=== PATIENT | female | born 1995 | race Caucasian/White ===

== ENCOUNTER 2016-11-16 11:19 | Emergency (ER) | payer OTHER ==
[2016-11-16] MEDS ORDERED: ONDANSETRON 4 MG/2 ML VIAL IVP STA (12:38)
[2016-11-16] MEDS ORDERED: SODIUM CHLORIDE 0.9% 1,000 ML IV STA (12:38)
--- NOTE | 2016-11-16 12:40 | ED ---
Nausea/Vomiting/Diarrhea HPI - General Chief complaint: Nausea/Vomiting/Diarrhea Stated complaint: Flu symptoms Time Seen by Provider: 11/16/16 12:33 Source: patient Mode of arrival: ambulatory Limitations: no limitations - History of Present Illness Initial comments: 21-year-old female onset of vomiting 11:00 last night not able keep anything down. Diarrhea no abdominal pain feels hot and cold no definite fever. Her children have had acute gastroenteritis. No earache mild runny nose minimal cough. No blood in the stool black stools no urinary frequency urgency dysuria. - Related Data Home Medications Medication Instructions Recorded Confirmed ALPRAZolam [Xanax] 0.5 mg PO BID PRN 06/30/16 11/16/16 Etonogestrel/Ethinyl Estradiol 1 ring VAGINAL Q21D 06/30/16 11/16/16 [Nuvaring Vaginal Ring] ARIPiprazole [Abilify] 2 mg PO DAILY 11/16/16 11/16/16 Dextroamphetamine/Amphetamine 20 mg PO BID 11/16/16 11/16/16 [Adderall] Previous Rx's Medication Instructions Recorded Ondansetron Odt [Zofran Odt] 8 mg PO Q8HR PRN #6 tab 11/16/16 Allergies Allergy/AdvReac Type Severity Reaction Status Date / Time morphine Allergy Rash/Hives Verified 11/16/16 13:15 Sulfa (Sulfonamide Allergy Rash/Hives Verified 11/16/16 13:15 Antibiotics) topiramate [From Topamax] Allergy Dyspnea Verified 11/16/16 13:15 Review of Systems ROS Statement: Those systems with pertinent positive or pertinent negative responses have been documented in the HPI. ROS Other: All systems not noted in ROS Statement are negative. Constitutional: Reports: chills. Denies: fever Eyes: Denies: eye pain, eye discharge ENT: Denies: ear pain, throat pain Respiratory: Reports: cough Cardiovascular: Denies: chest pain Gastrointestinal: Reports: nausea, vomiting, diarrhea. Denies: abdominal pain Genitourinary: Denies: urgency, frequency Musculoskeletal: Denies: back pain Skin: Denies: rash Psychiatric: Denies: anxiety, depression Hematological/Lymphatic: Denies: easy bleeding, easy bruising Past Medical History Past Medical History: Thyroid Disorder Additional Past Medical History / Comment(s): history of hepatitis A positive but no illness that she is aware of, breast biopsy right side, not cancer History of Any Multi-Drug Resistant Organisms: None Reported Past Surgical History: Orthopedic Surgery Additional Past Surgical History / Comment(s): childhood ear surgery, ACL repair , facial reconstruction on the left side of her face due to a dog bite at age 1 Past Anesthesia/Blood Transfusion Reactions: No Reported Reaction Past Psychological History: ADD/ADHD, Anxiety, Depression Smoking Status: Heavy tobacco smoker Past Alcohol Use History: Occasional Past Drug Use History: Marijuana - Past Family History Mother Family Medical History: No Reported History General Exam Limitations: no limitations General appearance: alert, lethargic Head exam: Present: atraumatic Eye exam: Present: PERRL, EOMI ENT exam: Present: normal oropharynx, mucous membranes dry Respiratory exam: Present: normal lung sounds bilaterally Cardiovascular Exam: Present: regular rate, normal heart sounds GI/Abdominal exam: Present: soft, normal bowel sounds. Absent: tenderness, guarding, rebound Neurological exam: Present: alert, CN II-XII intact Psychiatric exam: Present: normal affect, normal mood Skin exam: Present: warm, dry Course Vital Signs 11/16/16 11/16/16 11:23 13:24 Temperature 97.8 F Pulse Rate 77 72 Respiratory 20 18 Rate Blood Pressure 121/82 113/58 O2 Sat by Pulse 97 97 Oximetry Medical Decision Making - Medical Decision Making Nausea better with Zofran given a liter fluids is doing better tolerated a Popsicle would like to go home was sent home with a Zofran ODT. Follow-up may return if not able keep anything down we'll gradually increase her diet and is been discussed. - Lab Data Result diagrams: 11/16/16 13:22 11/16/16 13:22 Lab Results 11/16/16 11/16/16 Range/Units 13:22 13:22 WBC 8.4 (3.8-10.6) k/uL RBC 5.22 (3.80-5.40) m/uL Hgb 14.9 (11.4-16.0) gm/dL Hct 45.9 (34.0-46.0) % MCV 88.0 (80.0-100.0) fL MCH 28.7 (25.0-35.0) pg MCHC 32.6 (31.0-37.0) g/dL RDW 13.3 (11.5-15.5) % Plt Count 369 (150-450) k/uL Neutrophils % 84 % Lymphocytes % 12 % Monocytes % 2 % Eosinophils % 1 % Basophils % 0 % Neutrophils # 7.1 (1.3-7.7) k/uL Lymphocytes # 1.0 (1.0-4.8) k/uL Monocytes # 0.2 (0-1.0) k/uL Eosinophils # 0.1 (0-0.7) k/uL Basophils # 0.0 (0-0.2) k/uL Sodium 141 (137-145) mmol/L Potassium 4.0 (3.5-5.1) mmol/L Chloride 108 H (98-107) mmol/L Carbon Dioxide 21 L (22-30) mmol/L Anion Gap 12 mmol/L BUN 10 (7-17) mg/dL Creatinine 0.70 (0.52-1.04) mg/dL Est GFR (MDRD) Af Amer >60 (>60 ml/min/1.73 sqM) Est GFR (MDRD) Non-Af >60 (>60 ml/min/1.73 sqM) Glucose 110 H (74-99) mg/dL Calcium 9.7 (8.4-10.2) mg/dL Disposition Clinical Impression: Dehydration, Gastroenteritis Disposition: HOME SELF-CARE Instructions: Acute Nausea and Vomiting (ED) Prescriptions: Ondansetron Odt [Zofran Odt] 8 mg PO Q8HR PRN #6 tab PRN Reason: Nausea Referrals: Rashard Stock MD [Primary Care Provider] - 1-2 days Time of Disposition: 14:58
[2016-11-16 13:34] LABS: Basophils % (A) 0 %; CH 29.1; CHCM 33.2; Eosinophils # (A) 0.1 k/uL (0-0.7); Eosinophils % (A) 1 %; HCT 45.9 % (34.0-46.0); HDW 2.61; HGB 14.9 gm/dL (11.4-16.0); Luc # (Auto) 0.06; Luc % (Auto) 1; Lymphocytes % (A) 12 %; MCH 28.7 pg (25.0-35.0); MCHC 32.6 g/dL (31.0-37.0); Mean Platelet Volume 6.2; Monocytes # (A) 0.2 k/uL (0-1.0); Monocytes % (A) 2 %; Neutrophils # (A) 7.1 k/uL (1.3-7.7); Neutrophils % (A) 84 %; RBC 5.22 m/uL (3.80-5.40); RDW 13.3 % (11.5-15.5); WBC 8.4 k/uL (3.8-10.6); WBC (Perox) 8.82
[2016-11-16 13:50] LABS: Anion Gap 12 mmol/L; Blood Urea Nitrogen 10 mg/dL (7-17); Calcium 9.7 mg/dL (8.4-10.2); Carbon Dioxide 21 mmol/L (22-30); Chloride 108 mmol/L (98-107); Glucose 110 mg/dL (74-99); Non-African American GFR(MDRD) >60 (>60 ml/min/1.73 sqM); Sodium 141 mmol/L (137-145)
[2016-11-16 15:01] VITALS: BP 117/70; PULSE 84; RESP 16; TEMP 98.9
== END 2016-11-16 15:05 | disposition home or self-care (01) ==
LOC: EC 11:19
DX: K52.9 Noninfective gastroenteritis and colitis, unspecified (principal); E86.0 Dehydration; R05 Cough; R09.89 Other specified symptoms and signs involving the circulatory and respiratory systems; F90.9 Attention-deficit hyperactivity disorder, unspecified type; F41.9 Anxiety disorder, unspecified; F32.9 Major depressive disorder, single episode, unspecified; F17.200 Nicotine dependence, unspecified, uncomplicated; Z79.899 Other long term (current) drug therapy; Z88.2 Allergy status to sulfonamides; Z88.5 Allergy status to narcotic agent; Z88.8 Allergy status to other drugs, medicaments and biological substances
CPT/HCPCS: 36415; 80048; 85025; 99284; 96374; 96361 ×2; J2405

== ENCOUNTER 2016-12-03 20:17 | Emergency (ER) | payer OTHER ==
[2016-12-03 21:00] VITALS: BP 131/80; PULSE 102; RESP 20; TEMP 98.6
[2016-12-03] MEDS ORDERED: KETOROLAC 60 MG/2 ML VIAL IM STA (21:27)
[2016-12-03] MEDS ORDERED: ORPHENADRINE 30 MG/ML 2 ML VIAL IM STA (21:27)
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
== END 2016-12-03 22:12 | disposition home or self-care (01) ==
LOC: EC 20:17
DX: M62.838 Other muscle spasm (principal); M54.2 Cervicalgia; R51 Headache; F90.9 Attention-deficit hyperactivity disorder, unspecified type; E07.9 Disorder of thyroid, unspecified; F17.200 Nicotine dependence, unspecified, uncomplicated; Z88.2 Allergy status to sulfonamides; Z88.0 Allergy status to penicillin; Z88.5 Allergy status to narcotic agent; Z79.899 Other long term (current) drug therapy; V49.40XA Driver injured in collision with unspecified motor vehicles in traffic accident, initial encounter; Y92.410 Unspecified street and highway as the place of occurrence of the external cause
CPT/HCPCS: 99284; 96372 ×2; 72070; 72040; J2360; J1885

== ENCOUNTER 2017-02-24 15:42 | Emergency (ER) | payer OTHER ==
[2017-02-24] MEDS ORDERED: cefTRIAXone 250 MG VIAL IM STA (17:18)
[2017-02-24] MEDS ORDERED: AZITHROMYCIN 500 MG TAB PO STA (17:18)
[2017-02-24 17:25] LABS: Appearance,Urine Cloudy (Clear); Bacteria,Urine Rare /hpf; Bilirubin,Urine Negative (Negative); Glucose,Urine (UA) Negative (Negative); Ketones,Urine Negative (Negative); Leukocyte Esterase,Urine Large (Negative); Mucus,Urine Occasional /hpf; Nitrite,Urine Negative (Negative); PH, Urine 6.5 (5.0-8.0); Particle Count 34363; Protein,Urine Trace (Negative); RBC,Urine 8 /hpf (0-5); Specific Gravity,Urine 1.027 (1.001-1.035); Squamous Epithelial Cell,Urine 29 /hpf (0-4); UA Billing (MACRO vs. MICRO) MICRO; Urobilinogen,Urine <2.0 mg/dL (<2.0); WBC,Urine 4 /hpf (0-5)
--- NOTE | 2017-02-24 17:33 | ED ---
General Adult HPI - General Chief complaint: Abdominal Pain Stated complaint: Cough/sore throat/abd pain Time Seen by Provider: 02/24/17 16:21 Source: patient Mode of arrival: ambulatory Limitations: no limitations - History of Present Illness Initial comments: Patient is a 21-year-old female who presents the emergency department for evaluation of vaginal irritation. Patient states that she recently broke up with her significant other for some period of time and is concerned that he may have had other partners during that time, she states she is now having unprotected intercourse with him. She states that for the past approximately 1- 2 weeks she's been experiencing increased vaginal discharge and itching. She reports she's been treated for STIs as well as bacterial vaginosis in the past but this does not feel like either of those. Patient states she initially thought the discharge was physiologicdue to using NuvaRing as control. However it has persisted even after her menses which was last week she became concerned that this may be essentially transmitted infection. In addition the patient reports that she's been suffering from URI like symptoms for a number of weeks. He states that she saw her primary care physician 2 weeks ago and was prescribed Claritin for seasonal ALLERGIES. She reports that despite being compliant with Claritin she continues to experience fullness in her ears, congestion and cough early in the morning. Patient does report that she is in every day cigarette smoker but she has been trying to reduce the frequency of smoking. - Related Data Home Medications Medication Instructions Recorded Confirmed ALPRAZolam [Xanax] 0.5 mg PO BID PRN 06/30/16 02/24/17 Etonogestrel/Ethinyl Estradiol 1 ring VAGINAL Q21D 06/30/16 02/24/17 [Nuvaring Vaginal Ring] ARIPiprazole [Abilify] 2 mg PO DAILY 11/16/16 02/24/17 Dextroamphetamine/Amphetamine 20 mg PO BID 11/16/16 02/24/17 [Adderall] Levothyroxine Sodium [Synthroid] 150 mcg PO DAILY 12/03/16 02/24/17 Loratadine [Claritin] 10 mg PO DAILY 02/24/17 02/24/17 Naproxen 500 mg PO BID PRN 02/24/17 02/24/17 Previous Rx's Medication Instructions Recorded metroNIDAZOLE [Flagyl] 500 mg PO BID #14 tab 02/24/17 Allergies Allergy/AdvReac Type Severity Reaction Status Date / Time morphine Allergy Rash/Hives Verified 02/24/17 16:14 Sulfa (Sulfonamide Allergy Rash/Hives Verified 02/24/17 16:14 Antibiotics) topiramate [From Topamax] Allergy Anaphylaxis Verified 02/24/17 16:14 amoxicillin AdvReac Nausea & Verified 02/24/17 16:14 Vomiting Review of Systems ROS Statement: Those systems with pertinent positive or pertinent negative responses have been documented in the HPI. ROS Other: All systems not noted in ROS Statement are negative. Constitutional: Reports: fever (subjective). Denies: chills Eyes: Denies: vision change ENT: Reports: ear pain, congestion. Denies: hearing loss Respiratory: Reports: cough (productive in the mornings, chronic for years) Cardiovascular: Denies: chest pain, edema Endocrine: Denies: fatigue Gastrointestinal: Denies: abdominal pain, nausea, vomiting Genitourinary: Reports: discharge. Denies: urgency, dysuria, frequency, abnormal menses, dyspareunia Skin: Denies: rash, lesions Neurological: Denies: headache Psychiatric: Denies: anxiety, depression Hematological/Lymphatic: Denies: easy bleeding, easy bruising Past Medical History Past Medical History: Thyroid Disorder Additional Past Medical History / Comment(s): history of hepatitis A positive but no illness that she is aware of, breast biopsy right side, not cancer History of Any Multi-Drug Resistant Organisms: None Reported Past Surgical History: Orthopedic Surgery Additional Past Surgical History / Comment(s): childhood ear surgery, ACL repair , facial reconstruction on the left side of her face due to a dog bite at age 1 Past Anesthesia/Blood Transfusion Reactions: No Reported Reaction Past Psychological History: ADD/ADHD, Anxiety, Depression Smoking Status: Current every day smoker Past Alcohol Use History: Occasional Past Drug Use History: Marijuana - Past Family History Mother Family Medical History: No Reported History General Exam Limitations: no limitations General appearance: alert, in no apparent distress, obese Head exam: Present: atraumatic, normocephalic, normal inspection Eye exam: Present: normal appearance, PERRL, EOMI. Absent: scleral icterus, conjunctival injection, periorbital swelling ENT exam: Present: normal exam, mucous membranes moist Neck exam: Present: normal inspection. Absent: tenderness, meningismus, lymphadenopathy Respiratory exam: Present: normal lung sounds bilaterally. Absent: respiratory distress, wheezes, rales, rhonchi, stridor Cardiovascular Exam: Present: regular rate, normal rhythm, normal heart sounds. Absent: systolic murmur, diastolic murmur, rubs, gallop, clicks GI/Abdominal exam: Present: soft, normal bowel sounds. Absent: distended, tenderness, guarding, rebound, rigid Rectal exam: Present: deferred External exam: Present: normal external exam. Absent: erythema, swelling, lesions Speculum exam: Present: vaginal discharge. Absent: vaginal bleeding, laceration (white vaginal discharge, appears physiologic) By manual exam: Present: normal by manual exam. Absent: cervical motion tenderness, adnexal tenderness, adnexal mass Extremities exam: Present: normal inspection, full ROM, normal capillary refill. Absent: tenderness, pedal edema, joint swelling, calf tenderness Back exam: Present: normal inspection Neurological exam: Present: alert, oriented X3, CN II-XII intact Psychiatric exam: Present: normal affect, normal mood Skin exam: Present: warm, dry, intact, normal color. Absent: rash Course Vital Signs 02/24/17 16:01 Temperature 98.3 F Pulse Rate 103 H Respiratory 20 Rate Blood Pressure 129/88 O2 Sat by Pulse 99 Oximetry - Reevaluation(s) Reevaluation #1: Patient re-evaluated, sitting on bed eating cheez-its comfortably Pelvic exam completed, thin whitish discharge, will treat for BV. Patient requests treatment for STI rather than waiting for results. 02/24/17 17:21 Medical Decision Making - Medical Decision Making Patient was seen and evaluated vital signs were reviewed Patient was noted to be tachycardic while in triage, however was not tachycardic upon evaluation Does express some level of anxiety and embarrassment regarding her chief complaint Patient with concern for exposure to sexually transmitted infection, some vaginal itching and discharge Urinalysis obtained appears grossly contaminated with multiple squamous epithelium, no concern for urinary tract infection from the patient and therefore will not treat Physical exam with [place] white discharge, no purulence, no cervical motion tenderness or adnexal tenderness Patient requesting empiric treatment for sexual transmitted infection, Rocephin , azithromycin ordered. Patient prescribed Flagyl for bacterial vaginosis. I advised the patient that she cannot drink alcohol while taking Flagyl as it can cause a severe reaction. Patient stated that she has taken Flagyl before and is aware. She states she will abstain from any alcohol intake while taking Flagyl and for 24 hours after completing the medication. All questions pertaining to care were answered to the best of my ability. Patient was discharged home in stable condition and advised she will be notified of any positive culture results. Otherwise she can call medical records for her results. - Lab Data Lab Results 02/24/17 02/24/17 02/24/17 Range/Units 16:50 16:50 17:17 Urine Color Yellow Urine Appearance Cloudy H (Clear) Urine pH 6.5 (5.0-8.0) Ur Specific [place] 1.027 (1.001-1.035) Urine Protein Trace H (Negative) Urine Glucose (UA) Negative (Negative) Urine Ketones Negative (Negative) Urine Blood Negative (Negative) Urine Nitrite Negative (Negative) Urine Bilirubin Negative (Negative) Urine Urobilinogen <2.0 (<2.0) mg/dL Ur Leukocyte Esterase Large H (Negative) Urine RBC 8 H (0-5) /hpf Urine WBC 4 (0-5) /hpf Ur Squamous Epith Cells 29 H (0-4) /hpf Urine Bacteria Rare H (None) /hpf Urine Mucus Occasional H (None) /hpf Urine Yeast (Budding) Occasional H (None) /hpf Urine HCG, Qual Not Detected (Not Detectd) Trichomonas Ag (Rapid) Negative (Negative) Disposition Clinical Impression: Vaginal discharge Disposition: HOME SELF-CARE Condition: Good Instructions: Bacterial Vaginosis (ED), Vaginal Discharge (ED), Safe Sex (ED), Sexually Transmitted Diseases (ED) Prescriptions: metroNIDAZOLE [Flagyl] 500 mg PO BID #14 tab Referrals: Rashard Stock MD [Primary Care Provider] - 1-2 days Decision Time: 17:36
[2017-02-24 18:38] VITALS: BP 135/90; PULSE 94; RESP 18; TEMP 99
== END 2017-02-24 18:39 | disposition home or self-care (01) ==
LOC: EC 15:42
DX: N89.8 Other specified noninflammatory disorders of vagina (principal); Z20.2 Contact with and (suspected) exposure to infections with a predominantly sexual mode of transmission; E07.9 Disorder of thyroid, unspecified; F32.9 Major depressive disorder, single episode, unspecified; F90.9 Attention-deficit hyperactivity disorder, unspecified type; F17.210 Nicotine dependence, cigarettes, uncomplicated; Z97.5 Presence of (intrauterine) contraceptive device; Z88.0 Allergy status to penicillin; Z88.2 Allergy status to sulfonamides; Z88.5 Allergy status to narcotic agent; Z88.8 Allergy status to other drugs, medicaments and biological substances; Z79.899 Other long term (current) drug therapy
CPT/HCPCS: 99284; 96372; 87591; 87491; 81001; 81025; 87808; 87086; J0696

== ENCOUNTER 2017-04-22 20:50 | Emergency (ER) | payer OTHER ==
[2017-04-22] MEDS ORDERED: SODIUM CHLORIDE 0.9% 1,000 ML IV ONE (21:38)
[2017-04-22] MEDS ORDERED: ACETAMINOPHEN TAB 500 MG TAB PO STA (21:38)
[2017-04-22] MEDS ORDERED: diphenhydrAMINE 50 MG/ML 1 ML VIAL IVP STA (21:40)
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
[2017-04-22 22:20] LABS: Basophils # (A) 0.1 k/uL (0-0.2); Basophils % (A) 1 %; CHCM 33.3; Eosinophils # (A) 0.4 k/uL (0-0.7); Eosinophils % (A) 3 %; HCT 40.9 % (34.0-46.0); HDW 2.73; HGB 13.9 gm/dL (11.4-16.0); Luc # (Auto) 0.15; Luc % (Auto) 1; Lymphocytes # (A) 3.3 k/uL (1.0-4.8); Lymphocytes % (A) 27 %; MCH 29.9 pg (25.0-35.0); MCHC 34.1 g/dL (31.0-37.0); MCV 87.6 fL (80.0-100.0); Mean Platelet Volume 6.3; Monocytes # (A) 0.5 k/uL (0-1.0); Monocytes % (A) 4 %; Neutrophils # (A) 7.7 k/uL (1.3-7.7); Neutrophils % (A) 64 %; RBC 4.67 m/uL (3.80-5.40); RDW 13.3 % (11.5-15.5); WBC 12.2 k/uL (3.8-10.6); WBC (Perox) 12.94
[2017-04-22 22:31] LABS: Partial Thromboplastin Time 23.3 sec (22.0-30.0)
[2017-04-22 22:32] LABS: ALT 70 U/L (9-52); AST 43 U/L (14-36); Alkaline Phosphatase 77 U/L (38-126); Anion Gap 10 mmol/L; Blood Urea Nitrogen 9 mg/dL (7-17); Calcium 9.8 mg/dL (8.4-10.2); Carbon Dioxide 22 mmol/L (22-30); Chloride 108 mmol/L (98-107); Glucose 100 mg/dL (74-99); Non-African American GFR(MDRD) >60 (>60 ml/min/1.73 sqM); Potassium 4.4 mmol/L (3.5-5.1); Sodium 140 mmol/L (137-145); Total Bilirubin 0.3 mg/dL (0.2-1.3); Total Protein 6.7 g/dL (6.3-8.2)
--- NOTE | 2017-04-22 23:24 | US ---
EXAM: US Uterus, Limited CLINICAL HISTORY: Reason: Pain TECHNIQUE: Real-time ultrasound of the maternal uterus (limited) with image documentation. COMPARISON: No relevant prior studies available. FINDINGS: Fetus: A gestational sac is identified in the endometrial canal. A yolk sac is seen. A pole and cardiac activity are not identified. Estimated sonographic gestational age is 5 weeks and 6 days. Uterus: Uterus measures 7.7 x 5.0 x 5.4 cm. No myometrial mass. Adnexa: The ovaries are unremarkable in size and appearance bilaterally with normal vascular flow, measuring 4.1 x 2.0 x 2.7 cm on the right and 3.1 x 2.5 x 1.4 cm on the left. No adnexal masses. Free fluid: No free fluid. IMPRESSION: Early intrauterine with an estimated sonographic gestational age of 5 weeks and 6 days. A pole and cardiac activity were not identified which is likely due to early gestational age. Short interval follow-up is recommended. MTDD
[2017-04-22 23:38] LABS: Appearance,Urine Cloudy (Clear); Bacteria,Urine Rare /hpf; Bilirubin,Urine Negative (Negative); Calcium Oxalate Crystals,Urine Occasional /hpf; Glucose,Urine (UA) Negative (Negative); Ketones,Urine Trace (Negative); Leukocyte Esterase,Urine Small (Negative); Mucus,Urine Rare /hpf; Nitrite,Urine Negative (Negative); PH, Urine 5.5 (5.0-8.0); Particle Count 11472; Protein,Urine 1+ (Negative); RBC,Urine 1 /hpf (0-5); Specific Gravity,Urine 1.021 (1.001-1.035); Squamous Epithelial Cell,Urine 3 /hpf (0-4); UA Billing (MACRO vs. MICRO) MICRO; Urobilinogen,Urine <2.0 mg/dL (<2.0); WBC,Urine 5 /hpf (0-5)
[2017-04-23 00:10] VITALS: BP 103/51; PULSE 85; RESP 17; TEMP 98.7
== END 2017-04-23 00:10 | disposition home or self-care (01) ==
LOC: EC 20:50
DX: O99.89 Other specified diseases and conditions complicating pregnancy, childbirth and the puerperium (principal); M62.838 Other muscle spasm; O99.281 Endocrine, nutritional and metabolic diseases complicating pregnancy, first trimester; E07.9 Disorder of thyroid, unspecified; O99.331 Smoking (tobacco) complicating pregnancy, first trimester; F17.200 Nicotine dependence, unspecified, uncomplicated; Z79.899 Other long term (current) drug therapy; Z88.0 Allergy status to penicillin; Z88.2 Allergy status to sulfonamides; Z88.5 Allergy status to narcotic agent; Z88.8 Allergy status to other drugs, medicaments and biological substances; Z67.10 Type A blood, Rh positive; Z3A.01 Less than 8 weeks gestation of pregnancy; Y04.0XXA Assault by unarmed brawl or fight, initial encounter; Y92.008 Other place in unspecified non-institutional (private) residence as the place of occurrence of the external cause
CPT/HCPCS: 36415; 86900; 86901; 80053; 85025; 85610; 85730; 81001; 84702; 76817; 99285; 96374; 96361 ×2; J1200; 76801

== ENCOUNTER 2017-05-25 17:07 | Emergency (ER) | payer OTHER ==
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
[2017-05-25 18:45] VITALS: BP 109/73; PULSE 92; RESP 16; TEMP 98
== END 2017-05-25 18:55 | disposition home or self-care (01) ==
LOC: EC 17:07
DX: N39.0 Urinary tract infection, site not specified (principal); N83.201 Unspecified ovarian cyst, right side; N89.8 Other specified noninflammatory disorders of vagina; E07.9 Disorder of thyroid, unspecified; F32.9 Major depressive disorder, single episode, unspecified; F90.9 Attention-deficit hyperactivity disorder, unspecified type; F17.200 Nicotine dependence, unspecified, uncomplicated; Z79.3 Long term (current) use of hormonal contraceptives; Z79.899 Other long term (current) drug therapy; Z88.0 Allergy status to penicillin; Z88.2 Allergy status to sulfonamides; Z88.5 Allergy status to narcotic agent; Z88.8 Allergy status to other drugs, medicaments and biological substances
CPT/HCPCS: 99283

== ENCOUNTER 2017-08-11 17:25 | Emergency (ER) | payer OTHER ==
--- NOTE | 2017-08-11 18:24 | ED ---
General Adult HPI - General Chief complaint: Upper Respiratory Infection Stated complaint: Thoat Pain, Cough Time Seen by Provider: 08/11/17 17:45 Source: patient, RN notes reviewed Mode of arrival: ambulatory Limitations: no limitations - History of Present Illness Initial comments: This is a 21-year-old female who presents to the emergency department with chief complaint of upper respiratory symptoms. Patient states that she has had a productive cough, sore throat and facial congestion for the past 7 days. She states that she has had fevers, her last one being 3 days ago. She states that she is a current, every day smoker. States that she has a history of frequent sinus infections. Denies chest pain, shortness of breath, abdominal pain, nausea or vomiting, constipation or diarrhea, dysuria or hematuria, numbness or tingling, headache or vision changes. - Related Data Home Medications Medication Instructions Recorded Confirmed Levothyroxine Sodium [Synthroid] 150 mcg PO QAM 12/03/16 05/25/17 ALPRAZolam [Xanax] 0.5 mg PO BID PRN 05/25/17 05/25/17 ARIPiprazole [Abilify] 4 mg PO DAILY 05/25/17 05/25/17 Dextroamphetamine/Amphetamine 20 mg PO BID 05/25/17 05/25/17 [Adderall] Etonogestrel/Ethinyl Estradiol 1 ring VG Q21D 05/25/17 05/25/17 [Nuvaring Vaginal Ring] Ibuprofen [Motrin] 800 mg PO Q6HR PRN 05/25/17 05/25/17 Previous Rx's Medication Instructions Recorded Acetaminophen-Codeine 300-30mg 1 tab PO Q6H PRN #15 tablet 05/25/17 [Tylenol #3] Ciprofloxacin HCl [Cipro] 500 mg PO Q12HR #14 tablet 05/25/17 Ibuprofen [Motrin] 600 mg PO Q8HR PRN #30 tab 05/25/17 Azithromycin [Zithromax Z-pack] 0 mg PO DIRECTED #6 tab 08/11/17 Allergies Allergy/AdvReac Type Severity Reaction Status Date / Time morphine Allergy Rash/Hives Verified 08/11/17 17:32 Sulfa (Sulfonamide Allergy Rash/Hives Verified 08/11/17 17:32 Antibiotics) topiramate [From Topamax] Allergy Anaphylaxis Verified 08/11/17 17:32 Penicillins AdvReac Nausea & Verified 08/11/17 17:32 Vomiting Review of Systems ROS Statement: Those systems with pertinent positive or pertinent negative responses have been documented in the HPI. ROS Other: All systems not noted in ROS Statement are negative. Past Medical History Past Medical History: Thyroid Disorder Additional Past Medical History / Comment(s): history of hepatitis A positive but no illness that she is aware of, breast biopsy right side, not cancer History of Any Multi-Drug Resistant Organisms: None Reported Past Surgical History: Orthopedic Surgery Additional Past Surgical History / Comment(s): childhood ear surgery, ACL repair , facial reconstruction on the left side of her face due to a dog bite at age 1 Past Anesthesia/Blood Transfusion Reactions: No Reported Reaction Past Psychological History: ADD/ADHD, Anxiety, Depression Smoking Status: Current every day smoker Past Alcohol Use History: Occasional Past Drug Use History: Marijuana - Past Family History Mother Family Medical History: No Reported History General Exam - General Exam Comments Initial Comments: General: Awake and alert, well-developed; in no apparent distress. HEENT: Head atraumatic, normocephalic. Pupils are equal, round and reactive to light. Extraocular movements intact. Oropharynx moist with mild erythema. No exudates. Neck: Supple. Normal ROM. Tender anterior cervical lymphadenopathy. Cardiovascular: Regular rate and rhythm. No murmurs, rubs or gallops. Chest symmetrical. Respiratory: Lungs clear to auscultation bilaterally. No wheezes, rales or rhonchi. Normal respiratory effort with no use of accessory muscles. Musculoskeletal: Normal ROM, no tenderness bilateral upper and lower extremities. Ambulating normally. Skin: [place], warm and dry without rashes or lesions. Neurological: Alert and oriented x3. CN II-XII grossly intact. Speech is fluent and answers are appropriate. No focal neuro deficits. Psychiatric: Normal mood and affect. No overt signs of depression or anxiety noted. Limitations: no limitations Course Vital Signs 08/11/17 17:29 Temperature 97.7 F Pulse Rate 98 Respiratory 20 Rate Blood Pressure 132/71 O2 Sat by Pulse 99 Oximetry Medical Decision Making - Medical Decision Making This is a 21-year-old female who presents with chief complaint of cough, sore throat and facial congestion for the past 3 days. Rapid strep is negative. Chest x-ray revealed no acute abnormalities. Patient will be treated for an acute sinusitis as she has sinus congestion and tenderness on palpation. She is in no acute distress at this time and will be discharged home. Patient is in agreement and voices understanding. All questions were answered. - Radiology Data Radiology results: report reviewed Chest x-ray impression: Normal chest. No change. Disposition Clinical Impression: Sinusitis Disposition: HOME SELF-CARE Condition: Good Instructions: Sinusitis (ED) Additional Instructions: Please take medications as prescribed. Please follow up with primary care provider within 1-2 days. Return to emergency department if symptoms should worsen or any concerns arise. Prescriptions: Azithromycin [Zithromax Z-pack] 0 mg PO DIRECTED #6 tab Referrals: Rashard Stock MD [Primary Care Provider] - 1-2 days Time of Disposition: 18:39
--- NOTE | 2017-08-11 18:29 | XR ---
EXAMINATION TYPE: XR chest 2V DATE OF EXAM: 08/11/2017 COMPARISON: 11/17/2015 HISTORY: Cough TECHNIQUE: Frontal and lateral views of the chest are obtained. FINDINGS: Heart and mediastinum are normal. Lungs are clear. Diaphragm is normal. Bony thorax appear s normal. IMPRESSION: Normal chest. No change.
[2017-08-12 23:11] VITALS: BP 132/71; PULSE 98; RESP 20; TEMP 97.7
== END 2017-08-11 18:47 | disposition home or self-care (01) ==
LOC: EC 17:25
DX: J01.90 Acute sinusitis, unspecified (principal); R59.0 Localized enlarged lymph nodes; J02.9 Acute pharyngitis, unspecified; E07.9 Disorder of thyroid, unspecified; F32.9 Major depressive disorder, single episode, unspecified; F90.9 Attention-deficit hyperactivity disorder, unspecified type; F17.200 Nicotine dependence, unspecified, uncomplicated; Z79.3 Long term (current) use of hormonal contraceptives; Z79.899 Other long term (current) drug therapy; Z88.0 Allergy status to penicillin; Z88.2 Allergy status to sulfonamides; Z88.5 Allergy status to narcotic agent; Z88.8 Allergy status to other drugs, medicaments and biological substances
CPT/HCPCS: 71046; 87081; 87430; 99283

== ENCOUNTER 2017-09-02 19:04 | Emergency (ER) | payer OTHER ==
[2017-09-02] MEDS ORDERED: SODIUM CHLORIDE 0.9% 1,000 ML IV STA (20:52)
[2017-09-02 21:18] LABS: Basophils # (A) 0.1 k/uL (0-0.2); Basophils % (A) 1 %; Eosinophils # (A) 0.4 k/uL (0-0.7); Eosinophils % (A) 3 %; HGB 13.6 gm/dL (11.4-16.0); Lymphocytes # (A) 3.3 k/uL (1.0-4.8); Lymphocytes % (A) 26 %; MCH 28.3 pg (25.0-35.0); MCHC 33.1 g/dL (31.0-37.0); MCV 85.4 fL (80.0-100.0); Mean Platelet Volume 6.9; Monocytes # (A) 0.4 k/uL (0-1.0); Monocytes % (A) 3 %; Neutrophils # (A) 8.5 k/uL (1.3-7.7); Neutrophils % (A) 66 %; Platelet Count 389 k/uL (150-450); RBC 4.81 m/uL (3.80-5.40); RDW 14.9 % (11.5-15.5); WBC 12.8 k/uL (3.8-10.6)
[2017-09-02 21:28] LABS: ALT 40 U/L (9-52); AST 20 U/L (14-36); Albumin 4.5 g/dL (3.5-5.0); Alkaline Phosphatase 79 U/L (38-126); Amylase 73 U/L (30-110); Anion Gap 12 mmol/L; Blood Urea Nitrogen 9 mg/dL (7-17); Calcium 10.2 mg/dL (8.4-10.2); Carbon Dioxide 23 mmol/L (22-30); Chloride 104 mmol/L (98-107); Glucose 87 mg/dL (74-99); Lipase 158 U/L (23-300); Sodium 139 mmol/L (137-145); Total Bilirubin 0.3 mg/dL (0.2-1.3); Total Protein 7.3 g/dL (6.3-8.2)
[2017-09-02 21:44] LABS: HCG,Quantitative Serum 14293.1 mIU/mL
[2017-09-02 21:51] LABS: Appearance,Urine Cloudy (Clear); Bacteria,Urine Rare /hpf; Bilirubin,Urine Negative (Negative); Blood,Urine Trace (Negative); Color,Urine Light Yellow; Glucose,Urine (UA) Negative (Negative); Ketones,Urine Negative (Negative); Leukocyte Esterase,Urine Negative (Negative); Nitrite,Urine Negative (Negative); Protein,Urine Negative (Negative); RBC,Urine <1 /hpf (0-5); Specific Gravity,Urine 1.007 (1.001-1.035); Squamous Epithelial Cell,Urine 13 /hpf (0-4); Urobilinogen,Urine <2.0 mg/dL (<2.0); WBC,Urine <1 /hpf (0-5)
--- NOTE | 2017-09-02 22:04 | ED ---
Abdominal Pain HPI - General Chief Complaint: Abdominal Pain Stated Complaint: and spotting, nausea Time Seen by Provider: 09/02/17 20:42 Source: patient, RN notes reviewed, old records reviewed Mode of arrival: ambulatory Limitations: no limitations - History of Present Illness Initial Comments: Patient is a 21-year-old female presents emergency Department a chief complaint of 4 days of nausea. She reports that she's been having some vaginal spotting today. She reports she took a positive test earlier this week. Patient states that she has had no fever or chills. She reports she is to have outpatient knee surgery tomorrow. She states she has normal urinations and bowel habits. - Related Data Home Medications Medication Instructions Recorded Confirmed Levothyroxine Sodium [Synthroid] 150 mcg PO DAILY 12/03/16 09/02/17 Acetaminophen [Tylenol Extra 500 mg PO BID PRN 09/02/17 09/02/17 Strength] Previous Rx's Medication Instructions Recorded Metoclopramide [Reglan] 5 mg PO ACHS #12 tab 09/02/17 Allergies Allergy/AdvReac Type Severity Reaction Status Date / Time morphine Allergy Rash/Hives Verified 09/02/17 20:31 Sulfa (Sulfonamide Allergy Rash/Hives Verified 09/02/17 20:31 Antibiotics) topiramate [From Topamax] Allergy Anaphylaxis Verified 09/02/17 20:31 Penicillins AdvReac Nausea & Verified 09/02/17 20:31 Vomiting Review of Systems ROS Statement: Those systems with pertinent positive or pertinent negative responses have been documented in the HPI. ROS Other: All systems not noted in ROS Statement are negative. Past Medical History Past Medical History: Thyroid Disorder Additional Past Medical History / Comment(s): history of hepatitis A positive but no illness that she is aware of, breast biopsy right side, not cancer History of Any Multi-Drug Resistant Organisms: None Reported Past Surgical History: Orthopedic Surgery Additional Past Surgical History / Comment(s): childhood ear surgery, ACL repair , facial reconstruction on the left side of her face due to a dog bite at age 1 Past Anesthesia/Blood Transfusion Reactions: No Reported Reaction Past Psychological History: ADD/ADHD, Anxiety, Depression Smoking Status: Current every day smoker Past Alcohol Use History: Rare Past Drug Use History: Marijuana - Past Family History Mother Family Medical History: No Reported History General Exam - General Exam Comments Initial Comments: This is a 21 year old female, no distress. Limitations: no limitations General appearance: alert, in no apparent distress Head exam: Present: atraumatic, normocephalic, normal inspection Eye exam: Present: normal appearance, PERRL, EOMI. Absent: scleral icterus, conjunctival injection, periorbital swelling ENT exam: Present: normal exam, mucous membranes moist Neck exam: Present: normal inspection. Absent: tenderness, meningismus, lymphadenopathy Respiratory exam: Present: normal lung sounds bilaterally. Absent: respiratory distress, wheezes, rales, rhonchi, stridor Cardiovascular Exam: Present: regular rate, normal rhythm, normal heart sounds. Absent: systolic murmur, diastolic murmur, rubs, gallop, clicks GI/Abdominal exam: Present: soft, normal bowel sounds. Absent: distended, tenderness, guarding, rebound, rigid External exam: Present: normal external exam Speculum exam: Present: normal speculum exam. Absent: erythema, vaginal discharge By manual exam: Present: normal by manual exam Extremities exam: Present: normal inspection, full ROM, normal capillary refill. Absent: tenderness, pedal edema, joint swelling, calf tenderness Back exam: Present: normal inspection Course Vital Signs 09/02/17 09/02/17 09/02/17 19:27 22:12 23:38 Temperature 98.4 F 98 F Pulse Rate 96 76 92 Respiratory 20 18 18 Rate Blood Pressure 121/59 102/49 140/65 O2 Sat by Pulse 99 100 99 Oximetry Medical Decision Making - Medical Decision Making This is a 21 year old female with persistent nausea and vomiting for 4 days, she also reports she has a positive test one week ago. She reports she had vaginal bleeding today. She relates she is to have surgery tomorrow on her L knee meniscus. At this time tiara has no significant abdominal tenderness or discomfort. PElvic exam shows no bleeding, no tendenress. Hcg is 14,000. Patient has A positive blood type. US shows gestational sac and yolk sac seen. No pole seen. Sonographic gestational age and LMP age are the same. Left adenexal hypo echoic area with anechoic center representing corpus luteal cya vs. ectopic. Discussed findings with patient. Dsicussed she needs to follow up with OB for repeat US and hcg testing in 2 days. All question answered return parameters discussed. Feels better after fluids and nausea medication. Discharged with reglan. - Lab Data Result diagrams: 09/02/17 21:09 09/02/17 21:09 Lab Results 09/02/17 09/02/17 09/02/17 Range/Units 21:09 21:09 21:24 WBC 12.8 H (3.8-10.6) k/uL RBC 4.81 (3.80-5.40) m/uL Hgb 13.6 (11.4-16.0) gm/dL Hct 41.0 (34.0-46.0) % MCV 85.4 (80.0-100.0) fL MCH 28.3 (25.0-35.0) pg MCHC 33.1 (31.0-37.0) g/dL RDW 14.9 (11.5-15.5) % Plt Count 389 (150-450) k/uL Neutrophils % 66 % Lymphocytes % 26 % Monocytes % 3 % Eosinophils % 3 % Basophils % 1 % Neutrophils # 8.5 H (1.3-7.7) k/uL Lymphocytes # 3.3 (1.0-4.8) k/uL Monocytes # 0.4 (0-1.0) k/uL Eosinophils # 0.4 (0-0.7) k/uL Basophils # 0.1 (0-0.2) k/uL Sodium 139 (137-145) mmol/L Potassium 4.0 (3.5-5.1) mmol/L Chloride 104 (98-107) mmol/L Carbon Dioxide 23 (22-30) mmol/L Anion Gap 12 mmol/L BUN 9 (7-17) mg/dL Creatinine 0.76 (0.52-1.04) mg/dL Est GFR (MDRD) Af Amer >60 (>60 ml/min/1.73 sqM) Est GFR (MDRD) Non-Af >60 (>60 ml/min/1.73 sqM) Glucose 87 (74-99) mg/dL Calcium 10.2 (8.4-10.2) mg/dL Total Bilirubin 0.3 (0.2-1.3) mg/dL AST 20 (14-36) U/L ALT 40 (9-52) U/L Alkaline Phosphatase 79 (38-126) U/L Total Protein 7.3 (6.3-8.2) g/dL Albumin 4.5 (3.5-5.0) g/dL Amylase 73 (30-110) U/L Lipase 158 (23-300) U/L HCG, Quant 50141.1 mIU/mL Urine Color Light Yellow Urine Appearance Cloudy H (Clear) Urine pH 6.0 (5.0-8.0) Ur Specific [place] 1.007 (1.001-1.035) Urine Protein Negative (Negative) Urine Glucose (UA) Negative (Negative) Urine Ketones Negative (Negative) Urine Blood Trace H (Negative) Urine Nitrite Negative (Negative) Urine Bilirubin Negative (Negative) Urine Urobilinogen <2.0 (<2.0) mg/dL Ur Leukocyte Esterase Negative (Negative) Urine RBC <1 (0-5) /hpf Urine WBC <1 (0-5) /hpf Ur Squamous Epith Cells 13 H (0-4) /hpf Urine Bacteria Rare H (None) /hpf Trichomonas Ag (Rapid) (Negative) Blood Type Blood Type Recheck 09/02/17 09/02/17 Range/Units 22:25 23:22 WBC (3.8-10.6) k/uL RBC (3.80-5.40) m/uL Hgb (11.4-16.0) gm/dL Hct (34.0-46.0) % MCV (80.0-100.0) fL MCH (25.0-35.0) pg MCHC (31.0-37.0) g/dL RDW (11.5-15.5) % Plt Count (150-450) k/uL Neutrophils % % Lymphocytes % % Monocytes % % Eosinophils % % Basophils % % Neutrophils # (1.3-7.7) k/uL Lymphocytes # (1.0-4.8) k/uL Monocytes # (0-1.0) k/uL Eosinophils # (0-0.7) k/uL Basophils # (0-0.2) k/uL Sodium (137-145) mmol/L Potassium (3.5-5.1) mmol/L Chloride (98-107) mmol/L Carbon Dioxide (22-30) mmol/L Anion Gap mmol/L BUN (7-17) mg/dL Creatinine (0.52-1.04) mg/dL Est GFR (MDRD) Af Amer (>60 ml/min/1.73 sqM) Est GFR (MDRD) Non-Af (>60 ml/min/1.73 sqM) Glucose (74-99) mg/dL Calcium (8.4-10.2) mg/dL Total Bilirubin (0.2-1.3) mg/dL AST (14-36) U/L ALT (9-52) U/L Alkaline Phosphatase (38-126) U/L Total Protein (6.3-8.2) g/dL Albumin (3.5-5.0) g/dL Amylase (30-110) U/L Lipase (23-300) U/L HCG, Quant mIU/mL Urine Color Urine Appearance (Clear) Urine pH (5.0-8.0) Ur Specific [place] (1.001-1.035) Urine Protein (Negative) Urine Glucose (UA) (Negative) Urine Ketones (Negative) Urine Blood (Negative) Urine Nitrite (Negative) Urine Bilirubin (Negative) Urine Urobilinogen (<2.0) mg/dL Ur Leukocyte Esterase (Negative) Urine RBC (0-5) /hpf Urine WBC (0-5) /hpf Ur Squamous Epith Cells (0-4) /hpf Urine Bacteria (None) /hpf Trichomonas Ag (Rapid) Negative (Negative) Blood Type A Positive Blood Type Recheck No - Radiology Data Radiology results: report reviewed US shows gestational sac and yolk sac seen. No pole seen. Sonographic gestational age and LMP age are the same. Left adenexal hypo echoic area with anechoic center representing corpus luteal cya vs. ectopic. Disposition Clinical Impression: Threatened miscarriage Disposition: HOME SELF-CARE Condition: Good Instructions: Threatened Miscarriage (ED) Additional Instructions: Patient advised to follow-up with [facility]. BP her hormone in 2 days. I recommend calling the surgical center in canceling the surgery. Return to emergency department if any alarming signs or symptoms occur. Prescriptions: Metoclopramide [Reglan] 5 mg PO ACHS #12 tab Referrals: Rashard Stock MD [Primary Care Provider] - 1-2 days Time of Disposition: 23:27
[2017-09-02 22:14] VITALS: RESP 18
--- NOTE | 2017-09-02 22:22 | US ---
EXAMINATION TYPE: US OB <=14 wks transvag DATE OF EXAM: 09/02/2017 COMPARISON: NONE CLINICAL HISTORY: Pain. cramping EXAM PERFORMED: Transvaginal (TV) and Transabdominal (TA) EXAM MEASUREMENTS: GESTATIONAL AGE / DATING Physician Established: Not yet established Dates by LMP: 07/26/2017 (5 weeks/3 days) EDC: 05/02/2018 Dates by First Scan: No previous this is first scan ) Dates by Current Scan for: (5 weeks/4 days) EDC: 05/01/2018 MATERNAL ANATOMY Uterus: 9.1 x 6.0 x 6.2 cm Right Ovary: 2.6 x 1.5 x 1.4 cm Left Ovary: 3.1 x 1.4 x 2.2 cm Post CDS / Adnexa: wnl Presence of free fluid: no Presence of corpus luteal cyst: suggestive of on left ovary Presence of subchorionic bleed: no GESTATION / SURVEY CRL: Not seen MSD: 1.3 cm (5 weeks/4 days) Yolk Sac (normal less than 6mm): 2mm IUP: No IUP seen at this time Date of LMP: Beta HcG (if available): 61011.1 IMPRESSION: 1. Gestational sac and yolk sac seen. No pole seen at this time. 2. Sonographic gestational age and LMP gestational age are same. 2. Left adnexal hypoechoic area with anechoic center seen related to the left ovary measuring 2.3 x 2.7 x 2.2cm; corpus luteal cyst vs. ectopic.
[2017-09-02 23:39] VITALS: BP 140/65; PULSE 92; TEMP 98
[2017-09-04 11:00] LABS: Chlamydia trachomatis rRNA Not detected (Not detected); Neisseria gonorrhoeae rRNA Not detected (Not detected)
== END 2017-09-02 23:38 | disposition home or self-care (01) ==
LOC: EC 19:04
DX: O20.0 Threatened abortion (principal); O99.281 Endocrine, nutritional and metabolic diseases complicating pregnancy, first trimester; E07.9 Disorder of thyroid, unspecified; O99.331 Smoking (tobacco) complicating pregnancy, first trimester; F17.200 Nicotine dependence, unspecified, uncomplicated; Z3A.01 Less than 8 weeks gestation of pregnancy; Z88.5 Allergy status to narcotic agent; Z88.2 Allergy status to sulfonamides; Z88.0 Allergy status to penicillin; Z88.8 Allergy status to other drugs, medicaments and biological substances; Z79.899 Other long term (current) drug therapy
CPT/HCPCS: 36415; 76801; 76817; 80053; 81001; 82150; 83690; 84702; 85025; 86900; 86901; 87070; 87205; 87491; 87591; 87808; 96360; 99284

== ENCOUNTER → 2017-09-04 | Outpatient (CLI) | payer OTHER | END | disposition home or self-care (01) | LOC: LABWHC1 16:18 | PROVIDERS: ATTEND Physician Assistant Medical | DX: O20.0 Threatened abortion (principal); Z3A.00 Weeks of gestation of pregnancy not specified | CPT/HCPCS: 36415; 84702 ==

== ENCOUNTER → 2017-09-21 | Outpatient (CLI) | payer OTHER ==
--- NOTE | 2017-09-21 17:10 | US ---
EXAMINATION TYPE: US OB <= 14 wk fetus DATE OF EXAM: 09/21/2017 COMPARISON: 09/02/2017 CLINICAL HISTORY: Z36 follow up to abnormal US. Follow up, 4, para 2, 1 EXAM PERFORMED: Transabdominal (TA) EXAM MEASUREMENTS: GESTATIONAL AGE / DATING Physician Established: Not established yet Dates by LMP: (8 weeks/1 days) EDC: 05/02/2018 Dates by First Scan: (8 weeks/2 days) EDC: 05/01/2018 Dates by Current Scan for: (8 weeks/4 days) EDC: 04/29/2018 MATERNAL ANATOMY Uterus: 11.3 x 6.1 x 6.6cm, anteverted Right Ovary: 3.0 x 1.7 x 2.1cm Left Ovary: 3.0 x 2.1 x 2.4cm Post CDS / Adnexa: wnl Presence of free fluid: no Presence of corpus luteal cyst: left ovary: 1.5 x 1.5 x 1.3cm cystic area, possible corpus luteum Presence of subchorionic bleed: 2.0 x 1.1 x 1.9cm complex area superior to gestational sac, possible subchorionic bleed GESTATION / SURVEY CRL: 2.0cm (8 weeks/4 days) Yolk Sac (normal less than 6mm): 4.8mm Heart Rate: 163 bpm Rhythm: Normal IUP: Viable IUP Date of LMP: 07/26/2017 Viable single IUP measuring 8 weeks 4 days with a heart rate of 163bpm and an estimated delivery date of 04/29/2018. IMPRESSION: The ultrasound gestational age is 8 weeks 4 days. I see no complicating process. There is satisfactor y development compared to last exam.
== END | disposition home or self-care (01) ==
LOC: RADUSWWP 16:19
PROVIDERS: ATTEND Obstetrics & Gynecology
DX: Z36.2 Encounter for other antenatal screening follow-up (principal); Z3A.08 8 weeks gestation of pregnancy; Z88.2 Allergy status to sulfonamides; Z88.8 Allergy status to other drugs, medicaments and biological substances
CPT/HCPCS: 76801

== ENCOUNTER → 2017-10-12 | Outpatient (CLI) | payer OTHER ==
--- NOTE | 2017-10-12 14:17 | US ---
EXAMINATION TYPE: US OB <= 14 wk fetus DATE OF EXAM: 10/12/2017 COMPARISON: US September 21, 2017 CLINICAL HISTORY: Confirm dates Z36. Confirm Dates, pt has no complaints at this time EXAM PERFORMED: Transabdominal (TA) EXAM MEASUREMENTS: GESTATIONAL AGE / DATING Physician Established: Not yet established Dates by LMP: (11 weeks/1 days) EDC: 05/02/2018 Dates by First Scan: (11 weeks/2 days) EDC: 05/01/2018 Dates by Current Scan for: (11 weeks/6 days) EDC: 04/27/2018 MATERNAL ANATOMY Uterus: 14.5 x 6.2 x 8.4 cm Right Ovary: 2.5 x 3.3 x 1.2 cm Left Ovary: 4.3 x 3.8 x 2.1 cm Post CDS / Adnexa: wnl Presence of free fluid: No Presence of corpus luteal cyst: Left Ovary= 2.4 x 2.3 x 2.7 cm Presence of subchorionic bleed: No GESTATION / SURVEY CRL: 5.0 cm (11 weeks/6 days) MSD: wnl Heart Rate: 161 bpm Rhythm: Normal IUP: Viable IUP Date of LMP: 07/26/2017 Single live intrauterine gestation is redemonstrated as gestational sac and pole are seen. Yolk sac is not clearly identified. No free fluid is seen in pelvic cul-de-sac. Both ovaries are identified. There is no suspicious extraovarian adnexal lesion. There is redemonstra tion of probable corpus luteal cyst in left ovary. IMPRESSION: Single live intrauterine gestation is redemonstrated, mean crown-rump length is 5.0 cm corresponding to 11 weeks 6 day old fetus. Appropriate age progression from prior study noted.
== END | disposition home or self-care (01) ==
LOC: RADUSWWP 13:47
PROVIDERS: ATTEND Obstetrics & Gynecology
DX: Z36.89 Encounter for other specified antenatal screening (principal); Z3A.11 11 weeks gestation of pregnancy
CPT/HCPCS: 76801

== ENCOUNTER 2017-10-18 13:03 | Emergency (ER) | payer OTHER ==
[2017-10-18 13:12] VITALS: BP 139/64; PULSE 93; RESP 18; TEMP 98.4
[2017-10-18] MEDS ORDERED: ACETAMINOPHEN TAB 500 MG TAB PO STA (13:23)
--- NOTE | 2017-10-18 13:31 | ED ---
General Adult HPI - General Chief complaint: Recheck/Abnormal Lab/Rx Stated complaint: Fever/Body Aches Time Seen by Provider: 10/18/17 13:18 Source: patient, RN notes reviewed Mode of arrival: ambulatory Limitations: no limitations - History of Present Illness Initial comments: 22-year-old female who is currently 11 weeks presents to the emergency department with a chief complaint of fever, body aches, mild cough for the past 2 days. She states that she is just felt very under the weather. She is tried Tylenol without much improvement to her symptoms. She states that she has been able to drink while. She states that she has not had any abdominal pain or vaginal bleeding or discharge with this. She was concerned due to the continued body aches and attempt him so she thought that she should be seen. Patient denies any recent shortness of breath, chest pain, back pain, numbness or tingling, dysuria or hematuria, constipation or diarrhea, headaches or visual changes, or any other current symptoms. - Related Data Home Medications Medication Instructions Recorded Confirmed Levothyroxine Sodium [Synthroid] 150 mcg PO DAILY 12/03/16 09/02/17 Acetaminophen [Tylenol Extra 500 mg PO BID PRN 09/02/17 09/02/17 Strength] Previous Rx's Medication Instructions Recorded Metoclopramide [Reglan] 5 mg PO ACHS #12 tab 09/02/17 Allergies Allergy/AdvReac Type Severity Reaction Status Date / Time morphine Allergy Rash/Hives Verified 09/02/17 20:31 Sulfa (Sulfonamide Allergy Rash/Hives Verified 09/02/17 20:31 Antibiotics) topiramate [From Topamax] Allergy Anaphylaxis Verified 09/02/17 20:31 Penicillins AdvReac Nausea & Verified 09/02/17 20:31 Vomiting Review of Systems ROS Statement: Those systems with pertinent positive or pertinent negative responses have been documented in the HPI. ROS Other: All systems not noted in ROS Statement are negative. Past Medical History Past Medical History: Thyroid Disorder Additional Past Medical History / Comment(s): history of hepatitis A positive but no illness that she is aware of, breast biopsy right side, not cancer History of Any Multi-Drug Resistant Organisms: None Reported Past Surgical History: Orthopedic Surgery Additional Past Surgical History / Comment(s): childhood ear surgery, ACL repair , facial reconstruction on the left side of her face due to a dog bite at age 1 Past Anesthesia/Blood Transfusion Reactions: No Reported Reaction Past Psychological History: ADD/ADHD, Anxiety, Depression Smoking Status: Current every day smoker Past Alcohol Use History: Rare Past Drug Use History: None Reported - Past Family History Mother Family Medical History: No Reported History General Exam - General Exam Comments Initial Comments: General exam: Alert, active, comfortable in no apparent distress Head: Normocephalic Eyes: Normal reaction of pupils, equal size, normal range of extraocular motion Ears: normal external ear canals, pink tympanic membranes with normal cone of light Nose: clear with pink turbinates Throat: no erythema or exudates with normal sized tonsils Neck: no masses, no nuchal rigidity Chest: no chest wall deformity Lungs: equal air entry with no crackles or wheeze CVS: S1 and S2 normal with no audible mumurs, regular rhythm Abdomen: no hepatosplenomegaly, normal bowel sounds, no guarding or rigidity Spine: no scoliosis or deformity Skin: no rashes Neurological: No focal deficits, tone is normal in all 4 extremities Limitations: no limitations Course Vital Signs 10/18/17 13:07 Temperature 98.4 F Pulse Rate 93 Respiratory 18 Rate Blood Pressure 139/64 O2 Sat by Pulse 99 Oximetry Medical Decision Making - Medical Decision Making 22 yo female presents to the ER with cc of fever. This time patient's urine is negative strep and influenza both negative. This time we discussed most likely a viral like syndrome. We discussed return parameters and follow-up and all questions. Patient stated that she understood and she is agreement this plan. This time she will be discharged home. - Lab Data Lab Results 10/18/17 10/18/17 10/18/17 Range/Units 13:25 13:55 13:55 Urine Color Yellow Urine Appearance Clear (Clear) Urine pH 5.5 (5.0-8.0) Ur Specific [place] 1.018 (1.001-1.035) Urine Protein Negative (Negative) Urine Glucose (UA) Negative (Negative) Urine Ketones Negative (Negative) Urine Blood Negative (Negative) Urine Nitrite Negative (Negative) Urine Bilirubin Negative (Negative) Urine Urobilinogen <2.0 (<2.0) mg/dL Ur Leukocyte Esterase Negative (Negative) Influenza Type A RNA Not Detected (Not Detectd) Influenza Type B (PCR) Not Detected (Not Detectd) Group A Strep Rapid Negative (Negative) Disposition Clinical Impression: Fever, Viral syndrome Disposition: HOME SELF-CARE Condition: Stable Instructions: Viral Syndrome (ED) Additional Instructions: Please use medication as discussed. Please follow up with family doctor if symptoms have not improved over the next two days. Please return to the emergency room if your symptoms increase or worsen or for any other concerns. Referrals: Rashard Stock MD [Primary Care Provider] - 1-2 days Time of Disposition: 14:24
[2017-10-18 14:15] LABS: Appearance,Urine Clear (Clear); Bilirubin,Urine Negative (Negative); Blood,Urine Negative (Negative); Color,Urine Yellow; Glucose,Urine (UA) Negative (Negative); Ketones,Urine Negative (Negative); Leukocyte Esterase,Urine Negative (Negative); Nitrite,Urine Negative (Negative); PH, Urine 5.5 (5.0-8.0); Protein,Urine Negative (Negative); Specific Gravity,Urine 1.018 (1.001-1.035); Urobilinogen,Urine <2.0 mg/dL (<2.0)
== END 2017-10-18 14:35 | disposition home or self-care (01) ==
LOC: EC 13:03
DX: O98.511 Other viral diseases complicating pregnancy, first trimester (principal); B34.9 Viral infection, unspecified; O99.281 Endocrine, nutritional and metabolic diseases complicating pregnancy, first trimester; E07.9 Disorder of thyroid, unspecified; O99.331 Smoking (tobacco) complicating pregnancy, first trimester; F17.200 Nicotine dependence, unspecified, uncomplicated; Z3A.11 11 weeks gestation of pregnancy; Z79.899 Other long term (current) drug therapy; Z88.0 Allergy status to penicillin; Z88.2 Allergy status to sulfonamides; Z88.5 Allergy status to narcotic agent; Z88.8 Allergy status to other drugs, medicaments and biological substances
CPT/HCPCS: 81003; 87081; 87086; 87430; 87502; 99283

== ENCOUNTER 2017-10-18 19:05 | Emergency (ER) | payer OTHER ==
[2017-10-18 19:23] VITALS: RESP 18
--- NOTE | 2017-10-18 19:35 | ED ---
General Adult HPI - General Chief complaint: Vaginal Bleeding Stated complaint: Vaginal bleeding 11 weeks Time Seen by Provider: 10/18/17 19:34 Source: patient Mode of arrival: ambulatory Limitations: no limitations - Related Data Home Medications Medication Instructions Recorded Confirmed Levothyroxine Sodium [Synthroid] 150 mcg PO DAILY 12/03/16 09/02/17 Acetaminophen [Tylenol Extra 500 mg PO BID PRN 09/02/17 09/02/17 Strength] Previous Rx's Medication Instructions Recorded Metoclopramide [Reglan] 5 mg PO ACHS #12 tab 09/02/17 Allergies Allergy/AdvReac Type Severity Reaction Status Date / Time morphine Allergy Rash/Hives Verified 10/18/17 19:23 Sulfa (Sulfonamide Allergy Rash/Hives Verified 10/18/17 19:23 Antibiotics) topiramate [From Topamax] Allergy Anaphylaxis Verified 10/18/17 19:23 Penicillins AdvReac Nausea & Verified 10/18/17 19:23 Vomiting Review of Systems ROS Statement: Those systems with pertinent positive or pertinent negative responses have been documented in the HPI. ROS Other: All systems not noted in ROS Statement are negative. Past Medical History Past Medical History: Thyroid Disorder Additional Past Medical History / Comment(s): history of hepatitis A positive but no illness that she is aware of, breast biopsy right side, not cancer History of Any Multi-Drug Resistant Organisms: None Reported Past Surgical History: Orthopedic Surgery Additional Past Surgical History / Comment(s): childhood ear surgery, ACL repair , facial reconstruction on the left side of her face due to a dog bite at age 1 Past Anesthesia/Blood Transfusion Reactions: No Reported Reaction Past Psychological History: ADD/ADHD, Anxiety, Depression Smoking Status: Current every day smoker Past Alcohol Use History: Rare Past Drug Use History: None Reported - Past Family History Mother Family Medical History: No Reported History General Exam Limitations: no limitations Course Vital Signs 10/18/17 19:19 Temperature 99.2 F Pulse Rate 104 H Respiratory 18 Rate Blood Pressure 133/73 O2 Sat by Pulse 98 Oximetry Disposition Referrals: Rashard Stock MD [Primary Care Provider] - 1-2 days
[2017-10-18] MEDS ORDERED: SODIUM CHLORIDE 0.9% 1,000 ML IV STA (19:52)
[2017-10-18] MEDS ORDERED: ACETAMINOPHEN TAB 325 MG TAB PO STA (19:52)
--- NOTE | 2017-10-18 20:03 | ED ---
Female Urogenital HPI - General Chief complaint: Vaginal Bleeding Stated complaint: Vaginal bleeding 11 weeks Time Seen by Provider: 10/18/17 19:34 Source: patient Mode of arrival: ambulatory Limitations: no limitations - History of Present Illness Initial comments: 22-year-old female patient presents to the emergency department today for evaluation of vaginal bleeding. Patient reports that bleeding started a couple of hours prior to arrival. She reports she is 11 weeks . Patient is A1, with elective . She reports that she has been feeling unwell for the last couple of days. States that she had fevers high as 101.6. Reporting a body aches and general fatigue. She states that she was seen here and evaluated today and diagnosed with a virus. States that after arriving home she took a nap, when she woke up from the nap she felt a "gushing" sensation and went to the bathroom. She reports passage of bright red blood. Denies any clots. She states she is having lower abdominal cramping and low back pain. States she feels a tightening sensation in her lower abdomen. States she has established care with an PHARMACEUTICAL REPRESENTATIVE Dr. Llamas. States she has had initial testing and ultrasound confirming intrauterine . She denies any hematuria, dysuria, urinary frequency, urinary urgency. Denies any constipation or diarrhea. Patient denies any recent rash, shortness breath, chest pain, numbness, tingling, dizziness, weakness, headache, visual changes, or any other complaints. Last Menstrual Period: 07/26/17 - Related Data Home Medications Medication Instructions Recorded Confirmed Levothyroxine Sodium [Synthroid] 150 mcg PO DAILY 12/03/16 10/18/17 Acetaminophen [Tylenol Extra 1,000 mg PO BID PRN 09/02/17 10/18/17 Strength] ALPRAZolam [Xanax] 0.5 mg PO BID PRN 10/18/17 10/18/17 Nyquil 30 ml PO Q6H PRN 10/18/17 10/18/17 Pnv,Calcium 72/Iron/Folic Acid 1 tab PO DAILY 10/18/17 10/18/17 [ Plus Tablet] Allergies Allergy/AdvReac Type Severity Reaction Status Date / Time morphine Allergy Rash/Hives Verified 10/18/17 19:42 Sulfa (Sulfonamide Allergy Rash/Hives Verified 10/18/17 19:42 Antibiotics) topiramate [From Topamax] Allergy Anaphylaxis Verified 10/18/17 19:42 Penicillins AdvReac Nausea & Verified 10/18/17 19:42 Vomiting Review of Systems ROS Statement: Those systems with pertinent positive or pertinent negative responses have been documented in the HPI. ROS Other: All systems not noted in ROS Statement are negative. Past Medical History Past Medical History: Thyroid Disorder Additional Past Medical History / Comment(s): history of hepatitis A positive but no illness that she is aware of, breast biopsy right side, not cancer History of Any Multi-Drug Resistant Organisms: None Reported Past Surgical History: Orthopedic Surgery Additional Past Surgical History / Comment(s): childhood ear surgery, ACL repair , facial reconstruction on the left side of her face due to a dog bite at age 1 Past Anesthesia/Blood Transfusion Reactions: No Reported Reaction Past Psychological History: ADD/ADHD, Anxiety, Depression Smoking Status: Current every day smoker Past Alcohol Use History: Rare Past Drug Use History: None Reported - Past Family History Mother Family Medical History: No Reported History General Exam Limitations: no limitations General appearance: alert, in no apparent distress, other (This is a well- developed, well-nourished, obese female patient acute distress. Vital signs upon presentation are temperature 99.2F, pulse 104, respirations 18, blood pressure 133/73, pulse ox 98% on room air.) Eye exam: Present: normal appearance, PERRL, EOMI. Absent: scleral icterus, conjunctival injection, periorbital swelling ENT exam: Present: normal exam, normal oropharynx, mucous membranes moist Neck exam: Present: normal inspection. Absent: tenderness, meningismus, lymphadenopathy Respiratory exam: Present: normal lung sounds bilaterally. Absent: respiratory distress, wheezes, rales, rhonchi, stridor Cardiovascular Exam: Present: normal rhythm, tachycardia, normal heart sounds. Absent: systolic murmur, diastolic murmur, rubs, gallop, clicks GI/Abdominal exam: Present: soft, tenderness (Left lower quadrant tenderness), normal bowel sounds. Absent: distended, guarding, rebound, rigid Back exam: Present: normal inspection. Absent: CVA tenderness (R), CVA tenderness (L) Neurological exam: Present: alert, oriented X3, CN II-XII intact Psychiatric exam: Present: normal affect, normal mood Skin exam: Present: warm, dry, intact, normal color. Absent: rash Course Vital Signs 10/18/17 19:19 Temperature 99.2 F Pulse Rate 104 H Respiratory 18 Rate Blood Pressure 133/73 O2 Sat by Pulse 98 Oximetry Medical Decision Making - Lab Data Result diagrams: 10/18/17 20:04 10/18/17 20:04 Lab Results 10/18/17 10/18/17 10/18/17 Range/Units 20:04 20:04 20:04 WBC 10.4 (3.8-10.6) k/uL RBC 5.03 (3.80-5.40) m/uL Hgb 14.7 (11.4-16.0) gm/dL Hct 42.1 (34.0-46.0) % MCV 83.7 (80.0-100.0) fL MCH 29.3 (25.0-35.0) pg MCHC 35.0 (31.0-37.0) g/dL RDW 13.3 (11.5-15.5) % Plt Count 379 (150-450) k/uL Neutrophils % 64 % Lymphocytes % 29 % Monocytes % 3 % Eosinophils % 3 % Basophils % 1 % Neutrophils # 6.6 (1.3-7.7) k/uL Lymphocytes # 3.0 (1.0-4.8) k/uL Monocytes # 0.3 (0-1.0) k/uL Eosinophils # 0.3 (0-0.7) k/uL Basophils # 0.1 (0-0.2) k/uL Sodium 140 (137-145) mmol/L Potassium 3.8 (3.5-5.1) mmol/L Chloride 107 (98-107) mmol/L Carbon Dioxide 21 L (22-30) mmol/L Anion Gap 12 mmol/L BUN 7 (7-17) mg/dL Creatinine 0.50 L (0.52-1.04) mg/dL Est GFR (CKD-EPI)AfAm >90 (>60 ml/min/1.73 sqM) Est GFR (CKD-EPI)NonAf >90 (>60 ml/min/1.73 sqM) Glucose 94 (74-99) mg/dL Calcium 9.6 (8.4-10.2) mg/dL Total Bilirubin 0.4 (0.2-1.3) mg/dL AST 22 (14-36) U/L ALT 14 (9-52) U/L Alkaline Phosphatase 80 (38-126) U/L Total Protein 6.8 (6.3-8.2) g/dL Albumin 3.9 (3.5-5.0) g/dL Heterophile Antibody (Negative) Blood Type A Positive Blood Type Recheck No 10/18/17 Range/Units 20:04 WBC (3.8-10.6) k/uL RBC (3.80-5.40) m/uL Hgb (11.4-16.0) gm/dL Hct (34.0-46.0) % MCV (80.0-100.0) fL MCH (25.0-35.0) pg MCHC (31.0-37.0) g/dL RDW (11.5-15.5) % Plt Count (150-450) k/uL Neutrophils % % Lymphocytes % % Monocytes % % Eosinophils % % Basophils % % Neutrophils # (1.3-7.7) k/uL Lymphocytes # (1.0-4.8) k/uL Monocytes # (0-1.0) k/uL Eosinophils # (0-0.7) k/uL Basophils # (0-0.2) k/uL Sodium (137-145) mmol/L Potassium (3.5-5.1) mmol/L Chloride (98-107) mmol/L Carbon Dioxide (22-30) mmol/L Anion Gap mmol/L BUN (7-17) mg/dL Creatinine (0.52-1.04) mg/dL Est GFR (CKD-EPI)AfAm (>60 ml/min/1.73 sqM) Est GFR (CKD-EPI)NonAf (>60 ml/min/1.73 sqM) Glucose (74-99) mg/dL Calcium (8.4-10.2) mg/dL Total Bilirubin (0.2-1.3) mg/dL AST (14-36) U/L ALT (9-52) U/L Alkaline Phosphatase (38-126) U/L Total Protein (6.3-8.2) g/dL Albumin (3.5-5.0) g/dL Heterophile Antibody Negative (Negative) Blood Type Blood Type Recheck Disposition Clinical Impression: Subchorionic hemorrhage in second trimester, Threatened miscarriage Disposition: HOME SELF-CARE Condition: Good Instructions: Subchorionic Hemorrhage (ED), Threatened Miscarriage (ED) Additional Instructions: Follow-up with your PHARMACEUTICAL REPRESENTATIVE as soon as possible. Return here immediately for any new, worsening, or concerning symptoms. Referrals: Rashard Stock MD [Primary Care Provider] - 1-2 days Time of Disposition: 21:29
[2017-10-18 20:24] LABS: Basophils # (A) 0.1 k/uL (0-0.2); Basophils % (A) 1 %; Eosinophils # (A) 0.3 k/uL (0-0.7); Eosinophils % (A) 3 %; HCT 42.1 % (34.0-46.0); HGB 14.7 gm/dL (11.4-16.0); Lymphocytes % (A) 29 %; MCH 29.3 pg (25.0-35.0); MCV 83.7 fL (80.0-100.0); Mean Platelet Volume 6.5; Monocytes # (A) 0.3 k/uL (0-1.0); Monocytes % (A) 3 %; Neutrophils # (A) 6.6 k/uL (1.3-7.7); Neutrophils % (A) 64 %; Platelet Count 379 k/uL (150-450); RBC 5.03 m/uL (3.80-5.40); RDW 13.3 % (11.5-15.5); WBC 10.4 k/uL (3.8-10.6)
[2017-10-18 20:41] LABS: ALT 14 U/L (9-52); AST 22 U/L (14-36); Albumin 3.9 g/dL (3.5-5.0); Alkaline Phosphatase 80 U/L (38-126); Anion Gap 12 mmol/L; Blood Urea Nitrogen 7 mg/dL (7-17); Calcium 9.6 mg/dL (8.4-10.2); Carbon Dioxide 21 mmol/L (22-30); Chloride 107 mmol/L (98-107); Glucose 94 mg/dL (74-99); Potassium 3.8 mmol/L (3.5-5.1); Sodium 140 mmol/L (137-145); Total Bilirubin 0.4 mg/dL (0.2-1.3); Total Protein 6.8 g/dL (6.3-8.2)
--- NOTE | 2017-10-18 21:05 | US ---
EXAMINATION TYPE: US OB <= 14 wk fetus DATE OF EXAM: 10/18/2017 COMPARISON: 10/12/2017 CLINICAL HISTORY: Pain. spotting, cramping EXAM PERFORMED: Transabdominal (TA) EXAM MEASUREMENTS: GESTATIONAL AGE / DATING Dates by LMP: (12 weeks/0 days) EDC: 05/02/2018 Dates by Current Scan: (12 weeks/4 days) EDC: 04/28/2018 MATERNAL ANATOMY Uterus: 13.3 x 9.7 x 7.5 cm Right Ovary: 2.6 x 1.6 x 1.3 cm Left Ovary: 3.2 x 2.1 x 2.0 cm Post CDS / Adnexa: no free fluid Presence of free fluid: no Presence of corpus luteal cyst: left ovarian hypoechoic lesion - 1.7 x 1.6 x 1.6 cm Presence of subchorionic bleed: Left hypoechoic lesion seen adjacent to GS - 1.9 x 0.8 x 0.5 cm GESTATION / SURVEY CRL: 6.0 cm (12 weeks/4 days) MSD: Seen, not measured Yolk Sac (normal less than 6mm): Not visualized Heart Rate: 165 bpm Rhythm: Normal IUP: Viable IUP Date of LMP: 07/26/2017, Beta HcG (if available): Not available at this time Single live IUP measuring 12 weeks 4 days. IMPRESSION: Single live intrauterine with a sonographic age of 12 weeks 4 days an estimated date of del nahed of 04/28/2019, concordant with menstrual age. New subchorionic hemorrhage is seen measuring 1.9 x 0.8 x 0.5 cm, less than 25% of the gestational sac diameter.
[2017-10-18 21:38] LABS: HCG,Quantitative Serum 43994.3 mIU/mL
[2017-10-18 21:58] VITALS: BP 110/53; PULSE 81; TEMP 97.4
== END 2017-10-18 21:58 | disposition home or self-care (01) ==
LOC: EC 19:05
DX: O20.0 Threatened abortion (principal); O99.281 Endocrine, nutritional and metabolic diseases complicating pregnancy, first trimester; E07.9 Disorder of thyroid, unspecified; O99.331 Smoking (tobacco) complicating pregnancy, first trimester; F17.200 Nicotine dependence, unspecified, uncomplicated; Z3A.12 12 weeks gestation of pregnancy; Z79.899 Other long term (current) drug therapy; Z88.0 Allergy status to penicillin; Z88.2 Allergy status to sulfonamides; Z88.5 Allergy status to narcotic agent; Z88.8 Allergy status to other drugs, medicaments and biological substances
CPT/HCPCS: 36415; 76801; 80053; 81003; 84702; 85025; 86308; 86900; 86901; 87081; 87086; 87430; 87502; 96360; 96361; 99283; 99284

== ENCOUNTER 2018-01-10 12:39 | Outpatient (CLI) | payer OTHER ==
[2018-01-10 13:13] VITALS: BP 106/56; PULSE 93; RESP 16; TEMP 97.6
[2018-01-10] MEDS ORDERED: DOCUSATE 100 MG CAP PO STA (13:36)
[2018-01-10 13:56] LABS: Amorphous Sediment,Urine Rare /hpf; Appearance,Urine Cloudy (Clear); Bilirubin,Urine Negative (Negative); Blood,Urine Negative (Negative); Color,Urine Yellow; Glucose,Urine (UA) Negative (Negative); Ketones,Urine Negative (Negative); Leukocyte Esterase,Urine Small (Negative); Mucus,Urine Rare /hpf; Nitrite,Urine Negative (Negative); PH, Urine 6.5 (5.0-8.0); Protein,Urine Negative (Negative); RBC,Urine <1 /hpf (0-5); Specific Gravity,Urine 1.017 (1.001-1.035); Squamous Epithelial Cell,Urine 16 /hpf (0-4); Urobilinogen,Urine <2.0 mg/dL (<2.0); WBC,Urine 14 /hpf (0-5)
[2018-01-10 14:29] LABS: Basophils % (A) 0 %; Eosinophils # (A) 0.2 k/uL (0-0.7); Eosinophils % (A) 1 %; HCT 36.4 % (34.0-46.0); HGB 12.4 gm/dL (11.4-16.0); Lymphocytes # (A) 2.7 k/uL (1.0-4.8); Lymphocytes % (A) 24 %; MCH 29.9 pg (25.0-35.0); MCHC 34.2 g/dL (31.0-37.0); MCV 87.4 fL (80.0-100.0); Mean Platelet Volume 6.6; Monocytes # (A) 0.4 k/uL (0-1.0); Monocytes % (A) 3 %; Neutrophils # (A) 7.8 k/uL (1.3-7.7); Neutrophils % (A) 70 %; Platelet Count 326 k/uL (150-450); RBC 4.16 m/uL (3.80-5.40); RDW 13.6 % (11.5-15.5); WBC 11.1 k/uL (3.8-10.6)
[2018-01-10 14:38] LABS: T4, Free (Free Thyroxine) 0.93 ng/dL (0.78-2.19)
--- NOTE | 2018-01-19 16:52 | P.MSEPDOC ---
Presenting Problems - Arrival Data Date of Arrival on Unit: 01/10/18 Time of Arrival on Unit: 12:39 Mode of Transport: Ambulatory - Complaint OB-Reason for Admission/Chief Complaint: Other Comment: Back pain and constipation Medical History - Information : 3 Para: 2 Term: 2 : 0 Abortions: Spontaneous or Elective: 0 Number of Living Children: 2 - Gestational Age Gestational Age by YUMI (wks/days): 24 Weeks and 5 Days - History Complications: Smoker Review of Systems - Review of Systems Constitutional: No problems Breast: No problems ENT: No problems Cardiovascular: No problems Respiratory: No problems Gastrointestinal: No problems Genitourinary: No problems Musculoskeletal: No problems Neurological: No problems Skin: No problems Comment: acl reconstruction rt knee Vital Signs - Temperature Temperature: 97.6 F Temperature Source: Temporal Artery Scan - Pulse Right Brachial Pulse Rate: 93 Pulse Assessment Method: Automatic Cuff - Respirations Respiratory Rate: 16 Oxygen Delivery Method: Room Air O2 Sat by Pulse Oximetry: 97 - Blood Pressure Right Arm Blood Pressure: 106/56 Blood Pressure Mean: 72 Blood Pressure Source: Automatic Cuff Medical Screen Scoring (Pre) - Pain Assessment Pain Location and Character: Lower, Back Pain Scale Used: Numeric (1 - 10) Pain Intensity: 6 Pain Description: *Chronic, Pinching Pain Behavior: Vocalization Pain Aggravating Factors: Activity, Changing Position, Exercise, Lifting, Sitting, Standing, Walking Non-Pharmacological Interventions: Darkened Room, Distraction, Reduce Environmental Stimuli, Relaxation Technique - Maternal Trauma Maternal Trauma: N/A - Assessment Baseline FHR: 156 Heart Rate - NICHD Category: Category I (Normal) = 0 - Total Score Total Score (Pre): 0 Physician Notification (Pre) - Physician Notified Physician Notified Date: 01/10/18 Physician Notified Time: 13:20 Physician/Practitioner Notifed:: Dr Daley New Order Received: Yes - Notification Comment Comment: Orders for CBC, TSH, Urine, freeT3, and FreeT4. Order for colace to be given Disposition - Disposition Discharge Date: 01/10/18 Discharge Time: 15:10 I agree with the RN Medical Screening Exam: Yes Risk & Benefit of care provided described in d/c instruction: Yes Diagnosis: RELATED CONDITIONS, UNSPECIFIED, SECOND TRIMESTER
== END 2018-01-10 15:20 | disposition home or self-care (01) ==
LOC: FBPOP 12:39
PROVIDERS: ATTEND Obstetrics & Gynecology
DX: O26.92 Pregnancy related conditions, unspecified, second trimester (principal); O99.332 Smoking (tobacco) complicating pregnancy, second trimester; Z3A.24 24 weeks gestation of pregnancy
CPT/HCPCS: 84439; 84481; 84443; 85025; 81001; G0463; 99213

== ENCOUNTER 2018-03-01 12:23 | Outpatient (CLI) | payer OTHER ==
[2018-03-01 13:18] LABS: Amorphous Sediment,Urine Few /hpf; Appearance,Urine Cloudy (Clear); Bacteria,Urine Rare /hpf; Bilirubin,Urine Negative (Negative); Blood,Urine Negative (Negative); Color,Urine Yellow; Glucose,Urine (UA) Negative (Negative); Ketones,Urine Negative (Negative); Leukocyte Esterase,Urine Negative (Negative); Mucus,Urine Rare /hpf; Nitrite,Urine Negative (Negative); Protein,Urine Negative (Negative); Specific Gravity,Urine 1.012 (1.001-1.035); Squamous Epithelial Cell,Urine 3 /hpf (0-4); Urobilinogen,Urine <2.0 mg/dL (<2.0); WBC,Urine 1 /hpf (0-5)
[2018-03-01 13:43] VITALS: BP 115/68; PULSE 99
[2018-03-01 13:45] VITALS: RESP 16; TEMP 97.7
--- NOTE | 2018-03-05 07:17 | P.MSEPDOC ---
Presenting Problems - Arrival Data Date of Arrival on Unit: 03/01/18 Time of Arrival on Unit: 12:19 Mode of Transport: Ambulatory - Complaint OB-Reason for Admission/Chief Complaint: Observation/Evaluation Comment: Pressure x 2 days Medical History - Information : 3 Para: 2 Term: 2 : 0 Abortions: Spontaneous or Elective: 0 Number of Living Children: 2 - Gestational Age Gestational Age by YUMI (wks/days): 31 Weeks and 6 Days Review of Systems - Review of Systems Constitutional: No problems Breast: No problems ENT: No problems Cardiovascular: No problems Respiratory: No problems Gastrointestinal: No problems Genitourinary: No problems Musculoskeletal: No problems Neurological: No problems Skin: No problems Vital Signs - Temperature Temperature: 97.7 F Temperature Source: Oral - Pulse Right Sitting Brachial Pulse Rate: 99 Pulse Assessment Method: Automatic Cuff - Respirations Respiratory Rate: 16 Oxygen Delivery Method: Room Air - Blood Pressure Right Arm Sitting Blood Pressure: 115/68 Blood Pressure Mean: 83 Blood Pressure Source: Automatic Cuff Medical Screen Scoring (Pre) - Cervical Exam Dilation: 0 cm = 0 Membranes: Intact - Uterine Contractions Frequency: N/A Duration: N/A Intensity: N/A - Maternal Vital Signs Maternal Temperature: N/A Maternal Blood Pressure: N/A Signs of Preeclampsia: N/A Maternal Respirations: N/A - Total Score Total Score (Pre): 0 - Level of Risk Level of Risk: Low (0-5) Physician Notification (Pre) - Physician Notified Physician Notified Date: 03/01/18 Physician Notified Time: 13:25 Physician/Practitioner Notifed:: Farhad Spoke With: Farhad New Order Received: Yes - Notification Comment Comment: Spk c\Dr. Llamas, advsd SVE and results of UA. States pt may be d/c, to follow up at next scheduled appt. Disposition - Disposition OB Disposition: Discharge to home, Written follow up instructions reviewed Discharge Date: 03/01/18 Discharge Time: 13:30 I agree with the RN Medical Screening Exam: Yes Risk & Benefit of care provided described in d/c instruction: Yes Diagnosis: FALSE LABOR BEFORE 37 COMPLETED WEEKS OF GEST, THIRD TRI
== END 2018-03-01 13:30 | disposition home or self-care (01) ==
LOC: FBPOP 12:23
PROVIDERS: ATTEND Obstetrics & Gynecology
DX: O47.03 False labor before 37 completed weeks of gestation, third trimester (principal); Z3A.31 31 weeks gestation of pregnancy
CPT/HCPCS: 59025; 81001; G0463; 99213

== ENCOUNTER → 2018-03-23 | Outpatient (CLI) | payer OTHER ==
[2018-03-23 14:58] LABS: T4, Free (Free Thyroxine) 0.81 ng/dL (0.78-2.19)
== END | disposition home or self-care (01) ==
LOC: LABWHC1 13:43
PROVIDERS: ATTEND Family Medicine
DX: E03.9 Hypothyroidism, unspecified (principal); Z79.899 Other long term (current) drug therapy
CPT/HCPCS: 36415; 84439; 84443; 84481

== ENCOUNTER 2018-04-26 06:13 | Inpatient (IN) | payer OTHER ==
[2018-04-26] MEDS ORDERED: OXYTOCIN 10 UNIT/ML 1 ML VIAL IM PRN (06:28)
[2018-04-26] MEDS ORDERED: TERBUTALINE 1 MG/ML VIAL SQ PRN (06:28)
[2018-04-26] MEDS ORDERED: METHYLERGONOVINE 0.2 MG/ML 1 ML AMP IM PRN (06:28)
[2018-04-26] MEDS ORDERED: LIDOCAINE 0.5% (PF) 5 MG/ML (50 ML SDV) SQ PRN (06:28)
[2018-04-26] MEDS ORDERED: CARBOPROST TROMETHAMINE 250 MCG/ML 1 ML AMP IM PRN (06:28)
[2018-04-26] MEDS ORDERED: LACTATED RINGERS 1,000 ML IV SCH (06:30)
[2018-04-26] MEDS ORDERED: OXYTOCIN 20 UNITS/1000 ML NS 1,000 ML IV SCH ×2 (06:30→22:15)
[2018-04-26 06:35] VITALS: BMI 46.4
[2018-04-26] MEDS: LACTATED RINGERS 1,000 ML IV SCH ×2 (06:37→12:33)
[2018-04-26 06:52] LABS: Basophils % (A) 0 %; Eosinophils # (A) 0.1 k/uL (0-0.7); Eosinophils % (A) 1 %; HCT 36.7 % (34.0-46.0); HGB 11.7 gm/dL (11.4-16.0); Lymphocytes # (A) 2.7 k/uL (1.0-4.8); Lymphocytes % (A) 28 %; MCH 27.2 pg (25.0-35.0); MCHC 31.8 g/dL (31.0-37.0); MCV 85.5 fL (80.0-100.0); Mean Platelet Volume 6.3; Monocytes # (A) 0.5 k/uL (0-1.0); Monocytes % (A) 5 %; Neutrophils # (A) 6.3 k/uL (1.3-7.7); Neutrophils % (A) 65 %; Platelet Count 341 k/uL (150-450); RDW 14.9 % (11.5-15.5); WBC 9.7 k/uL (3.8-10.6)
--- NOTE | 2018-04-26 08:07 | P.HPOB ---
History of Present Illness H&P Date: 04/26/18 Chief Complaint: Induction of Labor 22 year old presents at 39 weeks 1 day for induction of labor. Her cervix is 2-3 cm dilated, 80% effaced, and -2 station. She is jonny irregularly. heart tones 130-135 with moderate variability and reactive. Review of Systems All systems: negative Constitutional: Denies chills, Denies fever Eyes: denies blurred vision, denies pain Ears, nose, mouth and throat: Denies headache, Denies sore throat Cardiovascular: Denies chest pain, Denies shortness of breath Respiratory: Denies cough Gastrointestinal: Denies abdominal pain, Denies diarrhea, Denies nausea, Denies vomiting Genitourinary: Denies dysuria, Denies hematuria Musculoskeletal: Denies myalgias Integumentary: Denies pruritus, Denies rash Neurological: Denies numbness, Denies weakness Psychiatric: Denies anxiety, Denies depression Endocrine: Denies fatigue, Denies weight change Past Medical History Past Medical History: Thyroid Disorder Additional Past Medical History / Comment(s): Exposure to hep A, but no illness that she is aware of, breast biopsy right side, not cancer. Subjective history : She's had 2 previous vaginal deliveries and 1 miscarriage. This is her fourth . She's had care with me since 9 weeks gestation. Blood type A+, and was negative, rubella immune, RPR nonreactive, hepatitis B-, HIV nonreactive, toxo plus was negative, negative quad screen, normal anatomy ultrasound. GBS negative. History of Any Multi-Drug Resistant Organisms: None Reported Past Surgical History: Orthopedic Surgery Additional Past Surgical History / Comment(s): childhood ear surgery, ACL repair , facial reconstruction on the left side of her face due to a dog bite at age 1 Past Anesthesia/Blood Transfusion Reactions: No Reported Reaction Past Psychological History: ADD/ADHD, Anxiety, Depression Smoking Status: Current every day smoker Past Alcohol Use History: None Reported Past Drug Use History: None Reported - Past Family History Mother Family Medical History: No Reported History Medications and Allergies Home Medications Medication Instructions Recorded Confirmed Type Levothyroxine Sodium [Synthroid] 150 mcg PO DAILY 12/03/16 04/26/18 History Pnv,Calcium 72/Iron/Folic Acid 1 tab PO DAILY 10/18/17 04/26/18 History [ Plus Tablet] Allergies Allergy/AdvReac Type Severity Reaction Status Date / Time morphine Allergy Rash/Hives Verified 04/26/18 06:27 Sulfa (Sulfonamide Allergy Rash/Hives Verified 04/26/18 06:27 Antibiotics) topiramate [From Topamax] Allergy Anaphylaxis Verified 04/26/18 06:27 Penicillins AdvReac Unknown Verified 04/26/18 06:27 Exam Osteopathic Statement: *. No significant issues noted on an osteopathic structural exam other than those noted in the History and Physical/Consult. Vital Signs Temp Pulse Resp BP Pulse Ox 04/26/18 06:26 98.5 F 87 16 116/62 96 Intake and Output 04/25/18 04/26/18 04/26/18 22:59 06:59 14:59 Other: Weight 118.841 kg Heart: Regular rate and rhythm Lungs: Clear to auscultation bilaterally Abdomen: Soft, nontender Extremities: Negative Homans sign Results Result Diagrams: 04/26/18 06:35 Assessment and Plan (1) Normal labor Current Visit: Yes Status: Acute Code(s): O80 - ENCOUNTER FOR FULL-TERM UNCOMPLICATED DELIVERY; Z37.9 - OUTCOME OF DELIVERY, UNSPECIFIED SNOMED Code(s ): 45078229 Plan: 1. Induction of labor with amniotomy and Pitocin 2. Anticipate normal vaginal delivery
[2018-04-26] MEDS ORDERED: ROPIVACAINE 100 MG, fentaNYL (PF) 200 MCG in SODIUM CHLORIDE 0.9% 76 ML EPIDURAL ONE (12:56)
[2018-04-26] MEDS ORDERED: LANOLIN CREAM 5 GM TUBE TOPICAL PRN (22:06)
[2018-04-26] MEDS ORDERED: HYDROcodone/APAP 5-325MG 1 EACH TAB PO PRN (22:06)
[2018-04-26] MEDS ORDERED: ZOLPIDEM 5 MG TAB PO PRN (22:06)
[2018-04-26] MEDS ORDERED: SIMETHICONE 80 MG CHEWABLE PO PRN (22:06)
[2018-04-26] MEDS ORDERED: HYDROCORTISONE 2.5% RECTAL CREAM 30 GM TUBE RECTAL PRN (22:06)
[2018-04-26] MEDS ORDERED: diphenhydrAMINE 50 MG CAP PO PRN (22:06)
[2018-04-26] MEDS ORDERED: diphenhydrAMINE 50 MG/ML 1 ML VIAL IVP PRN ×2 (22:06)
[2018-04-26] MEDS ORDERED: BENZOCAINE/MENTHOL SPRAY 1 GM/SPRAY AEROSOL TOPICAL PRN (22:06)
[2018-04-26] MEDS ORDERED: WITCH HAZEL 1 EACH MED..PAD TOPICAL PRN (22:06)
[2018-04-26] MEDS ORDERED: diphenhydrAMINE 25 MG CAP PO PRN (22:06)
--- NOTE | 2018-04-26 22:29 | P.PROBDLV ---
Vaginal Delivery Note - . Vaginal Delivery Note: 22-year-old presents at 39 weeks and 1 day for induction of labor. Her cervix was 2-3 cm dilated, 80% effaced, and -2 station. She is jonny irregularly. heart tones 130-135 with moderate variability and reactive. Amniotomy was performed at 7:48 AM clear fluid noted. Pitocin was also started. When the patient was uncomfortable she did get an epidural. She progressed slowly throughout the day. When she was complete, she pushed and delivered a viable female over intact perineum under epidural anesthesia at 195. Head delivered OA, anterior shoulder delivered gentle downward guidance followed by posterior shoulder and rest of body. Nose and mouth bulb suctioned, cord clamped and cut, placed mother's abdomen. Apgars 9, 9, weight 7 pounds 1.4 ounces. Placenta delivered spontaneously, intact with three -vessel cord at 2001. Vagina, cervix, and perineum inspected. First-degree midline laceration was noted. Estimated blood loss 200 mL. Mother and baby in stable condition.
[2018-04-27] MEDS: IBUPROFEN 600 MG TAB PO PRN ×3 (00:14→20:57)
[2018-04-27] MEDS: ACETAMINOPHEN TAB 325 MG TAB PO PRN ×3 (04:39→15:22)
[2018-04-27] MEDS: SENNOSIDES-DOCUSATE SODIUM 1 EACH TAB PO SCH ×2 (06:12→20:57)
--- NOTE | 2018-04-27 08:36 | P.DS ---
Providers Date of admission: 04/26/18 06:13 Expected date of discharge: 04/27/18 Attending physician: Chana Llamas Primary care physician: Rashard Stock - Discharge Diagnosis(es) (1) Normal labor Current Visit: Yes Status: Resolved (2) Normal vaginal delivery Current Visit: Yes Status: Acute Hospital Course: Patient presented for induction of labor. She underwent normal vaginal delivery. Her course was uncomplicated. She'll be discharged home day #1 in stable condition to follow-up with me in 6 weeks. Plan - Discharge Summary New Discharge Prescriptions: New Ibuprofen [Motrin] 600 mg PO Q6HR PRN #30 tab PRN Reason: Mild Pain Or Fever >= 100.5 No Action Levothyroxine Sodium [Synthroid] 150 mcg PO DAILY Pnv,Calcium 72/Iron/Folic Acid [ Plus Tablet] 1 tab PO DAILY Discharge Medication List Levothyroxine Sodium [Synthroid] 150 mcg PO DAILY 12/03/16 [History] Pnv,Calcium 72/Iron/Folic Acid [ Plus Tablet] 1 tab PO DAILY 10/18/17 [ History] Ibuprofen [Motrin] 600 mg PO Q6HR PRN #30 tab 04/27/18 [Rx] Follow up Appointment(s)/Referral(s): Chana Llamas DO [Doctor of Osteopathic Medicine] - 6 Weeks Discharge Disposition: HOME SELF-CARE
[2018-04-27 12:28] VITALS: RESP 18
[2018-04-27 15:57] VITALS: BP 127/69; PULSE 74; TEMP 98.2
== END 2018-04-27 21:00 | disposition home or self-care (01) | DRG 775 ==
LOC: 4FBP 06:13
PROVIDERS: ADMIT Obstetrics & Gynecology; ATTEND Obstetrics & Gynecology
PROC: 10E0XZZ Delivery of Products of Conception, External Approach (ICD-10-PCS; principal; 2018-04-26)
PROC: 0HQ9XZZ Repair Perineum Skin, External Approach (ICD-10-PCS; 2018-04-26)
PROC: 10907ZC Drainage of Amniotic Fluid, Therapeutic from Products of Conception, Via Natural or Artificial Opening (ICD-10-PCS; 2018-04-26)
PROC: 3E033VJ Introduction of Other Hormone into Peripheral Vein, Percutaneous Approach (ICD-10-PCS; 2018-04-26)
PROC: 00HU33Z Insertion of Infusion Device into Spinal Canal, Percutaneous Approach (ICD-10-PCS; 2018-04-26)
PROC: 3E0R3BZ Introduction of Anesthetic Agent into Spinal Canal, Percutaneous Approach (ICD-10-PCS; 2018-04-26)
DX: O70.0 First degree perineal laceration during delivery (principal); O99.284 Endocrine, nutritional and metabolic diseases complicating childbirth; E07.9 Disorder of thyroid, unspecified; Z37.0 Single live birth; O99.334 Smoking (tobacco) complicating childbirth; F17.200 Nicotine dependence, unspecified, uncomplicated; Z71.6 Tobacco abuse counseling; Z3A.39 39 weeks gestation of pregnancy; Z79.890 Hormone replacement therapy; Z79.899 Other long term (current) drug therapy; Z86.59 Personal history of other mental and behavioral disorders; Z20.5 Contact with and (suspected) exposure to viral hepatitis; Z88.5 Allergy status to narcotic agent; Z88.0 Allergy status to penicillin; Z88.2 Allergy status to sulfonamides; Z88.8 Allergy status to other drugs, medicaments and biological substances
CPT/HCPCS: 85025

== ENCOUNTER 2018-06-03 23:33 | Emergency (ER) | payer OTHER ==
[2018-06-03 23:47] VITALS: BP 118/68; PULSE 107; RESP 18; TEMP 98.3
[2018-06-04] MEDS ORDERED: SODIUM CHLORIDE 0.9% 500 ML 500 ML IV ONE (02:28)
[2018-06-04] MEDS ORDERED: KETOROLAC 30 MG/ML 1 ML VIAL IVP STA (02:30)
[2018-06-04] MEDS ORDERED: ONDANSETRON 4 MG/2 ML VIAL IVP STA (02:30)
[2018-06-04 03:04] LABS: Basophils # (A) 0.1 k/uL (0-0.2); Basophils % (A) 1 %; Eosinophils # (A) 0.9 k/uL (0-0.7); Eosinophils % (A) 7 %; HCT 44.1 % (34.0-46.0); HGB 14.3 gm/dL (11.4-16.0); Lymphocytes # (A) 5.2 k/uL (1.0-4.8); Lymphocytes % (A) 39 %; MCH 26.8 pg (25.0-35.0); MCHC 32.3 g/dL (31.0-37.0); Mean Platelet Volume 6.4; Monocytes # (A) 0.4 k/uL (0-1.0); Monocytes % (A) 3 %; Neutrophils # (A) 6.5 k/uL (1.3-7.7); Neutrophils % (A) 49 %; Platelet Count 424 k/uL (150-450); RBC 5.32 m/uL (3.80-5.40); RDW 14.1 % (11.5-15.5); WBC 13.4 k/uL (3.8-10.6)
[2018-06-04 03:11] LABS: ALT 39 U/L (9-52); AST 23 U/L (14-36); Albumin 4.2 g/dL (3.5-5.0); Alkaline Phosphatase 106 U/L (38-126); Amylase 55 U/L (30-110); Anion Gap 10 mmol/L; Blood Urea Nitrogen 12 mg/dL (7-17); Calcium 9.7 mg/dL (8.4-10.2); Carbon Dioxide 22 mmol/L (22-30); Chloride 107 mmol/L (98-107); Glucose 81 mg/dL (74-99); Lipase 87 U/L (23-300); Potassium 4.3 mmol/L (3.5-5.1); Sodium 139 mmol/L (137-145); Total Bilirubin 0.3 mg/dL (0.2-1.3); Total Protein 7.2 g/dL (6.3-8.2)
[2018-06-04 03:23] LABS: INR 0.9 (<1.2); Partial Thromboplastin Time 23.7 sec (22.0-30.0); Prothrombin Time 9.4 sec (9.0-12.0)
[2018-06-04 03:42] LABS: Appearance,Urine Cloudy (Clear); Bilirubin,Urine Negative (Negative); Blood,Urine Large (Negative); Color,Urine Red; Glucose,Urine (UA) Negative (Negative); Ketones,Urine 1+ (Negative); Leukocyte Esterase,Urine Moderate (Negative); Mucus,Urine Few /hpf; Nitrite,Urine Negative (Negative); PH, Urine 5.5 (5.0-8.0); Protein,Urine 1+ (Negative); RBC,Urine >182 /hpf (0-5); Urobilinogen,Urine <2.0 mg/dL (<2.0)
[2018-06-04 03:44] LABS: Specific Gravity,Urine 1.014 (1.001-1.035)
--- NOTE | 2018-06-04 04:01 | ED ---
General Adult HPI - General Chief complaint: Vaginal Bleeding Stated complaint: abd pain,vaginal bleeding Time Seen by Provider: 06/04/18 02:02 Source: patient Mode of arrival: ambulatory Limitations: no limitations - History of Present Illness Initial comments: 22-year-old female patient presents to the emergency department today for complaints of right upper quadrant abdominal pain and heavy vaginal bleeding. Patient states that she is 6 weeks . She did bleed initially for the first 4 weeks then had cessation of bleeding for 2 weeks. Patient states that the bleeding started again three days ago. States that she has passed clots the size of quarters. She is having mild suprapubic cramping. States that she has been changing her pad each hour. Patient states that she is feeling weak but denies any dizziness, shortness of breath, or chest discomfort. Patient is not breast-feeding at this time. She is . She denies any fevers or chills with this. Patient states that she is experiencing right upper quadrant discomfort. States this has been going on for the last several days, she did have an evaluation for this at [facility] yesterday. States she had an ultrasound of the gallbladder which showed that her gallbladder was contracted. States that she has been nauseated throughout the day today. She denies any vomiting. Denies any diarrhea. Patient denies any recent rash, shortness breath, chest pain, back pain, numbness, tingling, dysuria, urinary urgency, urinary frequency, headache, visual changes, or any other complaints. - Related Data Home Medications Medication Instructions Recorded Confirmed Levothyroxine Sodium [Synthroid] 150 mcg PO DAILY 12/03/16 04/26/18 Pnv,Calcium 72/Iron/Folic Acid 1 tab PO DAILY 10/18/17 04/26/18 [ Plus Tablet] Previous Rx's Medication Instructions Recorded Ibuprofen [Motrin] 600 mg PO Q6HR PRN #30 tab 04/27/18 Allergies Allergy/AdvReac Type Severity Reaction Status Date / Time morphine Allergy Rash/Hives Verified 06/03/18 23:47 Sulfa (Sulfonamide Allergy Rash/Hives Verified 06/03/18 23:47 Antibiotics) topiramate [From Topamax] Allergy Anaphylaxis Verified 06/03/18 23:47 Penicillins AdvReac Unknown Verified 06/03/18 23:47 Review of Systems ROS Statement: Those systems with pertinent positive or pertinent negative responses have been documented in the HPI. ROS Other: All systems not noted in ROS Statement are negative. Past Medical History Past Medical History: Thyroid Disorder Additional Past Medical History / Comment(s): breast biopsy right side, not cancer. Subjective history: She's had 2 previous vaginal deliveries and 1 miscarriage. This is her fourth . Blood type A+, and was negative, rubella immune, RPR nonreactive, hepatitis B-, HIV nonreactive, toxo plus was negative, negative quad screen, normal anatomy ultrasound. GBS negative. History of Any Multi-Drug Resistant Organisms: None Reported Past Surgical History: Orthopedic Surgery Additional Past Surgical History / Comment(s): childhood ear surgery, ACL repair , facial reconstruction on the left side of her face due to a dog bite at age 1 Past Anesthesia/Blood Transfusion Reactions: No Reported Reaction Past Psychological History: ADD/ADHD, Anxiety, Depression Smoking Status: Current every day smoker Past Alcohol Use History: Rare Past Drug Use History: Marijuana - Past Family History Mother Family Medical History: No Reported History General Exam Limitations: no limitations General appearance: alert, in no apparent distress, other (This is a well- developed, well-nourished adult female patient in no acute distress. Vital signs upon presentation are temperature 98.3F, pulse 107, respirations 18, blood pressure 118/68, pulse ox 97% on room air.) Eye exam: Present: normal appearance, PERRL, EOMI. Absent: scleral icterus, conjunctival injection, periorbital swelling ENT exam: Present: normal exam, normal oropharynx, mucous membranes moist Respiratory exam: Present: normal lung sounds bilaterally. Absent: respiratory distress, wheezes, rales, rhonchi, stridor Cardiovascular Exam: Present: regular rate, normal rhythm, normal heart sounds. Absent: systolic murmur, diastolic murmur, rubs, gallop, clicks GI/Abdominal exam: Present: soft, normal bowel sounds, other (Negative ibrahim's sign). Absent: distended, tenderness, guarding, rebound, rigid Neurological exam: Present: alert, oriented X3, CN II-XII intact Psychiatric exam: Present: normal affect, normal mood Skin exam: Present: warm, dry, intact, normal color. Absent: rash Course Vital Signs 06/03/18 23:41 Temperature 98.3 F Pulse Rate 107 H Respiratory 18 Rate Blood Pressure 118/68 O2 Sat by Pulse 97 Oximetry Medical Decision Making - Medical Decision Making 22-year-old female patient presented to the emergency department today for evaluation of right upper quadrant abdominal pain, increased vaginal bleeding, and superpubic cramping. Physical examination was relatively unremarkable, abdomen soft and nontender. Negative Ibrahim sign. Labs reviewed and did reveal elevated white blood cell count at 13.6. Hemoglobin was within normal limits. Vital signs remained stable. I did recommend performing a pelvic ultrasound as well as pelvic exam however patient's family was upset that her visit was taking too long and he refused this testing. I did discuss risks of refusal. Patient verbalized understanding and continued with her plan to leave. She did sign AMA form. She was given starter pack of Tylenol for codeine for pain control. She is instructed take ibuprofen. She is instructed follow-up with her ENERGY SALES CONSULTANT for recheck as soon as possible. She is instructed to follow-up with her primary care physician for further evaluation of her gallbladder as she did have abnormal test results at [facility] emergency Department yesterday. Return parameters were discussed in detail. She verbalized understanding. - Lab Data Result diagrams: 06/04/18 02:00 06/04/18 02:00 Lab Results 06/04/18 06/04/18 06/04/18 Range/Units 02:00 02:00 02:00 WBC 13.4 H (3.8-10.6) k/uL RBC 5.32 (3.80-5.40) m/uL Hgb 14.3 (11.4-16.0) gm/dL Hct 44.1 (34.0-46.0) % MCV 83.0 (80.0-100.0) fL MCH 26.8 (25.0-35.0) pg MCHC 32.3 (31.0-37.0) g/dL RDW 14.1 (11.5-15.5) % Plt Count 424 (150-450) k/uL Neutrophils % 49 % Lymphocytes % 39 % Monocytes % 3 % Eosinophils % 7 % Basophils % 1 % Neutrophils # 6.5 (1.3-7.7) k/uL Lymphocytes # 5.2 H (1.0-4.8) k/uL Monocytes # 0.4 (0-1.0) k/uL Eosinophils # 0.9 H (0-0.7) k/uL Basophils # 0.1 (0-0.2) k/uL PT 9.4 (9.0-12.0) sec INR 0.9 (<1.2) APTT 23.7 (22.0-30.0) sec Sodium 139 (137-145) mmol/L Potassium 4.3 (3.5-5.1) mmol/L Chloride 107 (98-107) mmol/L Carbon Dioxide 22 (22-30) mmol/L Anion Gap 10 mmol/L BUN 12 (7-17) mg/dL Creatinine 0.67 (0.52-1.04) mg/dL Est GFR (CKD-EPI)AfAm >90 (>60 ml/min/1.73 sqM) Est GFR (CKD-EPI)NonAf >90 (>60 ml/min/1.73 sqM) Glucose 81 (74-99) mg/dL Calcium 9.7 (8.4-10.2) mg/dL Total Bilirubin 0.3 (0.2-1.3) mg/dL AST 23 (14-36) U/L ALT 39 (9-52) U/L Alkaline Phosphatase 106 (38-126) U/L Total Protein 7.2 (6.3-8.2) g/dL Albumin 4.2 (3.5-5.0) g/dL Amylase 55 (30-110) U/L Lipase 87 (23-300) U/L Urine Color Urine Appearance (Clear) Urine pH (5.0-8.0) Ur Specific [place] (1.001-1.035) Urine Protein (Negative) Urine Glucose (UA) (Negative) Urine Ketones (Negative) Urine Blood (Negative) Urine Nitrite (Negative) Urine Bilirubin (Negative) Urine Urobilinogen (<2.0) mg/dL Ur Leukocyte Esterase (Negative) Urine RBC (0-5) /hpf Urine Mucus (None) /hpf Urine HCG, Qual (Not Detectd) 06/04/18 06/04/18 Range/Units 03:02 03:02 WBC (3.8-10.6) k/uL RBC (3.80-5.40) m/uL Hgb (11.4-16.0) gm/dL Hct (34.0-46.0) % MCV (80.0-100.0) fL MCH (25.0-35.0) pg MCHC (31.0-37.0) g/dL RDW (11.5-15.5) % Plt Count (150-450) k/uL Neutrophils % % Lymphocytes % % Monocytes % % Eosinophils % % Basophils % % Neutrophils # (1.3-7.7) k/uL Lymphocytes # (1.0-4.8) k/uL Monocytes # (0-1.0) k/uL Eosinophils # (0-0.7) k/uL Basophils # (0-0.2) k/uL PT (9.0-12.0) sec INR (<1.2) APTT (22.0-30.0) sec Sodium (137-145) mmol/L Potassium (3.5-5.1) mmol/L Chloride (98-107) mmol/L Carbon Dioxide (22-30) mmol/L Anion Gap mmol/L BUN (7-17) mg/dL Creatinine (0.52-1.04) mg/dL Est GFR (CKD-EPI)AfAm (>60 ml/min/1.73 sqM) Est GFR (CKD-EPI)NonAf (>60 ml/min/1.73 sqM) Glucose (74-99) mg/dL Calcium (8.4-10.2) mg/dL Total Bilirubin (0.2-1.3) mg/dL AST (14-36) U/L ALT (9-52) U/L Alkaline Phosphatase (38-126) U/L Total Protein (6.3-8.2) g/dL Albumin (3.5-5.0) g/dL Amylase (30-110) U/L Lipase (23-300) U/L Urine Color Red Urine Appearance Cloudy H (Clear) Urine pH 5.5 (5.0-8.0) Ur Specific [place] 1.014 (1.001-1.035) Urine Protein 1+ H (Negative) Urine Glucose (UA) Negative (Negative) Urine Ketones 1+ H (Negative) Urine Blood Large H (Negative) Urine Nitrite Negative (Negative) Urine Bilirubin Negative (Negative) Urine Urobilinogen <2.0 (<2.0) mg/dL Ur Leukocyte Esterase Moderate H (Negative) Urine RBC >182 H (0-5) /hpf Urine Mucus Few H (None) /hpf Urine HCG, Qual Not Detected (Not Detectd) Disposition Clinical Impression: Dysfunctional uterine bleeding Disposition: HOME SELF-CARE Condition: Good Instructions: Dysfunctional Uterine Bleeding (ED) Additional Instructions: Increase fluids. Take medications as directed. Follow-up with your ENERGY SALES CONSULTANT for recheck as soon as possible. Return immediately for any new, worsening, or concerning symptoms. Is patient prescribed a controlled substance at d/c from ED?: No Referrals: Rashard Stock MD [Primary Care Provider] - 1-2 days Chana Llamas DO [Doctor of Osteopathic Medicine] - 1-2 days Time of Disposition: 04:45
[2018-06-04] MEDS ORDERED: ACET/COD 300 MG/30 MG STARTER PACK 6 TAB BTL PO STA (04:45)
== END 2018-06-04 05:07 | disposition home or self-care (01) ==
LOC: EC 23:33
DX: O72.2 Delayed and secondary postpartum hemorrhage (principal); O90.89 Other complications of the puerperium, not elsewhere classified; R11.0 Nausea; R10.11 Right upper quadrant pain; D72.829 Elevated white blood cell count, unspecified; E07.9 Disorder of thyroid, unspecified; F17.200 Nicotine dependence, unspecified, uncomplicated; Z79.899 Other long term (current) drug therapy; Z88.2 Allergy status to sulfonamides; Z88.0 Allergy status to penicillin; Z88.5 Allergy status to narcotic agent; Z88.8 Allergy status to other drugs, medicaments and biological substances; Z53.29 Procedure and treatment not carried out because of patient's decision for other reasons
CPT/HCPCS: 36415; 80053; 82150; 83690; 85025; 85610; 85730; 81001; 81025; 99284; 96374; 96375; J2405; J1885

== ENCOUNTER → 2018-06-15 | Outpatient (CLI) | payer OTHER ==
--- NOTE | 2018-06-15 15:08 | NM ---
EXAMINATION TYPE: NM hepatobiliary w CCK DATE OF EXAM: 06/15/2018 COMPARISON: NONE HISTORY: Right upper quadrant pain TECHNIQUE: After the intravenous administration of 3.3 mCi Tc 99m Mebrofenin hepatobiliary scintigrap hy is performed. Immediate images post injection. FINDINGS: There is satisfactory initial accumulation of tracer by the liver. The gallbladder is visualized wit hin 8 minutes. The small bowel activity is noted within 23 minutes. At one hour CCK was administere d, patient was injected with 2.3 mcg of Kinevac, and gallbladder ejection fraction is calculated at 7 7 %, in the normal range. Therefore there is no scintigraphic evidence of cystic or common bile duct obstruction to suggest acute cholecystitis or gallbladder dyskinesia. IMPRESSION: 1. Normal hepatobiliary study.
== END | disposition home or self-care (01) ==
LOC: RADNMMAIN 12:49
PROVIDERS: ATTEND Family Medicine
DX: R10.811 Right upper quadrant abdominal tenderness (principal); Z88.5 Allergy status to narcotic agent; Z88.2 Allergy status to sulfonamides
CPT/HCPCS: 78227; A9537; J2805

== ENCOUNTER → 2018-07-19 | Outpatient (CLI) | payer OTHER ==
--- NOTE | 2018-07-19 17:03 | CT ---
EXAMINATION TYPE: CT abdomen pelvis w con DATE OF EXAM: 07/19/2018 COMPARISON: Prior CT abdomen pelvis 04/04/2016 HISTORY: RUQ pain CT DLP: 2108.2 mGycm Automated exposure control for dose reduction was used. TECHNIQUE: Helical acquisition of images from the lung bases through the pelvis have been completed. CONTRAST: Performed with Oral Contrast and with IV Contrast, patient injected with 100 mL of Isovue 300. FINDINGS: LUNG BASES: No significant abnormality is appreciated. AORTA: No significant abnormality is appreciated. LIVER/GB: The liver is enlarged. There is low attenuation which could be due to hepatic steatosis, ga llbladder is normal. PANCREAS: No significant abnormality is seen. SPLEEN: No significant abnormality is seen. ADRENALS: No significant abnormality is seen. KIDNEYS: No significant abnormality is seen. REPRODUCTIVE ORGANS: Possible right ovarian cyst measuring approximately 2.8 cm. Left ovarian cyst kimble s resolved in the interval. BOWEL: No significant abnormality is seen. FREE AIR: No Free Air visible. ASCITES: None visible. PELVIC ADENOPATHY: None visualized. RETROPERITONEAL ADENOPATHY: No Retroperitoneal Adenopathy visible. URINARY BLADDER: No significant abnormality is seen. OSSEOUS STRUCTURES: No significant abnormality is seen. IMPRESSION: HEPATOMEGALY, CORRELATE FOR HEPATIC STEATOSIS. Possible right ovarian cyst.
== END | disposition home or self-care (01) ==
LOC: RADCTMAIN 13:11
PROVIDERS: ATTEND Surgery
DX: R16.0 Hepatomegaly, not elsewhere classified (principal)
CPT/HCPCS: 74177; Q9967

== ENCOUNTER 2018-08-03 17:21 | Emergency (ER) | payer OTHER ==
[2018-08-03 17:33] VITALS: RESP 18
[2018-08-03] MEDS ORDERED: SODIUM CHLORIDE 0.9% 1,000 ML IV STA (18:37)
[2018-08-03] MEDS ORDERED: KETOROLAC 30 MG/ML 1 ML VIAL IVP STA (18:38)
[2018-08-03 19:07] LABS: Basophils # (A) 0.1 k/uL (0-0.2); Basophils % (A) 1 %; Eosinophils # (A) 0.4 k/uL (0-0.7); Eosinophils % (A) 4 %; HGB 14.7 gm/dL (11.4-16.0); Lymphocytes # (A) 3.9 k/uL (1.0-4.8); Lymphocytes % (A) 35 %; MCH 27.5 pg (25.0-35.0); MCHC 32.7 g/dL (31.0-37.0); MCV 84.1 fL (80.0-100.0); Mean Platelet Volume 6.4; Monocytes # (A) 0.4 k/uL (0-1.0); Monocytes % (A) 4 %; Neutrophils # (A) 6.2 k/uL (1.3-7.7); Neutrophils % (A) 55 %; Platelet Count 374 k/uL (150-450); RBC 5.34 m/uL (3.80-5.40); RDW 14.8 % (11.5-15.5); WBC 11.1 k/uL (3.8-10.6)
[2018-08-03 19:15] LABS: Appearance,Urine Cloudy (Clear); Bacteria,Urine Rare /hpf; Bilirubin,Urine Negative (Negative); Blood,Urine Large (Negative); Color,Urine Yellow; Glucose,Urine (UA) Negative (Negative); Ketones,Urine Negative (Negative); Leukocyte Esterase,Urine Small (Negative); Mucus,Urine Rare /hpf; Nitrite,Urine Negative (Negative); PH, Urine 5.5 (5.0-8.0); Protein,Urine Trace (Negative); RBC,Urine 2 /hpf (0-5); Specific Gravity,Urine 1.021 (1.001-1.035); Squamous Epithelial Cell,Urine 13 /hpf (0-4); Urobilinogen,Urine <2.0 mg/dL (<2.0); WBC,Urine 10 /hpf (0-5)
[2018-08-03 19:16] LABS: ALT 35 U/L (9-52); AST 28 U/L (14-36); Albumin 4.7 g/dL (3.5-5.0); Alkaline Phosphatase 105 U/L (38-126); Amylase 60 U/L (30-110); Anion Gap 11 mmol/L; Blood Urea Nitrogen 12 mg/dL (7-17); Calcium 10.3 mg/dL (8.4-10.2); Carbon Dioxide 22 mmol/L (22-30); Chloride 107 mmol/L (98-107); Glucose 83 mg/dL (74-99); Lipase 72 U/L (23-300); Potassium 4.7 mmol/L (3.5-5.1); Sodium 140 mmol/L (137-145); Total Bilirubin 0.8 mg/dL (0.2-1.3); Total Protein 8.3 g/dL (6.3-8.2)
--- NOTE | 2018-08-03 19:19 | XR ---
EXAMINATION TYPE: XR chest 2V DATE OF EXAM: 08/03/2018 COMPARISON: August 11, 2017 HISTORY: Right-sided chest pain TECHNIQUE: Frontal and lateral views of the chest are obtained. FINDINGS: Heart and mediastinum are normal. Lungs are clear. Diaphragm is normal. Bony thorax is int act. IMPRESSION: Normal chest. No change.
--- NOTE | 2018-08-03 19:34 | ED ---
Abdominal Pain HPI - General Chief Complaint: Abdominal Pain Stated Complaint: Abd/Back Pain Time Seen by Provider: 08/03/18 18:09 Source: patient Mode of arrival: ambulatory Limitations: no limitations - History of Present Illness Initial Comments: A 22-year-old female who denies past medical history presenting today for chief complaint of right upper quadrant pain. Patient states that she's been suffering with right upper quadrant abdominal pain for the past month and a half. Patient states the pain is localized to the right upper quadrant radiating towards the back. She states she has had an extensive workup with surgeon Dr. Carroll which included a ultrasound of the gallbladder a month ago, HIDA scan in June as well as a recent CT of the abdomen and pelvis that revealed hepatomegaly however no other acute findings. Patient's next step is to see a dairy specialist Dr. Ramos/Mireya. Patient states that for the past 2 days she has been experiencing increasing right upper quadrant abdominal pain that has been coming and going in various severity. She states that it seemed be slightly more painful than normal-however identical in characteristic. Patient admits to diarrhea, she states this has been ongoing for the past month and a half with every bowel movement. Patient denies any fever, nausea, vomiting, chest pain, shortness breath, calf pain, jaundice or yellowing of skin , cough, sputum production, lower abdominal pain, vaginal discharge, pain with sex or any other associated symptoms. Upon arrival pt appears well, no signs of acute distress. Vital signs within normal limits. - Related Data Home Medications Medication Instructions Recorded Confirmed Levothyroxine Sodium [Synthroid] 150 mcg PO DAILY 12/03/16 04/26/18 Pnv,Calcium 72/Iron/Folic Acid 1 tab PO DAILY 10/18/17 04/26/18 [ Plus Tablet] Previous Rx's Medication Instructions Recorded Ibuprofen [Motrin] 600 mg PO Q6HR PRN #30 tab 04/27/18 Allergies Allergy/AdvReac Type Severity Reaction Status Date / Time morphine Allergy Rash/Hives Verified 08/03/18 17:30 Sulfa (Sulfonamide Allergy Rash/Hives Verified 08/03/18 17:30 Antibiotics) topiramate [From Topamax] Allergy Anaphylaxis Verified 08/03/18 17:30 Penicillins AdvReac Unknown Verified 08/03/18 17:30 Review of Systems ROS Statement: Those systems with pertinent positive or pertinent negative responses have been documented in the HPI. ROS Other: All systems not noted in ROS Statement are negative. Past Medical History Past Medical History: Thyroid Disorder Additional Past Medical History / Comment(s): breast biopsy right side, not cancer. Subjective history: She's had 2 previous vaginal deliveries and 1 miscarriage. This is her fourth . Blood type A+, and was negative, rubella immune, RPR nonreactive, hepatitis B-, HIV nonreactive, toxo plus was negative, negative quad screen, normal anatomy ultrasound. GBS negative. History of Any Multi-Drug Resistant Organisms: None Reported Past Surgical History: Orthopedic Surgery Additional Past Surgical History / Comment(s): childhood ear surgery, ACL repair , facial reconstruction on the left side of her face due to a dog bite at age 1 Past Anesthesia/Blood Transfusion Reactions: No Reported Reaction Past Psychological History: ADD/ADHD, Anxiety, Depression Smoking Status: Current every day smoker Past Alcohol Use History: Rare Past Drug Use History: Marijuana - Past Family History Mother Family Medical History: No Reported History General Exam - General Exam Comments Initial Comments: General: The patient is awake and alert, in no distress, and does not appear acutely ill. Eye: +3 mm pupils are equal, round and reactive to light, extra-ocular movements are intact. No nystagmus. There is normal conjunctiva bilaterally. No signs of icterus. Ears, nose, mouth and throat: There are moist mucous membranes and no oral lesions. Neck: The neck is supple, there is no tenderness or JVD. Cardiovascular: There is a regular rate and rhythm. No murmur, rub or gallop is appreciated. Respiratory: Lungs are clear to auscultation, respirations are non-labored, breath sounds are equal. No wheezes, stridor, rales, or rhonchi. Gastrointestinal: No noted diaphoresis, jaundice, pallor, protecting postures or squirming. Symmetrical pigmentation of abdomen without signs of inflammation. Stridor present on abdomen. Umbilicus mildline, inverted without swelling. No dilated veins. Abdomen contour obese, no noted abdominal distention. No visible masses. No peristalsis, aortic pulsations, or ventral hernia. Bowel sounds audible in all 4 quadrants, unremarkable. Patient is tender deep palpation of the right upper quadrant, remainder of abdominal exam benign. No tenderness to light or deep palpation. No evidence of rigidity or guarding Liver edge, not palpable. Spleen edge, right and left kidney not palpable. Superior bladder margin non- tender. Positive Ibrahim sign. Special Testing: Negative Rovsing, McBurney, Irma, cutaneous hyperesthesia. Negative Heel Jar test/jomar sign. No CVA tenderness. Digital rectal exam deferred.Negative cervantes turners or cullens sign Musculoskeletal: Normal ROM, no tenderness. Strength 5/5. Sensation intact. Pulses equal bilaterally 2+. Neurological: A&O x 3. CN II-XII intact, There are no obvious motor or sensory deficits. Coordination appears grossly intact. Speech is normal. Skin: Skin is warm and dry and no rashes or lesions are noted. Psychiatric: Cooperative, appropriate mood & affect, normal judgment. Limitations: no limitations Course Vital Signs 08/03/18 08/03/18 08/03/18 17:30 19:44 21:35 Temperature 97.9 F 98.2 F Pulse Rate 100 64 89 Respiratory 18 18 18 Rate Blood Pressure 128/89 114/63 132/76 O2 Sat by Pulse 100 98 95 Oximetry Medical Decision Making - Medical Decision Making 22-year-old female presenting today for chief complaint of RUQ abdominal pain 1.5 month. Patient had extensive workup through general surgery and is currently scheduled with an appointment for gastroenterology evaluation. Patient denies any significant changes in her right upper quadrant pain. Repeat ultrasound of the gallbladder (-) acute changes.Laboratory studies stable , no acute findings-as noted above. Patient is a very had a previous HIDA scan , CT of the abdomen pelvis. Patient was given pain medication in the emergency department, she stated this significantly improved her symptoms. Given that the patient given pain under control, complaint chronic in nature, and no changes in abdominal US with recent CT abdomen and pelvic that patient is stable for discharge with follow-up as directed. Patient is agreeable plan. I did give patient a starter pack of Tylenol No. 3 for pain management however I discussed risk of masking worsening of symptoms-injected patient only to take medication as directed. Patient is agreeable plan. Return parameters discussed at length with patient who verbalized understanding. I discussed the case at length with Dr. Ruiz who agrees impression and plan. Patient was discharged in stable condition denied questions at this time. - Lab Data Result diagrams: 08/03/18 18:31 08/03/18 18:31 Lab Results 08/03/18 08/03/18 08/03/18 Range/Units 18:31 18:31 18:31 WBC 11.1 H (3.8-10.6) k/uL RBC 5.34 (3.80-5.40) m/uL Hgb 14.7 (11.4-16.0) gm/dL Hct 45.0 (34.0-46.0) % MCV 84.1 (80.0-100.0) fL MCH 27.5 (25.0-35.0) pg MCHC 32.7 (31.0-37.0) g/dL RDW 14.8 (11.5-15.5) % Plt Count 374 (150-450) k/uL Neutrophils % 55 % Lymphocytes % 35 % Monocytes % 4 % Eosinophils % 4 % Basophils % 1 % Neutrophils # 6.2 (1.3-7.7) k/uL Lymphocytes # 3.9 (1.0-4.8) k/uL Monocytes # 0.4 (0-1.0) k/uL Eosinophils # 0.4 (0-0.7) k/uL Basophils # 0.1 (0-0.2) k/uL Sodium 140 (137-145) mmol/L Potassium 4.7 (3.5-5.1) mmol/L Chloride 107 (98-107) mmol/L Carbon Dioxide 22 (22-30) mmol/L Anion Gap 11 mmol/L BUN 12 (7-17) mg/dL Creatinine 0.76 (0.52-1.04) mg/dL Est GFR (CKD-EPI)AfAm >90 (>60 ml/min/1.73 sqM) Est GFR (CKD-EPI)NonAf >90 (>60 ml/min/1.73 sqM) Glucose 83 (74-99) mg/dL Calcium 10.3 H (8.4-10.2) mg/dL Total Bilirubin 0.8 (0.2-1.3) mg/dL AST 28 (14-36) U/L ALT 35 (9-52) U/L Alkaline Phosphatase 105 (38-126) U/L Total Protein 8.3 H (6.3-8.2) g/dL Albumin 4.7 (3.5-5.0) g/dL Amylase 60 (30-110) U/L Lipase 72 (23-300) U/L Urine Color Yellow Urine Appearance Cloudy H (Clear) Urine pH 5.5 (5.0-8.0) Ur Specific [place] 1.021 (1.001-1.035) Urine Protein Trace H (Negative) Urine Glucose (UA) Negative (Negative) Urine Ketones Negative (Negative) Urine Blood Large H (Negative) Urine Nitrite Negative (Negative) Urine Bilirubin Negative (Negative) Urine Urobilinogen <2.0 (<2.0) mg/dL Ur Leukocyte Esterase Small H (Negative) Urine RBC 2 (0-5) /hpf Urine WBC 10 H (0-5) /hpf Ur Squamous Epith Cells 13 H (0-4) /hpf Urine Bacteria Rare H (None) /hpf Urine Mucus Rare H (None) /hpf Disposition Clinical Impression: Hepatomegaly, Right upper quadrant abdominal pain Disposition: HOME SELF-CARE Condition: Good Instructions: Abdominal Pain (ED) Additional Instructions: Please use medication as discussed, driving, operating machinery or working while taking Tylenol 3. Please follow-up with family doctor in the next 2 days of symptoms. Please return to emergency room if the symptoms increase or worsen or for any other concerns, as discussed. Follow up with gastroenterology and general surgery as scheduled. Is patient prescribed a controlled substance at d/c from ED?: No Referrals: Rashard Stock MD [Primary Care Provider] - 1-2 days Semaj Veras MD [Medical Doctor] - 1-2 days Time of Disposition: 21:21
--- NOTE | 2018-08-03 20:56 | US ---
EXAMINATION TYPE: US abdomen limited DATE OF EXAM: 08/03/2018 COMPARISON: NONE CLINICAL HISTORY: gallbladder/liver/pancreas. RUQ pain, patient states known enlarged liver EXAM MEASUREMENTS: Liver Length: 24.0 cm Gallbladder Wall: 0.3 cm CBD: 0.7 cm Right Kidney: 12.6 x 4.9 x 4.4 cm Patient ate a Snickers bar 30mins prior to exam in [facility] Pancreas: wnl Liver: severely enlarged Gallbladder: contracted, patient ate candy 30mins ago Evidence for sonographic Ibrahim's sign: yes CBD: upper limits of normal Right Kidney: wnl IMPRESSION: Hepatomegaly. No gallstones or dilated ducts.
[2018-08-03] MEDS ORDERED: ACET/COD 300 MG/30 MG STARTER PACK 6 TAB BTL PO STA (21:19)
[2018-08-03 21:37] VITALS: BP 132/76; PULSE 89; TEMP 98.2
== END 2018-08-03 21:43 | disposition home or self-care (01) ==
LOC: EC 17:21
DX: R16.0 Hepatomegaly, not elsewhere classified (principal); M54.9 Dorsalgia, unspecified; R19.7 Diarrhea, unspecified; F17.200 Nicotine dependence, unspecified, uncomplicated; Z79.899 Other long term (current) drug therapy; Z88.5 Allergy status to narcotic agent; Z88.2 Allergy status to sulfonamides; Z88.8 Allergy status to other drugs, medicaments and biological substances; Z88.0 Allergy status to penicillin
CPT/HCPCS: 36415; 80053; 82150; 83690; 85025; 81001; 71046; 76705; 99285; 96374; 96361 ×3; J1885

== ENCOUNTER 2018-09-06 11:21 | Day surgery (SDC) | payer OTHER ==
[2018-09-03 10:20] VITALS: BMI 44.6
[~2018-09-06 11:21] MED LIST: LACTATED RINGERS 1,000 ML IV SCH; LIDOCAINE 1% 20 ML VIAL (10MG/ML) FOR IV START INTRADERMA PRN; MIDAZOLAM 2 MG/2 ML VIAL IV PRN
[2018-09-06 12:16] VITALS: TEMP 98.1
[2018-09-06] MEDS ORDERED: GLYCOPYRROLATE 0.2 MG/ML 2 ML VIAL ONE (13:14)
[2018-09-06] MEDS ORDERED: PROPOFOL 10 MG/ML 20 ML VIAL IV ONE (13:14)
[2018-09-06] MEDS ORDERED: ONDANSETRON 4 MG/2 ML VIAL ONE (13:14)
[2018-09-06] MEDS ORDERED: LIDOCAINE 1% INJ 10MG/ML (20 ML MDV) ONE (13:14)
[2018-09-06 13:59] VITALS: RESP 16
--- NOTE | 2018-09-06 14:00 | P.PCN ---
Date of Procedure: 09/06/18 Procedure(s) Performed: Procedure: 1. Esophagogastroduodenoscopy and biopsy. 2. Colonoscopy and biopsy. Preoperative diagnosis: Epigastric pain, nausea, vomiting and change in bowel habits and weight loss. Postoperative diagnosis: 1. Mild antral gastritis. 2. Normal colon and terminal ileum. 3. Biopsies obtained from the duodenum, antrum, esophagus, terminal ileum and right colon. Preparation: HalfLytely prep. Sedation: Was provided by anesthesia. Brief clinical history: The patient is a 22-year-old female who was been troubled with epigastric pain, nausea, vomiting and diarrhea of around 4 months duration. The patient was seen in the emergency room recently and was noted to have an enlarged liver. The patient had recent delivery and the baby is now 4 months old. Apparently, her pains have gotten worse around 20 have months ago. She has daily diarrhea as well. This evaluation is to assess for celiac disease, inflammatory bowel disease or other pathology. Procedure: With the patient on her left lateral decubitus position and after informed consent and adequate sedation, I passed a Olympus-GIF a 190 video upper endoscope through the cricopharyngeus down the esophagus. The esophagus appeared healthy with no obvious evidence of esophagitis or complicated reflux disease. There was no hiatal hernia then the endoscope was then passed into the stomach which was insufflated with air and inspected in detail including the retroflex view in the cardia. There was minimal mottling and erythema in the antrum but no ulcers or erosions. Pyloric channel, duodenal bulb, post bulbar area and descending duodenum appeared within normal limits. I obtained biopsies from the duodenum, antrum and esophagus then the endoscope was withdrawn and I proceeded to perform the colonoscopy. Perianal area did not show any fissures or fistulas. There were no masses felt on digital rectal examination. The Olympus CFH 190L video colonoscope was then inserted in the rectum in the usual fashion and advanced to the cecum. I intubated the ileocecal valve and examined the terminal ileum. Terminal ileum and colon appeared healthy with no edema, erythema, friability, ulceration, exudation or spontaneous bleeding. No polyps or tumors were seen or any obvious diverticular disease or other pathology. I obtained biopsies from the terminal ileum and right colon then I retroflexed the endoscope in the rectum before the endoscope was withdrawn. The patient tolerated the procedure well. Plan: The patient was reassured. Will await biopsy results. She will follow- up in the office as planned and further plans can be made based on her course and biopsy results.
[2018-09-06 14:18] VITALS: BP 105/69; PULSE 72
== END 2018-09-06 14:52 | disposition home or self-care (01) ==
LOC: ORWHC2ENDO 11:21
DX: K29.50 Unspecified chronic gastritis without bleeding (principal); R19.7 Diarrhea, unspecified; F17.210 Nicotine dependence, cigarettes, uncomplicated; K21.9 Gastro-esophageal reflux disease without esophagitis; Z88.5 Allergy status to narcotic agent; Z88.0 Allergy status to penicillin; Z88.2 Allergy status to sulfonamides; Z79.890 Hormone replacement therapy; Z79.899 Other long term (current) drug therapy
CPT/HCPCS: 81025; 45380; 43239; J2405; J2001; J2704; 88305

== ENCOUNTER 2018-12-11 13:55 | Emergency (ER) | payer OTHER ==
[2018-12-11 14:01] VITALS: BP 116/75; PULSE 89; RESP 18; TEMP 98.4
[2018-12-11] MEDS ORDERED: CEPHALEXIN 500MG STARTER PACK 4 CAP BTL PO STA (14:40)
--- NOTE | 2018-12-11 14:44 | ED ---
Wound/Laceration HPI - General Chief Complaint: Wound/Laceration Stated Complaint: Incision infection Time Seen by Provider: 12/11/18 14:03 Source: patient, RN notes reviewed, old records reviewed Mode of arrival: wheelchair Limitations: no limitations - History of Present Illness Initial Comments: Patient is a 23-year-old female presents weren't department stay for evaluation for redness over her right knee. She reports that she had her right knee meniscal repair, an ACL repair on November 19 in [facility] by Dr. Sánchez. Patient states that she has had no fevers or chills. She is working with physical therapy at this time. Patient states she noticed some pus coming from the lower portion of the incision site. She states that this is where her brace rubs constantly. Patient states that she has had no fevers or chills. Denies any decreased range of motion. She reports a slight burning sensation around the incision site. - Related Data Home Medications Medication Instructions Recorded Confirmed Levothyroxine Sodium [Synthroid] 150 mcg PO DAILY 12/03/16 09/03/18 ALPRAZolam [Xanax] 0.5 mg PO BID PRN 09/03/18 09/03/18 ARIPiprazole [Abilify] 2 mg PO BID 09/03/18 09/03/18 Dextroamphetamine/Amphetamine 10 mg PO BID 09/03/18 09/06/18 [Adderall] Etonogestrel/Ethinyl Estradiol 1 each VG DIRECTED 09/03/18 09/06/18 [Nuvaring Vaginal Ring] Allergies Allergy/AdvReac Type Severity Reaction Status Date / Time morphine Allergy Rash/Hives Verified 12/11/18 14:01 Sulfa (Sulfonamide Allergy Rash/Hives Verified 12/11/18 14:01 Antibiotics) topiramate [From Topamax] Allergy Anaphylaxis Verified 12/11/18 14:01 Penicillins AdvReac Unknown Verified 12/11/18 14:01 Review of Systems ROS Statement: Those systems with pertinent positive or pertinent negative responses have been documented in the HPI. ROS Other: All systems not noted in ROS Statement are negative. Past Medical History Past Medical History: GERD/Reflux, Thyroid Disorder Additional Past Medical History / Comment(s): right sided abd. pain, diarrhea, N/V, gas, bloating for 3 months, states liver enlarged History of Any Multi-Drug Resistant Organisms: None Reported Past Surgical History: Breast Surgery, Orthopedic Surgery Additional Past Surgical History / Comment(s): childhood ear surgery, ACL repair right knee, facial reconstruction on the left side of her face due to a dog bite at age 1, breast biopsy Past Anesthesia/Blood Transfusion Reactions: No Reported Reaction Past Psychological History: ADD/ADHD, Anxiety, Depression Smoking Status: Current every day smoker Past Alcohol Use History: None Reported Past Drug Use History: Marijuana - Past Family History Mother Family Medical History: No Reported History General Exam - General Exam Comments Initial Comments: Well-appearing 23-year-old female. No distress. Limitations: no limitations Head exam: Present: atraumatic, normocephalic, normal inspection Eye exam: Present: normal appearance, PERRL, EOMI. Absent: scleral icterus, conjunctival injection, periorbital swelling ENT exam: Present: normal exam, mucous membranes moist Neck exam: Present: normal inspection. Absent: tenderness, meningismus, lymphadenopathy Respiratory exam: Present: normal lung sounds bilaterally. Absent: respiratory distress, wheezes, rales, rhonchi, stridor Cardiovascular Exam: Present: regular rate, normal rhythm, normal heart sounds. Absent: systolic murmur, diastolic murmur, rubs, gallop, clicks GI/Abdominal exam: Present: soft, normal bowel sounds. Absent: distended, tenderness, guarding, rebound, rigid Extremities exam: Present: normal inspection, full ROM, normal capillary refill, other (Right knee has evidence of recent incision site, some minor erythema on the inferior part of the incision site. No drainage and at this time. Patient showed me a picture which did have a purulent green drainage. The wound is slightly dehisced.). Absent: tenderness, pedal edema, joint swelling, calf tenderness Back exam: Present: normal inspection Neurological exam: Present: alert, oriented X3, CN II-XII intact Psychiatric exam: Present: normal affect, normal mood Skin exam: Present: warm, dry, intact, normal color. Absent: rash Course Vital Signs 12/11/18 13:58 Temperature 98.4 F Pulse Rate 89 Respiratory 18 Rate Blood Pressure 116/75 O2 Sat by Pulse 99 Oximetry Medical Decision Making - Medical Decision Making Suzanne is a 23 old female presents today for evaluation for irritation and redness from her recent right knee meniscal and ACL repair. She had surgery on November [address] Sánchez. At this time she has a minimal cellulitis over the inferior portion of the surgical site. There is minor wound dehiscence. I cleaned the area with an alcohol swab and closed it with Steri-Strips. Patient has no drainage at this time. Normal range of motion sensation distally. I discussed treatment of Patient for surgical site infection with Keflex. I'm not concerned for any infection within the joint. Discussed the Patient is a follow-up probably with her surgeon this week and. Discussed if the area of redness swelling worsens to return to Hospital for reevaluation. Disposition Clinical Impression: Surgical site infection Disposition: HOME SELF-CARE Condition: Good Instructions (If sedation given, give patient instructions): Surgical Site Infections (ED) Additional Instructions: Follow-up with your surgeon within the next week. Take antibiotics as prescribed. Allow the Steri-Strips to fall off on their own. Return to the emergency department if any alarming signs or symptoms occur. Is patient prescribed a controlled substance at d/c from ED?: No Referrals: Rashard Stock MD [Primary Care Provider] - 1-2 days Time of Disposition: 14:43
== END 2018-12-11 14:51 | disposition home or self-care (01) ==
LOC: EC 13:55
DX: T81.41XA Infection following a procedure, superficial incisional surgical site, initial encounter (principal); T81.30XA Disruption of wound, unspecified, initial encounter; L03.115 Cellulitis of right lower limb; E07.9 Disorder of thyroid, unspecified; F90.9 Attention-deficit hyperactivity disorder, unspecified type; F41.9 Anxiety disorder, unspecified; F32.9 Major depressive disorder, single episode, unspecified; F17.200 Nicotine dependence, unspecified, uncomplicated; Z79.890 Hormone replacement therapy; Z79.899 Other long term (current) drug therapy; Z88.0 Allergy status to penicillin; Z88.2 Allergy status to sulfonamides; Z88.5 Allergy status to narcotic agent; Z88.8 Allergy status to other drugs, medicaments and biological substances; Z98.890 Other specified postprocedural states
CPT/HCPCS: 99283

== ENCOUNTER 2018-12-29 23:21 | Emergency (ER) | payer OTHER ==
[2018-12-29 23:33] VITALS: BP 166/85; PULSE 99; RESP 18; TEMP 98.4
[2018-12-30] MEDS ORDERED: DICYCLOMINE 10 MG/ML 2 ML AMP IM STA (01:13)
[2018-12-30] MEDS ORDERED: SODIUM CHLORIDE 0.9% 1,000 ML IV STA (01:13)
[2018-12-30 01:22] LABS: Basophils # (A) 0.1 k/uL (0-0.2); Basophils % (A) 1 %; Eosinophils # (A) 0.3 k/uL (0-0.7); Eosinophils % (A) 2 %; HCT 41.5 % (34.0-46.0); HGB 13.5 gm/dL (11.4-16.0); Lymphocytes # (A) 4.3 k/uL (1.0-4.8); Lymphocytes % (A) 36 %; MCHC 32.4 g/dL (31.0-37.0); MCV 86.3 fL (80.0-100.0); Mean Platelet Volume 6.7; Monocytes # (A) 0.4 k/uL (0-1.0); Monocytes % (A) 3 %; Neutrophils # (A) 6.9 k/uL (1.3-7.7); Neutrophils % (A) 57 %; Platelet Count 380 k/uL (150-450); RBC 4.81 m/uL (3.80-5.40); RDW 13.5 % (11.5-15.5); WBC 12.1 k/uL (3.8-10.6)
[2018-12-30 01:28] LABS: Appearance,Urine Cloudy (Clear); Bilirubin,Urine Negative (Negative); Blood,Urine Negative (Negative); Color,Urine Yellow; Glucose,Urine (UA) Negative (Negative); Ketones,Urine Negative (Negative); Leukocyte Esterase,Urine Small (Negative); Mucus,Urine Occasional /hpf; Nitrite,Urine Negative (Negative); PH, Urine 5.5 (5.0-8.0); Protein,Urine Negative (Negative); RBC,Urine 1 /hpf (0-5); Specific Gravity,Urine 1.021 (1.001-1.035); Squamous Epithelial Cell,Urine 15 /hpf (0-4); Urobilinogen,Urine <2.0 mg/dL (<2.0); WBC,Urine 5 /hpf (0-5)
[2018-12-30 01:32] LABS: ALT 24 U/L (9-52); AST 28 U/L (14-36); Albumin 4.6 g/dL (3.5-5.0); Alkaline Phosphatase 104 U/L (38-126); Amylase 57 U/L (30-110); Anion Gap 11 mmol/L; Blood Urea Nitrogen 8 mg/dL (7-17); Calcium 10.2 mg/dL (8.4-10.2); Carbon Dioxide 22 mmol/L (22-30); Chloride 106 mmol/L (98-107); Glucose 77 mg/dL (74-99); Lipase 57 U/L (23-300); Potassium 3.9 mmol/L (3.5-5.1); Sodium 139 mmol/L (137-145); Total Bilirubin 0.7 mg/dL (0.2-1.3); Total Protein 7.8 g/dL (6.3-8.2)
--- NOTE | 2018-12-30 02:02 | XR ---
EXAM: XR Abdomen, 1 View CLINICAL HISTORY: ITS.REASON XR Reason: abdominal pain TECHNIQUE: Frontal supine view of the abdomen/pelvis. COMPARISON: No relevant prior studies available. FINDINGS: Gastrointestinal tract: Unremarkable. No dilation. Organs: The liver appears to be enlarged. Bones/joints: Unremarkable. IMPRESSION: No acute findings.
--- NOTE | 2018-12-30 02:11 | ED ---
Abdominal Pain HPI - General Chief Complaint: Abdominal Pain Stated Complaint: Abd Pain Time Seen by Provider: 12/30/18 00:49 Source: patient, family Mode of arrival: ambulatory Limitations: no limitations - History of Present Illness Initial Comments: 23-year-old female patient presents to the emergency department today for generalized abdominal pain. Patient states she's been having similar type pain on and off over the last 7-8 months. Patient states that this current episode started 2 days ago. Patient states she has been having diarrhea with this. States she has been nauseated but has not vomited. Denies any fever or chills. Patient denies any hematuria, dysuria, urinary frequency, urinary urgency. She denies any abnormal vaginal bleeding or discharge. Denies any chance of . Patient states she has been see a manager reporting who diagnosed her with fatty liver but was unable to find a cause for her pain. States she di d have colonoscopy that was unremarkable. Patient denies any recent rash, shortness breath, chest pain, back pain, numbness, tingling, dizziness, weakness, headache, visual changes, or any other complaints. - Related Data Home Medications Medication Instructions Recorded Confirmed Levothyroxine Sodium [Synthroid] 150 mcg PO DAILY 12/03/16 09/03/18 ALPRAZolam [Xanax] 0.5 mg PO BID PRN 09/03/18 09/03/18 ARIPiprazole [Abilify] 2 mg PO BID 09/03/18 09/03/18 Dextroamphetamine/Amphetamine 10 mg PO BID 09/03/18 09/06/18 [Adderall] Etonogestrel/Ethinyl Estradiol 1 each VG DIRECTED 09/03/18 09/06/18 [Nuvaring Vaginal Ring] Previous Rx's Medication Instructions Recorded Cephalexin [Keflex] 500 mg PO Q6H #40 cap 12/11/18 Allergies Allergy/AdvReac Type Severity Reaction Status Date / Time morphine Allergy Rash/Hives Verified 12/29/18 23:33 Sulfa (Sulfonamide Allergy Rash/Hives Verified 12/29/18 23:33 Antibiotics) topiramate [From Topamax] Allergy Anaphylaxis Verified 12/29/18 23:33 Penicillins AdvReac Unknown Verified 12/29/18 23:33 Review of Systems ROS Statement: Those systems with pertinent positive or pertinent negative responses have been documented in the HPI. ROS Other: All systems not noted in ROS Statement are negative. Past Medical History Past Medical History: GERD/Reflux, Thyroid Disorder Additional Past Medical History / Comment(s): right sided abd. pain, diarrhea, N/V, gas, bloating for 3 months, states liver enlarged History of Any Multi-Drug Resistant Organisms: None Reported Past Surgical History: Breast Surgery, Orthopedic Surgery Additional Past Surgical History / Comment(s): childhood ear surgery, ACL repair right knee, facial reconstruction on the left side of her face due to a dog bite at age 1, breast biopsy Past Anesthesia/Blood Transfusion Reactions: No Reported Reaction Past Psychological History: ADD/ADHD, Anxiety, Depression Smoking Status: Current every day smoker Past Alcohol Use History: Occasional Past Drug Use History: Marijuana - Past Family History Mother Family Medical History: No Reported History General Exam Limitations: no limitations General appearance: alert, in no apparent distress, other (This is a well- developed, well-nourished adult female patient in no acute distress. Vital signs upon presentation are temperature 98.4F, pulse 99, respirations 18 blood pressure 166/85, pulse ox 98% on room air) Eye exam: Present: normal appearance, PERRL, EOMI. Absent: scleral icterus, conjunctival injection, periorbital swelling ENT exam: Present: normal exam, normal oropharynx, mucous membranes moist Respiratory exam: Present: normal lung sounds bilaterally. Absent: respiratory distress, wheezes, rales, rhonchi, stridor Cardiovascular Exam: Present: regular rate, normal rhythm, normal heart sounds. Absent: systolic murmur, diastolic murmur, rubs, gallop, clicks GI/Abdominal exam: Present: soft, normal bowel sounds. Absent: distended, tenderness, guarding, rebound, rigid Neurological exam: Present: alert, oriented X3, CN II-XII intact Psychiatric exam: Present: normal affect, normal mood Skin exam: Present: warm, dry, intact, normal color. Absent: rash Course Vital Signs 12/29/18 23:28 Temperature 98.4 F Pulse Rate 99 Respiratory 18 Rate Blood Pressure 166/85 O2 Sat by Pulse 98 Oximetry Medical Decision Making - Medical Decision Making 23-year-old female patient presents to the emergency department today for evaluation of generalized abdominal pain. Physical examination reveals a soft nontender abdomen. Labs reviewed and were unremarkable. Patient is having exacerbation of her chronic abdominal pain. She is instructed to follow-up with her primary care physician for recheck as soon as possible. Return to the emergency department for any new, worsening, or concerning symptoms. She verb alizes understanding and agrees with this plan. - Lab Data Result diagrams: 12/30/18 00:15 12/30/18 00:15 Lab Results 12/30/18 12/30/18 12/30/18 Range/Units 00:15 00:15 00:15 WBC 12.1 H (3.8-10.6) k/uL RBC 4.81 (3.80-5.40) m/uL Hgb 13.5 (11.4-16.0) gm/dL Hct 41.5 (34.0-46.0) % MCV 86.3 (80.0-100.0) fL MCH 28.0 (25.0-35.0) pg MCHC 32.4 (31.0-37.0) g/dL RDW 13.5 (11.5-15.5) % Plt Count 380 (150-450) k/uL Neutrophils % 57 % Lymphocytes % 36 % Monocytes % 3 % Eosinophils % 2 % Basophils % 1 % Neutrophils # 6.9 (1.3-7.7) k/uL Lymphocytes # 4.3 (1.0-4.8) k/uL Monocytes # 0.4 (0-1.0) k/uL Eosinophils # 0.3 (0-0.7) k/uL Basophils # 0.1 (0-0.2) k/uL Sodium 139 (137-145) mmol/L Potassium 3.9 (3.5-5.1) mmol/L Chloride 106 (98-107) mmol/L Carbon Dioxide 22 (22-30) mmol/L Anion Gap 11 mmol/L BUN 8 (7-17) mg/dL Creatinine 0.71 (0.52-1.04) mg/dL Est GFR (CKD-EPI)AfAm >90 (>60 ml/min/1.73 sqM) Est GFR (CKD-EPI)NonAf >90 (>60 ml/min/1.73 sqM) Glucose 77 (74-99) mg/dL Calcium 10.2 (8.4-10.2) mg/dL Total Bilirubin 0.7 (0.2-1.3) mg/dL AST 28 (14-36) U/L ALT 24 (9-52) U/L Alkaline Phosphatase 104 (38-126) U/L Total Protein 7.8 (6.3-8.2) g/dL Albumin 4.6 (3.5-5.0) g/dL Amylase 57 (30-110) U/L Lipase 57 (23-300) U/L Urine Color Urine Appearance (Clear) Urine pH (5.0-8.0) Ur Specific [place] (1.001-1.035) Urine Protein (Negative) Urine Glucose (UA) (Negative) Urine Ketones (Negative) Urine Blood (Negative) Urine Nitrite (Negative) Urine Bilirubin (Negative) Urine Urobilinogen (<2.0) mg/dL Ur Leukocyte Esterase (Negative) Urine RBC (0-5) /hpf Urine WBC (0-5) /hpf Ur Squamous Epith Cells (0-4) /hpf Urine Mucus (None) /hpf Urine HCG, Qual Not Detected (Not Detectd) 12/30/18 Range/Units 00:15 WBC (3.8-10.6) k/uL RBC (3.80-5.40) m/uL Hgb (11.4-16.0) gm/dL Hct (34.0-46.0) % MCV (80.0-100.0) fL MCH (25.0-35.0) pg MCHC (31.0-37.0) g/dL RDW (11.5-15.5) % Plt Count (150-450) k/uL Neutrophils % % Lymphocytes % % Monocytes % % Eosinophils % % Basophils % % Neutrophils # (1.3-7.7) k/uL Lymphocytes # (1.0-4.8) k/uL Monocytes # (0-1.0) k/uL Eosinophils # (0-0.7) k/uL Basophils # (0-0.2) k/uL Sodium (137-145) mmol/L Potassium (3.5-5.1) mmol/L Chloride (98-107) mmol/L Carbon Dioxide (22-30) mmol/L Anion Gap mmol/L BUN (7-17) mg/dL Creatinine (0.52-1.04) mg/dL Est GFR (CKD-EPI)AfAm (>60 ml/min/1.73 sqM) Est GFR (CKD-EPI)NonAf (>60 ml/min/1.73 sqM) Glucose (74-99) mg/dL Calcium (8.4-10.2) mg/dL Total Bilirubin (0.2-1.3) mg/dL AST (14-36) U/L ALT (9-52) U/L Alkaline Phosphatase (38-126) U/L Total Protein (6.3-8.2) g/dL Albumin (3.5-5.0) g/dL Amylase (30-110) U/L Lipase (23-300) U/L Urine Color Yellow Urine Appearance Cloudy H (Clear) Urine pH 5.5 (5.0-8.0) Ur Specific [place] 1.021 (1.001-1.035) Urine Protein Negative (Negative) Urine Glucose (UA) Negative (Negative) Urine Ketones Negative (Negative) Urine Blood Negative (Negative) Urine Nitrite Negative (Negative) Urine Bilirubin Negative (Negative) Urine Urobilinogen <2.0 (<2.0) mg/dL Ur Leukocyte Esterase Small H (Negative) Urine RBC 1 (0-5) /hpf Urine WBC 5 (0-5) /hpf Ur Squamous Epith Cells 15 H (0-4) /hpf Urine Mucus Occasional H (None) /hpf Urine HCG, Qual (Not Detectd) - Radiology Data Radiology results: report reviewed, image reviewed One view x-ray of the abdomen is obtained. Report is reviewed in its entirety. Impression by Dr. Dacosta shows no acute findings. Disposition Clinical Impression: Abdominal pain Disposition: HOME SELF-CARE Condition: Good Instructions (If sedation given, give patient instructions): Abdominal Pain (ED) Additional Instructions: Start with clear liquid diet and advance as tolerated. Follow-up with her primary care physician for recheck as soon as possible. Return to the emergency department immediately for any new, worsening, or concerning symptoms. Is patient prescribed a controlled substance at d/c from ED?: No Referrals: Rashard Stock MD [Primary Care Provider] - 1-2 days Time of Disposition: 02:10
[2018-12-30] MEDS ORDERED: ONDANSETRON 4 MG/2 ML VIAL IVP STA (02:17)
[2018-12-30] MEDS ORDERED: HYDROmorphone 0.5 MG/0.5 ML SYRINGE IVP STA (02:20)
[2018-12-30] MEDS ORDERED: KETOROLAC 30 MG/ML 1 ML VIAL IVP STA (02:20)
[2018-12-30] MEDS ORDERED: ONDANSETRON 4 MG ODT STARTER PACK 2 TAB BTL PO STA (03:12)
[2018-12-30] MEDS ORDERED: ACET/COD 300 MG/30 MG STARTER PACK 6 TAB BTL PO STA (03:12)
== END 2018-12-30 03:26 | disposition home or self-care (01) ==
LOC: EC 23:21
DX: R10.84 Generalized abdominal pain (principal); G89.29 Other chronic pain; R11.0 Nausea; R19.7 Diarrhea, unspecified; E07.9 Disorder of thyroid, unspecified; F32.9 Major depressive disorder, single episode, unspecified; F41.9 Anxiety disorder, unspecified; F90.9 Attention-deficit hyperactivity disorder, unspecified type; F17.200 Nicotine dependence, unspecified, uncomplicated; Z88.0 Allergy status to penicillin; Z88.2 Allergy status to sulfonamides; Z88.5 Allergy status to narcotic agent; Z88.8 Allergy status to other drugs, medicaments and biological substances; Z79.890 Hormone replacement therapy; Z79.899 Other long term (current) drug therapy; Z97.5 Presence of (intrauterine) contraceptive device; Z53.8 Procedure and treatment not carried out for other reasons
CPT/HCPCS: 99284; 96374; 96375; 96361 ×2; 96372; 36415; 80053; 82150; 83690; 85025; 81001; 81025; 74018; J0500; J2405; J1885; S0119

== ENCOUNTER 2019-01-16 13:46 | Emergency (ER) | payer OTHER ==
[2019-01-16 14:01] VITALS: RESP 16; TEMP 98.2
[2019-01-16] MEDS ORDERED: HYDROcodone/APAP 7.5-325MG 1 EACH TAB PO ONE (14:22)
--- NOTE | 2019-01-16 14:27 | ED ---
General Adult HPI - General Chief complaint: Extremity Injury, Lower Stated complaint: Fall-knee injury Time Seen by Provider: 01/16/19 14:02 Source: patient, EMS, RN notes reviewed, old records reviewed Mode of arrival: EMS Limitations: no limitations - History of Present Illness Initial comments: 23-year-old female patient with past history of ACL reconstruction in November presents to ED with right knee injury. Patient reports that she was walking when she stepped into a hole with her right foot unexpectedly, patient works that she lost her balance and fell forward on a flexed knee. Patient was that she has pain in the back of her knee. Patient denies a sensation of need dislocation. This was the knee that had previous ACL reconstruction approx imately 2 months ago. Patient states that she has pain with flexion extension of her knee. Denies any other complaints. Patient states that she is not . Systemic: Pt denies fatigue, fever/chills, rash. Pt denies weakness, night sweats, weight loss. Neuro: Pt denies headache, visual disturbances, syncope or pre-syncope. HEENT: Pt denies ocular discharge or irritation, otalgia, rhinorrhea, pharyngitis or notable lymphadenopathy. Cardiopulmonary: Pt denies chest pain, SOB, heart palpitations, dyspnea on exertion. Abdominal/GI: Pt denies abdominal pain, n/v/d. : Pt denies dysuria, burning w/ urination, frequency/urgency. Denies new onset urinary or bowel incontinence. MSK: Pt denies myalgia, loss of strength or function in extremities. Neuro: Pt denies new onset weakness, paresthesias. - Related Data Home Medications Medication Instructions Recorded Confirmed Levothyroxine Sodium [Synthroid] 150 mcg PO DAILY 12/03/16 09/03/18 ALPRAZolam [Xanax] 0.5 mg PO BID PRN 09/03/18 09/03/18 ARIPiprazole [Abilify] 2 mg PO BID 09/03/18 09/03/18 Dextroamphetamine/Amphetamine 10 mg PO BID 09/03/18 09/06/18 [Adderall] Etonogestrel/Ethinyl Estradiol 1 each VG DIRECTED 09/03/18 09/06/18 [Nuvaring Vaginal Ring] Previous Rx's Medication Instructions Recorded Cephalexin [Keflex] 500 mg PO Q6H #40 cap 12/11/18 Allergies Allergy/AdvReac Type Severity Reaction Status Date / Time morphine Allergy Rash/Hives Verified 01/16/19 13:49 Sulfa (Sulfonamide Allergy Rash/Hives Verified 01/16/19 13:49 Antibiotics) topiramate [From Topamax] Allergy Anaphylaxis Verified 01/16/19 13:49 Penicillins AdvReac Unknown Verified 01/16/19 13:49 Review of Systems ROS Statement: Those systems with pertinent positive or pertinent negative responses have been documented in the HPI. ROS Other: All systems not noted in ROS Statement are negative. Past Medical History Past Medical History: GERD/Reflux, Thyroid Disorder Additional Past Medical History / Comment(s): right sided abd. pain, diarrhea, N/V, gas, bloating for 3 months, states liver enlarged History of Any Multi-Drug Resistant Organisms: None Reported Past Surgical History: Breast Surgery, Orthopedic Surgery Additional Past Surgical History / Comment(s): childhood ear surgery, ACL repair right knee, facial reconstruction on the left side of her face due to a dog bite at age 1, breast biopsy Past Anesthesia/Blood Transfusion Reactions: No Reported Reaction Past Psychological History: ADD/ADHD, Anxiety, Depression Smoking Status: Current every day smoker Past Alcohol Use History: Occasional Past Drug Use History: Marijuana - Past Family History Mother Family Medical History: No Reported History General Exam - General Exam Comments Initial Comments: Constitutional: NAD, AOX3, Pt has pleasant affect. HEENT: NC/AT, trachea midline, neck supple, no lymphadenopathy. Posterior pharynx non erythematous, without exudates. External ears appear normal, without discharge. Mucous membranes moist. Eyes PERRLA, EOM intact. There is no scleral icterus. No pallor noted. Cardiopulmonary: RRR, no murmurs, rubs or gallops, no JVD noted. Lungs CTAB in anterior and posterior jack. No peripheral edema. Abdominal exam: Abdomen soft and non-distended. Abdomen non-tender to palpation in all 4 quadrants. Bowel sounds active in LLQ. No hepatosplenomegaly. No ecchymosis Neuro: CN II-XII grossly intact. No nuchal rigidity. No raccon eyes, no clemons sign, no hemotympanum. No cervical spinal tenderness. MSK: Distal pulses intact and equal. Active range of motion of right knee mildly limited secondary to discomfort, flexion and extension intact. Mild tenderness to palpation posterior aspect of knee. No other areas of tenderness. No ecchymoses. No posterior calf tenderness bilaterally, homans sign negative bilaterally. Posterior tibialis and radial pulse +2 bilaterally. Sensation intact in upper and lower extremities. Full active ROM in upper and lower extremities, 5/5 stregnth. Limitations: no limitations Course Vital Signs 01/16/19 13:50 Temperature 98.2 F Pulse Rate 95 Respiratory 16 Rate Blood Pressure 133/82 O2 Sat by Pulse 97 Oximetry Medical Decision Making - Medical Decision Making 23-year-old female patient with past history of ACL reconstruction in November presents to ED with right knee injury. Patient reports that she was walking when she stepped into a hole with her right foot unexpectedly, patient works that she lost her balance and fell forward on a flexed knee. Patient was that she has pain in the back of her knee. Patient denies a sensation of need dislocation. This was the knee that had previous ACL reconstruction approximately 2 months ago. Patient states that she has pain with flexion extension of her knee. Denies any other complaints. Patient states that she is not . Patient states that she has an ALLERGY to morphine but is able to take perococet and norco without difficulty. Patient vital signs stable, afebrile. Physical exam displayed: Distal pulses intact and equal. Active range of motion of right knee mildly limited secondary to discomfort, flexion and extension intact. Mild tenderness to palpation posterior aspect of knee. No other areas of tenderness. No ecchymoses. No posterior calf tenderness bilaterally, homans sign negative bilaterally. Posterior tibialis and radial pulse +2 bilaterally. Sensation intact in upper and lower extremities. Full active ROM in upper and lower extremities, 5/5 stregnth. Plain film of the displayed previous surgery, no fracture seen. Patient placed in knee immobilizer, left ear with right lower extremity, which crutches. Patient follow with persistent [facility] surgeon perform surgery in 1-2 days. Pt not driving home. Patient will return to ER if condition worsens in anyway case discussed with Dr. Moe. Disposition Clinical Impression: Knee sprain, Fall Disposition: HOME SELF-CARE Condition: Stable Instructions (If sedation given, give patient instructions): Knee Sprain (ED) Additional Instructions: Patient to adhere to previously discussed treatment plan and will take medication(s) as directed. Patient to follow up with PCP in 1-2 days. Patient to return to ED if symptoms do not improve. Continuing to her knee immobilizer, do not bear weight and right lower extremity, use crutches. Follow-up with previously established orthopedic surgeon who performed surgery in 1-2 days. Follow up with primary care provider in 1-2 days. Return to ER if condition worsens in any way. Additional orthopedic consult provided if unable to follow up with previously established orthopedic surgeon. Is patient prescribed a controlled substance at d/c from ED?: No Referrals: Rashard Stock MD [Primary Care Provider] - 1-2 days Sanjay Escalante DO [Doctor of Osteopathic Medicine] - 1-2 days
--- NOTE | 2019-01-16 14:57 | XR ---
EXAMINATION TYPE: XR knee 4V LT DATE OF EXAM: 01/16/2019 COMPARISON: NONE HISTORY: Fall. Knee pain. TECHNIQUE: 4 views FINDINGS: I see no fracture nor dislocation. There is old ligament reconstructive surgery. There is s mall knee joint effusion. Joint spaces are fairly normal. IMPRESSION: Previous surgery. No fracture seen.
[2019-01-16] MEDS ORDERED: ACET/COD 300 MG/30 MG STARTER PACK 6 TAB BTL PO STA (15:13)
[2019-01-16 15:42] VITALS: BP 131/70; PULSE 78
== END 2019-01-16 15:41 | disposition home or self-care (01) ==
LOC: EC 13:46
DX: S83.91XA Sprain of unspecified site of right knee, initial encounter (principal); E07.9 Disorder of thyroid, unspecified; F90.9 Attention-deficit hyperactivity disorder, unspecified type; F32.9 Major depressive disorder, single episode, unspecified; F41.9 Anxiety disorder, unspecified; F17.200 Nicotine dependence, unspecified, uncomplicated; Z79.3 Long term (current) use of hormonal contraceptives; Z79.890 Hormone replacement therapy; Z79.899 Other long term (current) drug therapy; Z88.0 Allergy status to penicillin; Z88.2 Allergy status to sulfonamides; Z88.5 Allergy status to narcotic agent; Z88.8 Allergy status to other drugs, medicaments and biological substances; W17.2XXA Fall into hole, initial encounter; Y93.01 Activity, walking, marching and hiking; Y92.511 Restaurant or cafe as the place of occurrence of the external cause
CPT/HCPCS: 99284

== ENCOUNTER 2019-03-02 14:36 | Emergency (ER) | payer OTHER ==
[2019-03-02 14:41] VITALS: BP 128/77; TEMP 98.4
[2019-03-02] MEDS ORDERED: IPRATROPIUM-ALBUTEROL 3 ML NEB INHALATION STA (14:55)
--- NOTE | 2019-03-02 15:06 | ED ---
General Adult HPI - General Chief complaint: ENT Stated complaint: sore throat Time Seen by Provider: 03/02/19 14:42 Source: patient, RN notes reviewed Mode of arrival: ambulatory Limitations: no limitations - History of Present Illness Initial comments: 23-year-old female with a past medical history of GERD presents to the emergency department for a chief complaint of sore throat. Patient states she has had a sore throat for the past 12 hours. States this started late last night. It is painful to swallow but she denies any difficulty swallowing her saliva. Denies any fevers or chills. Does admit to a cough and feels a little wheezy but denies asthma or COPD. Patient does admit to being a daily smoker. Patient denies any significant shortness of breath.Patient has no other complaints at this time including shortness of breath, chest pain, abdominal pain, nausea or vomiting, headache, or visual changes. - Related Data Home Medications Medication Instructions Recorded Confirmed Levothyroxine Sodium [Synthroid] 150 mcg PO DAILY 12/03/16 09/03/18 ALPRAZolam [Xanax] 0.5 mg PO BID PRN 09/03/18 09/03/18 ARIPiprazole [Abilify] 2 mg PO BID 09/03/18 09/03/18 Dextroamphetamine/Amphetamine 10 mg PO BID 09/03/18 09/06/18 [Adderall] Etonogestrel/Ethinyl Estradiol 1 each VG DIRECTED 09/03/18 09/06/18 [Nuvaring Vaginal Ring] Previous Rx's Medication Instructions Recorded Cephalexin [Keflex] 500 mg PO Q6H #40 cap 12/11/18 Albuterol Inhaler [Ventolin Hfa 1 - 2 puff INHALATION Q6HR PRN #1 03/02/19 Inhaler] inhaler predniSONE 50 mg PO DAILY #5 tablet 03/02/19 Allergies Allergy/AdvReac Type Severity Reaction Status Date / Time morphine Allergy Rash/Hives Verified 01/16/19 13:49 Sulfa (Sulfonamide Allergy Rash/Hives Verified 01/16/19 13:49 Antibiotics) topiramate [From Topamax] Allergy Anaphylaxis Verified 01/16/19 13:49 Penicillins AdvReac Unknown Verified 01/16/19 13:49 Review of Systems ROS Statement: Those systems with pertinent positive or pertinent negative responses have been documented in the HPI. ROS Other: All systems not noted in ROS Statement are negative. Past Medical History Past Medical History: GERD/Reflux, Thyroid Disorder Additional Past Medical History / Comment(s): right sided abd. pain, diarrhea, N/V, gas, bloating for 3 months, states liver enlarged History of Any Multi-Drug Resistant Organisms: None Reported Past Surgical History: Breast Surgery, Orthopedic Surgery Additional Past Surgical History / Comment(s): childhood ear surgery, ACL repair right knee, facial reconstruction on the left side of her face due to a dog bite at age 1, breast biopsy Past Anesthesia/Blood Transfusion Reactions: No Reported Reaction Past Psychological History: ADD/ADHD, Anxiety, Depression Smoking Status: Current every day smoker Past Alcohol Use History: Occasional Past Drug Use History: Marijuana - Past Family History Mother Family Medical History: No Reported History General Exam Limitations: no limitations General appearance: alert, in no apparent distress Head exam: Present: atraumatic, normocephalic, normal inspection Eye exam: Present: normal appearance, PERRL, EOMI. Absent: scleral icterus, conjunctival injection, periorbital swelling ENT exam: Present: normal exam, normal oropharynx (Uvula is midline. No evidence for peritonsillar abscess. No exudates noted to the bilateral tonsils), mucous membranes moist, TM's normal bilaterally, normal external ear exam Neck exam: Present: normal inspection, full ROM. Absent: tenderness, meningismus, lymphadenopathy Respiratory exam: Present: normal lung sounds bilaterally. Absent: respiratory distress, wheezes, rales, rhonchi, stridor Cardiovascular Exam: Present: regular rate, normal rhythm, normal heart sounds. Absent: systolic murmur, diastolic murmur, rubs, gallop, clicks Neurological exam: Present: alert, oriented X3, CN II-XII intact Psychiatric exam: Present: normal affect, normal mood Course Vital Signs 03/02/19 03/02/19 03/02/19 14:38 15:12 15:21 Temperature 98.4 F Pulse Rate 92 61 74 Respiratory 18 18 16 Rate Blood Pressure 128/77 O2 Sat by Pulse 97 Oximetry - Reevaluation(s) Reevaluation #1: 03/02/19 15:37 Discussed smoking cessation with patient for greater than 3 minutes. Medical Decision Making - Medical Decision Making 23-year-old female with a past medical history of GERD presents to the emergency department for a chief complaint of sore throat 12 hours. States it started late last night. Denies any difficulty swallowing but does admit to pain and swelling. Denies fevers or chills. Denies any difficulty breathing. On exam patient is resting comfortably sleeping on her abdomen. No stridor or respiratory distress. Oropharynx is may be somewhat erythematous however no enlarged tonsils. No tonsillar exudates, uvula midline, no evidence for peritonsillar abscess. Patient does have mild wheezing noted of her bilateral lower lung jack and does admit to cough. Chest x-ray negative. Patient was given a breathing treatment, feeling much better, wheezing improved. Vitals are stable. Patient likely has a viral upper respiratory infection as strep was negative. However culture will be sent. Patient will be started on steroids for wheezing and given an inhaler. Recommended quitting smoking. Recommended following up with primary care in 1-2 days or returning here if she has any worsening symptoms. - Lab Data Lab Results 03/02/19 03/02/19 Range/Units 15:00 15:00 Urine HCG, Qual Not Detected (Not Detectd) Group A Strep Rapid Negative (Negative) Disposition Clinical Impression: Pharyngitis, Cough Disposition: HOME SELF-CARE Condition: Good Instructions (If sedation given, give patient instructions): Pharyngitis (ED), Acute Cough (ED) Additional Instructions: Please take prescription as directed. Please use inhaler as needed. Do not smoke. Follow-up with primary care in 1-2 days. Follow up on culture results from throat culture. Return to the emergency department for any worsening symptoms. Prescriptions: predniSONE 50 mg PO DAILY #5 tablet Albuterol Inhaler [Ventolin Hfa Inhaler] 1 - 2 puff INHALATION Q6HR PRN #1 inhaler PRN Reason: Shortness Of Breath Is patient prescribed a controlled substance at d/c from ED?: No Referrals: Rashard Stock MD [Primary Care Provider] - 1-2 days Time of Disposition: 15:36
--- NOTE | 2019-03-02 15:14 | XR ---
EXAMINATION TYPE: XR chest 2V DATE OF EXAM: 03/02/2019 COMPARISON: Chest x-ray August 03, 2018. HISTORY: Cough and wheeze. TECHNIQUE: Frontal and lateral views of the chest are obtained. FINDINGS: There is no focal air space opacity, pleural effusion, or pneumothorax seen. The cardiac silhouette size is within normal limits. The osseous structures are intact. IMPRESSION: No acute cardiopulmonary process. No significant change from prior.
[2019-03-02 15:21] VITALS: PULSE 74; RESP 16
== END 2019-03-02 15:50 | disposition home or self-care (01) ==
LOC: EC 14:36
DX: J02.9 Acute pharyngitis, unspecified (principal); R05 Cough; R06.2 Wheezing; K21.9 Gastro-esophageal reflux disease without esophagitis; F41.9 Anxiety disorder, unspecified; F32.9 Major depressive disorder, single episode, unspecified; F90.9 Attention-deficit hyperactivity disorder, unspecified type; E07.9 Disorder of thyroid, unspecified; F17.200 Nicotine dependence, unspecified, uncomplicated; Z79.3 Long term (current) use of hormonal contraceptives; Z79.890 Hormone replacement therapy; Z79.899 Other long term (current) drug therapy; Z88.0 Allergy status to penicillin; Z88.1 Allergy status to other antibiotic agents; Z88.5 Allergy status to narcotic agent; Z88.8 Allergy status to other drugs, medicaments and biological substances; Z71.6 Tobacco abuse counseling
CPT/HCPCS: 71046; 81025; 87081; 87430; 94640; 99283; 99406

== ENCOUNTER 2019-03-14 18:44 | Emergency (ER) | payer OTHER ==
[2019-03-14] MEDS ORDERED: SODIUM CHLORIDE 0.9% 500 ML 500 ML IV STA (20:01)
--- NOTE | 2019-03-14 20:12 | ED ---
General Adult HPI - General Chief complaint: Recheck/Abnormal Lab/Rx Stated complaint: Numbness face/arms/chest Time Seen by Provider: 03/14/19 19:36 Source: patient Mode of arrival: ambulatory Limitations: no limitations - History of Present Illness Initial comments: Patient is a 23-year-old female presenting to the emergency department with multiple chief complaints. Patient reports a history of ovarian cysts and reports today she developed "pain in the left ovary" that is located in the left lower quadrant and does not radiate anywhere. Patient reports the pain is constant and sharp in nature. Patient also reports she developed a tingling se nsation in her cheeks, hands and the chest. Patient denies any numbness or pain. Patient states that yesterday she placed her Nuvaring which caused onset of left lower quadrant. Patient reports she probably took it off and the pain is slightly improved but still remains. Patient denies any blurry vision, nausea, vomiting or diarrhea. Patient denies any fevers chills or night sweats. Patient denies any urinary or bowel symptoms. Patient denies any vaginal discharge or bleeding. Patient has a history of anxiety. - Related Data Home Medications Medication Instructions Recorded Confirmed Levothyroxine Sodium [Synthroid] 150 mcg PO DAILY 12/03/16 03/14/19 ALPRAZolam [Xanax] 0.5 mg PO BID PRN 09/03/18 03/14/19 ARIPiprazole [Abilify] 2 mg PO BID 09/03/18 03/14/19 Albuterol Inhaler [Ventolin Hfa 1 - 2 puff INHALATION RT-QID PRN 03/14/19 03/14/19 Inhaler] Dextroamphetamine/Amphetamine 15 mg PO BID 03/14/19 03/14/19 [Adderall] Allergies Allergy/AdvReac Type Severity Reaction Status Date / Time morphine Allergy Rash/Hives Verified 03/14/19 20:31 Sulfa (Sulfonamide Allergy Rash/Hives Verified 03/14/19 20:31 Antibiotics) topiramate [From Topamax] Allergy Anaphylaxis Verified 03/14/19 20:31 Penicillins AdvReac Unknown Verified 03/14/19 20:31 Review of Systems ROS Statement: Those systems with pertinent positive or pertinent negative responses have been documented in the HPI. ROS Other: All systems not noted in ROS Statement are negative. Past Medical History Past Medical History: GERD/Reflux, Thyroid Disorder Additional Past Medical History / Comment(s): right sided abd. pain, diarrhea, N/V, gas, bloating for 3 months, states liver enlarged History of Any Multi-Drug Resistant Organisms: None Reported Past Surgical History: Breast Surgery, Orthopedic Surgery Additional Past Surgical History / Comment(s): childhood ear surgery, ACL repair right knee, facial reconstruction on the left side of her face due to a dog bite at age 1, breast biopsy Past Anesthesia/Blood Transfusion Reactions: No Reported Reaction Past Psychological History: ADD/ADHD, Anxiety, Depression Smoking Status: Current every day smoker Past Alcohol Use History: Occasional Past Drug Use History: Marijuana - Past Family History Mother Family Medical History: No Reported History General Exam Limitations: no limitations General appearance: alert, in no apparent distress, obese Head exam: Present: atraumatic, normocephalic, normal inspection Eye exam: Present: normal appearance, PERRL, EOMI. Absent: conjunctival injection Pupils: Present: normal accommodation ENT exam: Present: normal exam, normal oropharynx, mucous membranes moist, TM's normal bilaterally, normal external ear exam Neck exam: Present: normal inspection, full ROM Respiratory exam: Present: normal lung sounds bilaterally Cardiovascular Exam: Present: regular rate, normal rhythm, normal heart sounds GI/Abdominal exam: Present: soft, tenderness (Left lower quadrant tenderness), normal bowel sounds. Absent: guarding, rebound, other (Negative McBurney point tenderness, negative Rovsing, negative obturator, negative Ibrahim) Extremities exam: Present: normal inspection, full ROM Back exam: Present: normal inspection, full ROM. Absent: CVA tenderness (R), CVA tenderness (L) Neurological exam: Present: alert, oriented X3 Psychiatric exam: Present: normal affect, normal mood Skin exam: Present: warm, intact, normal color Course Vital Signs 03/14/19 03/14/19 18:53 20:51 Temperature 98.5 F 98.5 F Pulse Rate 80 53 L Respiratory 18 17 Rate Blood Pressure 137/77 128/66 O2 Sat by Pulse 99 98 Oximetry Medical Decision Making - Medical Decision Making Patient is a 23-year-old female presenting to emergency Department with multiple chief complaints. CBC, CMP and UA are unremarkable. KUB showing hepatomegaly but the patient has a riding on that. Patient was offered a pelvic exam but she declined and said that she is going to follow up with primary care for further management. Patient's vitals are stable. Patient reports the pain has mostly resolved on reevaluation without any analgesics. I suspect the numbness and tingling to be transient feeling that his most of the associated with her anxiety. Strict return parameters were thoroughly discussed the patient was understanding and agreeable. Case discussed with physician. - Lab Data Result diagrams: 03/14/19 20:20 03/14/19 20:20 Lab Results 03/14/19 03/14/19 03/14/19 Range/Units 20:20 20:20 20:50 WBC 9.8 (3.8-10.6) k/uL RBC 5.03 (3.80-5.40) m/uL Hgb 14.4 (11.4-16.0) gm/dL Hct 42.2 (34.0-46.0) % MCV 83.8 (80.0-100.0) fL MCH 28.5 (25.0-35.0) pg MCHC 34.1 (31.0-37.0) g/dL RDW 13.2 (11.5-15.5) % Plt Count 409 (150-450) k/uL Neutrophils % 48 % Lymphocytes % 42 % Monocytes % 5 % Eosinophils % 4 % Basophils % 1 % Neutrophils # 4.7 (1.3-7.7) k/uL Lymphocytes # 4.1 (1.0-4.8) k/uL Monocytes # 0.5 (0-1.0) k/uL Eosinophils # 0.3 (0-0.7) k/uL Basophils # 0.1 (0-0.2) k/uL Sodium 140 (137-145) mmol/L Potassium 3.8 (3.5-5.1) mmol/L Chloride 106 (98-107) mmol/L Carbon Dioxide 23 (22-30) mmol/L Anion Gap 11 mmol/L BUN 10 (7-17) mg/dL Creatinine 0.80 (0.52-1.04) mg/dL Est GFR (CKD-EPI)AfAm >90 (>60 ml/min/1.73 sqM) Est GFR (CKD-EPI)NonAf >90 (>60 ml/min/1.73 sqM) Glucose 120 H (74-99) mg/dL Calcium 10.0 (8.4-10.2) mg/dL Total Bilirubin 0.6 (0.2-1.3) mg/dL AST 21 (14-36) U/L ALT 21 (9-52) U/L Alkaline Phosphatase 89 (38-126) U/L Total Protein 7.2 (6.3-8.2) g/dL Albumin 4.3 (3.5-5.0) g/dL Amylase 49 (30-110) U/L Lipase 106 (23-300) U/L Urine Color Yellow Urine Appearance Cloudy H (Clear) Urine pH 5.5 (5.0-8.0) Ur Specific [place] 1.024 (1.001-1.035) Urine Protein Trace H (Negative) Urine Glucose (UA) Negative (Negative) Urine Ketones Negative (Negative) Urine Blood Negative (Negative) Urine Nitrite Negative (Negative) Urine Bilirubin Negative (Negative) Urine Urobilinogen <2.0 (<2.0) mg/dL Ur Leukocyte Esterase Small H (Negative) Urine RBC 2 (0-5) /hpf Urine WBC 7 H (0-5) /hpf Ur Squamous Epith Cells 4 (0-4) /hpf Urine Mucus Few H (None) /hpf Disposition Clinical Impression: Abdominal pain Disposition: HOME SELF-CARE Condition: Stable Instructions (If sedation given, give patient instructions): Abdominal Pain (ED) Additional Instructions: Please follow up with primary care. Please follow up with neurology. Please return to emergency department if symptoms worsen. Is patient prescribed a controlled substance at d/c from ED?: No Referrals: Rashard Stock MD [Primary Care Provider] - 1-2 days Mehrdad Connelly DO [STAFF PHYSICIAN] - 1-2 days Time of Disposition: 21:43
--- NOTE | 2019-03-14 20:28 | XR ---
EXAMINATION TYPE: XR KUB, 2 views DATE OF EXAM: 03/14/2019 COMPARISON: 12/30/2018 HISTORY: Pain TECHNIQUE: 2 upright views FINDINGS: Visualized lung bases and pleural spaces are negative. The bowel gas pattern is normal. There is no pneumoperitoneum or pneumatosis. The liver extends caudally to a position inferior to the superior iliac crest. 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 The spleen m easures 13 cm longitudinal dimension, consistent with borderline splenomegaly. No acute skeletal findings. IMPRESSION: 1. Normal bowel examination. 2. Liver and spleen comments.
[2019-03-14 20:47] LABS: Basophils # (A) 0.1 k/uL (0-0.2); Basophils % (A) 1 %; Eosinophils # (A) 0.3 k/uL (0-0.7); Eosinophils % (A) 4 %; HCT 42.2 % (34.0-46.0); HGB 14.4 gm/dL (11.4-16.0); Lymphocytes # (A) 4.1 k/uL (1.0-4.8); Lymphocytes % (A) 42 %; MCH 28.5 pg (25.0-35.0); MCHC 34.1 g/dL (31.0-37.0); MCV 83.8 fL (80.0-100.0); Mean Platelet Volume 6.2; Monocytes # (A) 0.5 k/uL (0-1.0); Monocytes % (A) 5 %; Neutrophils # (A) 4.7 k/uL (1.3-7.7); Neutrophils % (A) 48 %; Platelet Count 409 k/uL (150-450); RBC 5.03 m/uL (3.80-5.40); RDW 13.2 % (11.5-15.5); WBC 9.8 k/uL (3.8-10.6)
[2019-03-14 20:57] LABS: ALT 21 U/L (9-52); AST 21 U/L (14-36); African American GFR (CKD) >90 (>60 ml/min/1.73 sqM); Albumin 4.3 g/dL (3.5-5.0); Alkaline Phosphatase 89 U/L (38-126); Amylase 49 U/L (30-110); Anion Gap 11 mmol/L; Blood Urea Nitrogen 10 mg/dL (7-17); Carbon Dioxide 23 mmol/L (22-30); Chloride 106 mmol/L (98-107); Glucose 120 mg/dL (74-99); Potassium 3.8 mmol/L (3.5-5.1); Sodium 140 mmol/L (137-145); Total Bilirubin 0.6 mg/dL (0.2-1.3); Total Protein 7.2 g/dL (6.3-8.2)
[2019-03-14 21:09] LABS: Appearance,Urine Cloudy (Clear); Bilirubin,Urine Negative (Negative); Blood,Urine Negative (Negative); Color,Urine Yellow; Glucose,Urine (UA) Negative (Negative); Ketones,Urine Negative (Negative); Leukocyte Esterase,Urine Small (Negative); Mucus,Urine Few /hpf; Nitrite,Urine Negative (Negative); PH, Urine 5.5 (5.0-8.0); Protein,Urine Trace (Negative); RBC,Urine 2 /hpf (0-5); Specific Gravity,Urine 1.024 (1.001-1.035); Squamous Epithelial Cell,Urine 4 /hpf (0-4); Urobilinogen,Urine <2.0 mg/dL (<2.0); WBC,Urine 7 /hpf (0-5)
[2019-03-14 22:03] VITALS: BP 130/90; PULSE 83; RESP 18; TEMP 97.8
== END 2019-03-14 22:05 | disposition home or self-care (01) ==
LOC: EC 18:44
DX: R16.0 Hepatomegaly, not elsewhere classified (principal); N94.89 Other specified conditions associated with female genital organs and menstrual cycle; R20.2 Paresthesia of skin; R20.0 Anesthesia of skin; E07.9 Disorder of thyroid, unspecified; F90.9 Attention-deficit hyperactivity disorder, unspecified type; F32.9 Major depressive disorder, single episode, unspecified; F17.200 Nicotine dependence, unspecified, uncomplicated; Z87.42 Personal history of other diseases of the female genital tract; Z88.5 Allergy status to narcotic agent; Z88.2 Allergy status to sulfonamides; Z88.8 Allergy status to other drugs, medicaments and biological substances; Z88.0 Allergy status to penicillin; Z53.29 Procedure and treatment not carried out because of patient's decision for other reasons; Z79.890 Hormone replacement therapy; Z79.899 Other long term (current) drug therapy
CPT/HCPCS: 36415; 74018; 80053; 81001; 81025; 82150; 83690; 85025; 96360; 99284

== ENCOUNTER 2019-05-12 19:16 | Emergency (ER) | payer OTHER ==
[2019-05-12 19:25] VITALS: RESP 18
[2019-05-12] MEDS ORDERED: PANTOPRAZOLE 40 MG/10 ML VIAL IVP STA (20:05)
[2019-05-12] MEDS ORDERED: ONDANSETRON 4 MG/2 ML VIAL IVP STA (20:05)
[2019-05-12] MEDS ORDERED: SODIUM CHLORIDE 0.9% 1,000 ML IV STA (20:05)
--- NOTE | 2019-05-12 20:56 | ED ---
Abdominal Pain HPI - General Chief Complaint: Abdominal Pain Stated Complaint: Vomiting blood, abd pain Time Seen by Provider: 05/12/19 19:54 Source: patient Mode of arrival: ambulatory Limitations: no limitations - History of Present Illness Initial Comments: Patient is a 23-year-old female presenting to the emergency department with a chief complaint of nausea vomiting diarrhea. Patient reports her symptoms started about 2 days ago after she ate roast beef. Patient reports onset of nausea with multiple episodes of vomiting since. Patient also reports burning epigastric pain that resembles her acid reflux. Patient reports decreased appetite. Patient reports taking Pepto-Bismol with minimal improvement. Patient denies hemoptysis, hematuria, hematochezia or melena. Patient reports it is low chance for . Although there is a possibility. Patient denies increased urgency frequency or dysuria. Patient denies any vaginal discharge or follow-up. Patient reports her last period was on April 23. - Related Data Home Medications Medication Instructions Recorded Confirmed Levothyroxine Sodium [Synthroid] 150 mcg PO DAILY 12/03/16 03/14/19 ALPRAZolam [Xanax] 0.5 mg PO BID PRN 09/03/18 03/14/19 ARIPiprazole [Abilify] 2 mg PO BID 09/03/18 03/14/19 Albuterol Inhaler [Ventolin Hfa 1 - 2 puff INHALATION RT-QID PRN 03/14/19 03/14/19 Inhaler] Dextroamphetamine/Amphetamine 15 mg PO BID 03/14/19 03/14/19 [Adderall] Previous Rx's Medication Instructions Recorded Loperamide [Imodium] 2 mg PO DAILY #10 capsule 05/12/19 Ondansetron Odt [Zofran Odt] 4 mg PO Q8HR PRN #10 tab 05/12/19 Pantoprazole Sodium [Protonix] 20 mg PO DAILY #10 tablet. 05/12/19 Allergies Allergy/AdvReac Type Severity Reaction Status Date / Time morphine Allergy Rash/Hives Verified 05/12/19 19:25 Sulfa (Sulfonamide Allergy Rash/Hives Verified 05/12/19 19:25 Antibiotics) topiramate [From Topamax] Allergy Anaphylaxis Verified 05/12/19 19:25 Penicillins AdvReac Unknown Verified 05/12/19 19:25 Review of Systems ROS Statement: Those systems with pertinent positive or pertinent negative responses have been documented in the HPI. ROS Other: All systems not noted in ROS Statement are negative. Past Medical History Past Medical History: GERD/Reflux, Thyroid Disorder Additional Past Medical History / Comment(s): right sided abd. pain, diarrhea, N/V, gas, bloating for 3 months, states liver enlarged History of Any Multi-Drug Resistant Organisms: None Reported Past Surgical History: Breast Surgery, Orthopedic Surgery Additional Past Surgical History / Comment(s): childhood ear surgery, ACL repair right knee, facial reconstruction on the left side of her face due to a dog bite at age 1, breast biopsy Past Anesthesia/Blood Transfusion Reactions: No Reported Reaction Past Psychological History: ADD/ADHD, Anxiety, Depression Smoking Status: Current every day smoker Past Alcohol Use History: Occasional Past Drug Use History: Marijuana - Past Family History Mother Family Medical History: No Reported History General Exam Limitations: no limitations General appearance: alert, in no apparent distress, obese Head exam: Present: atraumatic, normocephalic, normal inspection Eye exam: Present: normal appearance, PERRL, EOMI Pupils: Present: normal accommodation ENT exam: Present: normal exam, mucous membranes moist, normal external ear exam Neck exam: Present: normal inspection, full ROM Respiratory exam: Present: normal lung sounds bilaterally Cardiovascular Exam: Present: regular rate, normal rhythm, normal heart sounds GI/Abdominal exam: Present: soft, tenderness (Epigastric), normal bowel sounds. Absent: guarding, rebound, other (Negative Ibrahim sign, negative McBurney point tenderness) Extremities exam: Present: normal inspection, full ROM, normal capillary refill Back exam: Present: normal inspection, full ROM. Absent: CVA tenderness (R), CVA tenderness (L) Neurological exam: Present: alert, oriented X3 Psychiatric exam: Present: normal affect, normal mood Skin exam: Present: warm, intact, normal color Course Vital Signs 05/12/19 19:22 Temperature 98.1 F Pulse Rate 88 Respiratory 18 Rate Blood Pressure 132/80 O2 Sat by Pulse 99 Oximetry Medical Decision Making - Medical Decision Making Patient is a 23-year-old female presenting to the emergency department with a chief complaint of nausea vomiting and diarrhea. Patient reports this started about 3 days ago after eating roast beef. Patient does not have any fevers. Patient does have epigastric abdominal pain that feels like burning. Patient does have acid reflux. Patient was given fluids, Protonix and Zofran. On reevaluation patient reports the burning sensation has completely resolved. Patient reports the nausea has resolved as well. Laboratory work is unremarkable. No need for any imaging. I suspect the patient to have gastroenteritis. Patient states that she is ready to go home. Patient advised about the BRAT diet. Patient will also be discharged with protonic's Zofran and advised to drink lots of fluids. Strict return parameters were thoroughly discussed with patient was understanding and agreeable. Case discussed physician. - Lab Data Result diagrams: 05/12/19 20:51 05/12/19 20:51 Lab Results 05/12/19 05/12/19 05/12/19 Range/Units 20:51 20:51 20:51 WBC 9.5 (3.8-10.6) k/uL RBC 4.90 (3.80-5.40) m/uL Hgb 13.9 (11.4-16.0) gm/dL Hct 42.5 (34.0-46.0) % MCV 86.8 (80.0-100.0) fL MCH 28.5 (25.0-35.0) pg MCHC 32.8 (31.0-37.0) g/dL RDW 13.5 (11.5-15.5) % Plt Count 400 (150-450) k/uL Neutrophils % 44 % Lymphocytes % 43 % Monocytes % 4 % Eosinophils % 7 % Basophils % 1 % Neutrophils # 4.2 (1.3-7.7) k/uL Lymphocytes # 4.1 (1.0-4.8) k/uL Monocytes # 0.4 (0-1.0) k/uL Eosinophils # 0.6 (0-0.7) k/uL Basophils # 0.1 (0-0.2) k/uL Sodium 140 (137-145) mmol/L Potassium 3.9 (3.5-5.1) mmol/L Chloride 106 (98-107) mmol/L Carbon Dioxide 21 L (22-30) mmol/L Anion Gap 13 mmol/L BUN 8 (7-17) mg/dL Creatinine 0.67 (0.52-1.04) mg/dL Est GFR (CKD-EPI)AfAm >90 (>60 ml/min/1.73 sqM) Est GFR (CKD-EPI)NonAf >90 (>60 ml/min/1.73 sqM) Glucose 116 H (74-99) mg/dL Calcium 9.7 (8.4-10.2) mg/dL Total Bilirubin 0.2 (0.2-1.3) mg/dL AST 19 (14-36) U/L ALT 23 (9-52) U/L Alkaline Phosphatase 83 (38-126) U/L Total Protein 7.3 (6.3-8.2) g/dL Albumin 4.4 (3.5-5.0) g/dL Amylase 60 (30-110) U/L Lipase 121 (23-300) U/L Urine Color Urine Appearance (Clear) Urine pH (5.0-8.0) Ur Specific [place] (1.001-1.035) Urine Protein (Negative) Urine Glucose (UA) (Negative) Urine Ketones (Negative) Urine Blood (Negative) Urine Nitrite (Negative) Urine Bilirubin (Negative) Urine Urobilinogen (<2.0) mg/dL Ur Leukocyte Esterase (Negative) Urine RBC (0-5) /hpf Urine WBC (0-5) /hpf Ur Squamous Epith Cells (0-4) /hpf Calcium Oxalate Crystal (None) /hpf Urine HCG, Qual Not Detected (Not Detectd) 05/12/19 Range/Units 20:51 WBC (3.8-10.6) k/uL RBC (3.80-5.40) m/uL Hgb (11.4-16.0) gm/dL Hct (34.0-46.0) % MCV (80.0-100.0) fL MCH (25.0-35.0) pg MCHC (31.0-37.0) g/dL RDW (11.5-15.5) % Plt Count (150-450) k/uL Neutrophils % % Lymphocytes % % Monocytes % % Eosinophils % % Basophils % % Neutrophils # (1.3-7.7) k/uL Lymphocytes # (1.0-4.8) k/uL Monocytes # (0-1.0) k/uL Eosinophils # (0-0.7) k/uL Basophils # (0-0.2) k/uL Sodium (137-145) mmol/L Potassium (3.5-5.1) mmol/L Chloride (98-107) mmol/L Carbon Dioxide (22-30) mmol/L Anion Gap mmol/L BUN (7-17) mg/dL Creatinine (0.52-1.04) mg/dL Est GFR (CKD-EPI)AfAm (>60 ml/min/1.73 sqM) Est GFR (CKD-EPI)NonAf (>60 ml/min/1.73 sqM) Glucose (74-99) mg/dL Calcium (8.4-10.2) mg/dL Total Bilirubin (0.2-1.3) mg/dL AST (14-36) U/L ALT (9-52) U/L Alkaline Phosphatase (38-126) U/L Total Protein (6.3-8.2) g/dL Albumin (3.5-5.0) g/dL Amylase (30-110) U/L Lipase (23-300) U/L Urine Color Yellow Urine Appearance Cloudy H (Clear) Urine pH 5.0 (5.0-8.0) Ur Specific [place] 1.025 (1.001-1.035) Urine Protein Negative (Negative) Urine Glucose (UA) Negative (Negative) Urine Ketones Negative (Negative) Urine Blood Negative (Negative) Urine Nitrite Negative (Negative) Urine Bilirubin Negative (Negative) Urine Urobilinogen <2.0 (<2.0) mg/dL Ur Leukocyte Esterase Moderate H (Negative) Urine RBC 2 (0-5) /hpf Urine WBC <1 (0-5) /hpf Ur Squamous Epith Cells 14 H (0-4) /hpf Calcium Oxalate Crystal Many H (None) /hpf Urine HCG, Qual (Not Detectd) Disposition Clinical Impression: Nausea vomiting and diarrhea, Gastroenteritis Disposition: HOME SELF-CARE Condition: Stable Instructions (If sedation given, give patient instructions): Gastroenteritis (DC) Additional Instructions: Please follow BRAT diet. Please take prescribed medication as directed. Please follow up with primary care. Please return to emergency department if symptoms worsen. Please drink lots of fluids. Prescriptions: Ondansetron Odt [Zofran Odt] 4 mg PO Q8HR PRN #10 tab PRN Reason: Nausea Is patient prescribed a controlled substance at d/c from ED?: No Referrals: Rashard Stock MD [Primary Care Provider] - 1-2 days Time of Disposition: 21:59
[2019-05-12 21:03] LABS: Basophils # (A) 0.1 k/uL (0-0.2); Basophils % (A) 1 %; Eosinophils # (A) 0.6 k/uL (0-0.7); Eosinophils % (A) 7 %; HCT 42.5 % (34.0-46.0); HGB 13.9 gm/dL (11.4-16.0); Lymphocytes # (A) 4.1 k/uL (1.0-4.8); Lymphocytes % (A) 43 %; MCH 28.5 pg (25.0-35.0); MCHC 32.8 g/dL (31.0-37.0); MCV 86.8 fL (80.0-100.0); Mean Platelet Volume 6.2; Monocytes # (A) 0.4 k/uL (0-1.0); Monocytes % (A) 4 %; Neutrophils # (A) 4.2 k/uL (1.3-7.7); Neutrophils % (A) 44 %; Platelet Count 400 k/uL (150-450); RDW 13.5 % (11.5-15.5); WBC 9.5 k/uL (3.8-10.6)
[2019-05-12 21:11] LABS: ALT 23 U/L (9-52); AST 19 U/L (14-36); African American GFR (CKD) >90 (>60 ml/min/1.73 sqM); Albumin 4.4 g/dL (3.5-5.0); Alkaline Phosphatase 83 U/L (38-126); Amylase 60 U/L (30-110); Anion Gap 13 mmol/L; Blood Urea Nitrogen 8 mg/dL (7-17); Calcium 9.7 mg/dL (8.4-10.2); Carbon Dioxide 21 mmol/L (22-30); Chloride 106 mmol/L (98-107); Glucose 116 mg/dL (74-99); Potassium 3.9 mmol/L (3.5-5.1); Sodium 140 mmol/L (137-145); Total Bilirubin 0.2 mg/dL (0.2-1.3); Total Protein 7.3 g/dL (6.3-8.2)
[2019-05-12 21:13] LABS: Appearance,Urine Cloudy (Clear); Bilirubin,Urine Negative (Negative); Blood,Urine Negative (Negative); Calcium Oxalate Crystals,Urine Many /hpf; Color,Urine Yellow; Glucose,Urine (UA) Negative (Negative); Ketones,Urine Negative (Negative); Leukocyte Esterase,Urine Moderate (Negative); Nitrite,Urine Negative (Negative); Protein,Urine Negative (Negative); RBC,Urine 2 /hpf (0-5); Specific Gravity,Urine 1.025 (1.001-1.035); Squamous Epithelial Cell,Urine 14 /hpf (0-4); Urobilinogen,Urine <2.0 mg/dL (<2.0); WBC,Urine <1 /hpf (0-5)
[2019-05-12] MEDS ORDERED: ONDANSETRON 4 MG ODT STARTER PACK 2 TAB BTL PO STA (21:46)
[2019-05-12 22:22] VITALS: BP 108/53; PULSE 79; TEMP 98.2
== END 2019-05-12 22:22 | disposition home or self-care (01) ==
LOC: EC 19:16
DX: K52.9 Noninfective gastroenteritis and colitis, unspecified (principal); K21.9 Gastro-esophageal reflux disease without esophagitis; F90.9 Attention-deficit hyperactivity disorder, unspecified type; F41.9 Anxiety disorder, unspecified; F32.9 Major depressive disorder, single episode, unspecified; E07.9 Disorder of thyroid, unspecified; F17.200 Nicotine dependence, unspecified, uncomplicated; Z79.890 Hormone replacement therapy; Z79.899 Other long term (current) drug therapy; Z88.0 Allergy status to penicillin; Z88.2 Allergy status to sulfonamides; Z88.5 Allergy status to narcotic agent; Z88.8 Allergy status to other drugs, medicaments and biological substances
CPT/HCPCS: 36415; 80053; 82150; 83690; 85025; 81001; 81025; 99284; 96374; 96375; 96361; J2405; S0119; C9113

== ENCOUNTER 2019-10-12 12:36 | Emergency (ER) | payer OTHER ==
[2019-10-12 12:40] VITALS: RESP 18; TEMP 98
[2019-10-12 14:21] LABS: Appearance,Urine Clear (Clear); Bilirubin,Urine Negative (Negative); Blood,Urine Moderate (Negative); Color,Urine Yellow; Glucose,Urine (UA) Negative (Negative); Ketones,Urine Negative (Negative); Leukocyte Esterase,Urine Negative (Negative); Mucus,Urine Occasional /hpf; Nitrite,Urine Negative (Negative); Protein,Urine Trace (Negative); RBC,Urine <1 /hpf (0-5); Specific Gravity,Urine 1.028 (1.001-1.035); Squamous Epithelial Cell,Urine 3 /hpf (0-4); Urobilinogen,Urine <2.0 mg/dL (<2.0); WBC,Urine 3 /hpf (0-5)
--- NOTE | 2019-10-12 14:23 | US ---
EXAMINATION TYPE: Transabdominal DATE OF EXAM: 10/12/2019 2:14 PM COMPARISON: US 08/14/2019 CLINICAL HISTORY: pain. Bleeding EXAM PERFORMED: Transabdominal (TA) EXAM MEASUREMENTS: GESTATIONAL AGE / DATING Physician Established: Not yet established Dates by LMP: LMP unknown Dates by First Scan: No IUP seen at that time Dates by Current Scan for: (13 weeks/6 days) EDC: 04/12/2020 MATERNAL ANATOMY Uterus: 15.6 x 7.3 x 10.4 cm Right Ovary: 3.2 x 3.1 x 1.6 cm Left Ovary: 3.8 x 2.3 x 1.9 cm Post CDS / Adnexa: wnl Presence of free fluid: No Presence of corpus luteal cyst: No Presence of subchorionic bleed: Yes, measuring 4.4 x 1.4 x 4.5 cm GESTATION / SURVEY CRL: 7.8 cm (13 weeks/6 days) Heart Rate: 143 bpm Rhythm: Normal IUP: Live IUP Beta HcG (if available): Not available at this time IMPRESSION: Single live intrauterine with a sonographic age of 13 weeks and 6 days and alyson mated date of delivery of 04/12/2020. Subchorionic hemorrhage is seen measuring 4.4 x 1.4 x 4.5 cm.
--- NOTE | 2019-10-12 14:34 | ED ---
Female Urogenital HPI - General Chief complaint: OB/Uterine Contractions Stated complaint: 14 wks preg/vaginal bleeding Time Seen by Provider: 10/12/19 13:45 Source: patient, RN notes reviewed Mode of arrival: ambulatory Limitations: no limitations - History of Present Illness Initial comments: 24-year-old female presents emergency Department chief complaint of abdominal pain, bleeding and . She states she is about 14 weeks she is a [address] Llamas. Patient states that she started having heavy bleeding this morning. Patient states that this is a morbidly that she's had in the past. Denies any dysuria no hematuria denies any flank pain no other complaints. - Related Data Home Medications Medication Instructions Recorded Confirmed Levothyroxine Sodium [Synthroid] 150 mcg PO DAILY 12/03/16 03/14/19 ALPRAZolam [Xanax] 0.5 mg PO BID PRN 09/03/18 03/14/19 ARIPiprazole [Abilify] 2 mg PO BID 09/03/18 03/14/19 Albuterol Inhaler [Ventolin Hfa 1 - 2 puff INHALATION RT-QID PRN 03/14/19 03/14/19 Inhaler] Dextroamphetamine/Amphetamine 15 mg PO BID 03/14/19 03/14/19 [Adderall] Previous Rx's Medication Instructions Recorded Loperamide [Imodium] 2 mg PO DAILY #10 capsule 05/12/19 Ondansetron Odt [Zofran Odt] 4 mg PO Q8HR PRN #10 tab 05/12/19 Pantoprazole Sodium [Protonix] 20 mg PO DAILY #10 tablet. 05/12/19 Pnv No.95/Ferrous Fum/Folic AC 1 each PO DAILY #30 tablet 08/14/19 [ Multivitamin Tablet] Allergies Allergy/AdvReac Type Severity Reaction Status Date / Time morphine Allergy Rash/Hives Verified 10/12/19 12:40 Sulfa (Sulfonamide Allergy Rash/Hives Verified 10/12/19 12:40 Antibiotics) topiramate [From Topamax] Allergy Anaphylaxis Verified 10/12/19 12:40 Penicillins AdvReac Unknown Verified 10/12/19 12:40 Review of Systems ROS Statement: Those systems with pertinent positive or pertinent negative responses have been documented in the HPI. ROS Other: All systems not noted in ROS Statement are negative. Past Medical History Past Medical History: GERD/Reflux, Thyroid Disorder Additional Past Medical History / Comment(s): right sided abd. pain, diarrhea, N/V, gas, bloating for 3 months, states liver enlarged History of Any Multi-Drug Resistant Organisms: None Reported Past Surgical History: Breast Surgery, Orthopedic Surgery Additional Past Surgical History / Comment(s): childhood ear surgery, ACL repair right knee, facial reconstruction on the left side of her face due to a dog bite at age 1, breast biopsy Past Anesthesia/Blood Transfusion Reactions: No Reported Reaction Past Psychological History: ADD/ADHD, Anxiety, Depression Smoking Status: Current every day smoker Past Alcohol Use History: Occasional Past Drug Use History: Marijuana - Past Family History Mother Family Medical History: No Reported History General Exam Limitations: no limitations General appearance: alert, in no apparent distress Neck exam: Present: normal inspection. Absent: tenderness, meningismus, lymphadenopathy Respiratory exam: Present: normal lung sounds bilaterally. Absent: respiratory distress, wheezes, rales, rhonchi, stridor Cardiovascular Exam: Present: regular rate, normal rhythm, normal heart sounds. Absent: systolic murmur, diastolic murmur, rubs, gallop, clicks GI/Abdominal exam: Present: soft, normal bowel sounds. Absent: distended, tenderness, guarding, rebound, rigid Course Vital Signs 10/12/19 12:38 Temperature 98.0 F Pulse Rate 103 H Respiratory 18 Rate Blood Pressure 117/68 O2 Sat by Pulse 98 Oximetry Medical Decision Making - Medical Decision Making Patient's ultrasound shows subchorionic hemorrhage, otherwise single viable IUP. We may related to subchorionic bleeding otherwise threatened miscarriage at this time. Patient does not require RhoGAM. - Lab Data Lab Results 10/12/19 Range/Units 13:30 Urine Color Yellow Urine Appearance Clear (Clear) Urine pH 6.0 (5.0-8.0) Ur Specific [place] 1.028 (1.001-1.035) Urine Protein Trace H (Negative) Urine Glucose (UA) Negative (Negative) Urine Ketones Negative (Negative) Urine Blood Moderate H (Negative) Urine Nitrite Negative (Negative) Urine Bilirubin Negative (Negative) Urine Urobilinogen <2.0 (<2.0) mg/dL Ur Leukocyte Esterase Negative (Negative) Urine RBC <1 (0-5) /hpf Urine WBC 3 (0-5) /hpf Ur Squamous Epith Cells 3 (0-4) /hpf Urine Mucus Occasional H (None) /hpf Disposition Clinical Impression: Threatened miscarriage, Subchorionic hemorrhage Disposition: HOME SELF-CARE Condition: Stable Instructions (If sedation given, give patient instructions): Subchorionic Hemorrhage (ED) Additional Instructions: Please return to the Emergency Department if symptoms worsen or any other concerns. Is patient prescribed a controlled substance at d/c from ED?: No Referrals: Rashard Stock MD [Primary Care Provider] - 1-2 days Time of Disposition: 14:34
[2019-10-12 14:46] VITALS: BP 120/78; PULSE 87
== END 2019-10-12 14:46 | disposition home or self-care (01) ==
LOC: EC 12:36
DX: O20.0 Threatened abortion (principal); O20.8 Other hemorrhage in early pregnancy; O99.282 Endocrine, nutritional and metabolic diseases complicating pregnancy, second trimester; E07.9 Disorder of thyroid, unspecified; O99.342 Other mental disorders complicating pregnancy, second trimester; F32.9 Major depressive disorder, single episode, unspecified; F41.9 Anxiety disorder, unspecified; F90.9 Attention-deficit hyperactivity disorder, unspecified type; O99.332 Smoking (tobacco) complicating pregnancy, second trimester; F17.200 Nicotine dependence, unspecified, uncomplicated; Z88.0 Allergy status to penicillin; Z88.2 Allergy status to sulfonamides; Z88.5 Allergy status to narcotic agent; Z88.8 Allergy status to other drugs, medicaments and biological substances; Z79.890 Hormone replacement therapy; Z79.899 Other long term (current) drug therapy; Z87.19 Personal history of other diseases of the digestive system; Z3A.14 14 weeks gestation of pregnancy
CPT/HCPCS: 76801; 81001; 99284

== ENCOUNTER 2020-02-27 01:17 | Outpatient (CLI) | payer OTHER ==
[2020-02-27 02:49] VITALS: BP 127/64; PULSE 105; RESP 18; TEMP 97
--- NOTE | 2020-02-27 16:10 | P.MSEPDOC ---
Presenting Problems - Arrival Data Date of Arrival on Unit: 02/27/20 Time of Arrival on Unit: 01:17 Mode of Transport: Wheelchair - Complaint OB-Reason for Admission/Chief Complaint: Other Comment: low back pain, no cramping Medical History - Information : 5 Para: 3 Term: 3 : 0 Abortions: Spontaneous or Elective: 1 Number of Living Children: 3 - Gestational Age Gestational Age by YUMI (wks/days): 33 Weeks and 2 Days Review of Systems - Review of Systems Constitutional: No problems Breast: No problems ENT: No problems Cardiovascular: No problems Respiratory: No problems Gastrointestinal: No problems Genitourinary: No problems Musculoskeletal: No problems Neurological: No problems Skin: No problems Vital Signs - Temperature Temperature: 97.0 F Temperature Source: Temporal Artery Scan - Pulse Right Pulse Rate: 105 Pulse Assessment Method: Automatic Cuff - Respirations Respiratory Rate: 18 Oxygen Delivery Method: Room Air O2 Sat by Pulse Oximetry: 98 - Blood Pressure Right Arm Blood Pressure: 127/64 Blood Pressure Mean: 85 Blood Pressure Source: Automatic Cuff Medical Screen Scoring (Pre) - Cervical Exam Dilation: 0 cm = 0 Membranes: Intact - Uterine Contractions Frequency: N/A Duration: N/A Intensity: N/A - Maternal Vital Signs Maternal Temperature: N/A Maternal Blood Pressure: N/A Signs of Preeclampsia: N/A Maternal Respirations: N/A - Maternal Trauma Maternal Trauma: N/A - Assessment - Baby A Baseline FHR: 140 Heart Rate - NICHD Category: Category I (Normal) = 0 NST: Reactive Position: N/A Station: N/A - Total Score - Baby A Total Score - Baby A: 0 - Total Score - Baby B Total Score - Baby B: 0 - Total Score - Baby C Total Score - Baby C: 0 - Level of Risk - Baby A Level of Risk - Baby A: Low (0-5) - Level of Risk - Baby B Level of Risk - Baby B: Low (0-5) - Level of Risk - Baby C Level of Risk - Baby C: Low (0-5) Physician Notification (Pre) - Physician Notified Physician Notified Date: 02/27/20 Physician Notified Time: 02:42 New Order Received: Yes (discharge, to keep appt on ) Disposition - Disposition OB Disposition: Discharge to home Discharge Date: 02/27/20 Discharge Time: 02:44 I agree with the RN Medical Screening Exam: Yes Risk & Benefit of care provided described in d/c instruction: Yes Diagnosis: RELATED CONDITIONS, UNSPECIFIED, THIRD TRIMESTER
== END 2020-02-27 02:45 | disposition home or self-care (01) ==
LOC: FBPOP 01:17
PROVIDERS: ATTEND Obstetrics & Gynecology
DX: O26.93 Pregnancy related conditions, unspecified, third trimester (principal); Z3A.33 33 weeks gestation of pregnancy
CPT/HCPCS: 59025; G0463; 99213

== ENCOUNTER → 2020-03-06 | Outpatient (CLI) | payer OTHER ==
[2020-03-06 23:30] VITALS: BP 121/56; PULSE 90; RESP 18; TEMP 97
--- NOTE | 2020-03-11 10:53 | P.MSEPDOC ---
Presenting Problems - Arrival Data Date of Arrival on Unit: 03/06/20 Time of Arrival on Unit: 22:10 Mode of Transport: Wheelchair - Complaint OB-Reason for Admission/Chief Complaint: Possible Onset of Labor, Rule Out SROM Comment: spotting, leaking, cramping all day Medical History - Information : 5 Para: 3 Term: 3 : 0 Abortions: Spontaneous or Elective: 1 Number of Living Children: 3 - Gestational Age Gestational Age by YUMI (wks/days): 34 Weeks and 3 Days - History Complications: Smoker, Hx. Substance Abuse Comment: marijuana Review of Systems - Review of Systems Constitutional: No problems Breast: No problems ENT: No problems Cardiovascular: No problems Respiratory: No problems Gastrointestinal: No problems Genitourinary: No problems Musculoskeletal: No problems Neurological: No problems Skin: No problems Vital Signs - Temperature Temperature: 97.0 F Temperature Source: Temporal Artery Scan - Pulse Right Pulse Rate: 90 Pulse Assessment Method: Pulse Oximetry - Respirations Respiratory Rate: 18 Oxygen Delivery Method: Room Air O2 Sat by Pulse Oximetry: 97 - Blood Pressure Right Arm Blood Pressure: 121/56 Blood Pressure Mean: 77 Blood Pressure Source: Automatic Cuff Medical Screen Scoring (Pre) - Cervical Exam Dilation: Exam Deferred Effacement: Exam Deferred Membranes: Intact - Uterine Contractions Frequency: N/A Duration: N/A Intensity: N/A - Maternal Vital Signs Maternal Temperature: N/A Maternal Blood Pressure: N/A Signs of Preeclampsia: N/A Maternal Respirations: N/A - Maternal Trauma Maternal Trauma: N/A - Assessment - Baby A Baseline FHR: 150 Heart Rate - NICHD Category: Category I (Normal) = 0 NST: Reactive - Total Score - Baby A Total Score - Baby A: 0 - Total Score - Baby B Total Score - Baby B: 0 - Total Score - Baby C Total Score - Baby C: 0 - Level of Risk - Baby A Level of Risk - Baby A: Low (0-5) - Level of Risk - Baby B Level of Risk - Baby B: Low (0-5) - Level of Risk - Baby C Level of Risk - Baby C: Low (0-5) Physician Notification (Pre) - Physician Notified Physician Notified Date: 03/06/20 Physician Notified Time: 23:07 Disposition - Disposition OB Disposition: Discharge to home, Written follow up instructions reviewed Discharge Date: 03/06/20 Discharge Time: 23:25 I agree with the RN Medical Screening Exam: Yes Risk & Benefit of care provided described in d/c instruction: Yes Diagnosis: RELATED CONDITIONS, UNSPECIFIED, THIRD TRIMESTER
== END ==
LOC: FBPOP 22:10
PROVIDERS: ATTEND Obstetrics & Gynecology
DX: O26.93 Pregnancy related conditions, unspecified, third trimester (principal); Z3A.34 34 weeks gestation of pregnancy
CPT/HCPCS: 59025; 84112; G0463; 99213

== ENCOUNTER 2020-04-01 21:36 | Outpatient (CLI) | payer OTHER ==
[2020-04-01 23:32] VITALS: BP 115/56; PULSE 96; RESP 16; TEMP 97.1
--- NOTE | 2020-04-02 07:41 | P.MSEPDOC ---
Presenting Problems - Arrival Data Date of Arrival on Unit: 04/01/20 Time of Arrival on Unit: 21:36 Mode of Transport: Ambulatory - Complaint OB-Reason for Admission/Chief Complaint: Possible Onset of Labor, Pain Comment: Pain with contractions 02/16 on arrival Medical History - Information : 5 Para: 3 Term: 3 : 0 Abortions: Spontaneous or Elective: 1 Number of Living Children: 3 - Gestational Age Gestational Age by YUMI (wks/days): 38 Weeks and 1 Days - History Complications: Smoker, Other Comment: Bleeding during beginning of , Marijuana use. Review of Systems - Review of Systems Constitutional: No problems Breast: No problems ENT: No problems Cardiovascular: No problems Respiratory: No problems Gastrointestinal: No problems Genitourinary: No problems Musculoskeletal: No problems Neurological: No problems Skin: No problems Vital Signs - Temperature Temperature: 97.1 F Temperature Source: Temporal Artery Scan - Pulse Right Pulse Rate: 96 Pulse Assessment Method: Automatic Cuff - Respirations Respiratory Rate: 16 Oxygen Delivery Method: Room Air O2 Sat by Pulse Oximetry: 98 - Blood Pressure Right Arm Blood Pressure: 115/56 Blood Pressure Mean: 75 Blood Pressure Source: Automatic Cuff Medical Screen Scoring (Pre) - Cervical Exam Dilation: 1-3 cm = 1 Membranes: Intact - Uterine Contractions Frequency: > or = 36 weeks =2 Duration: > 40 seconds = 2 Intensity: N/A - Maternal Vital Signs Maternal Temperature: N/A Maternal Blood Pressure: N/A Signs of Preeclampsia: N/A Maternal Respirations: N/A - Maternal Trauma Maternal Trauma: N/A - Assessment - Baby A Baseline FHR: 140 Heart Rate - NICHD Category: Category I (Normal) = 0 NST: Reactive Position: N/A Station: N/A - Total Score - Baby A Total Score - Baby A: 5 - Total Score - Baby B Total Score - Baby B: 5 - Total Score - Baby C Total Score - Baby C: 5 - Level of Risk - Baby A Level of Risk - Baby A: Low (0-5) - Level of Risk - Baby B Level of Risk - Baby B: Low (0-5) - Level of Risk - Baby C Level of Risk - Baby C: Low (0-5) Physician Notification (Pre) - Physician Notified Physician Notified Date: 04/01/20 Physician Notified Time: 23:04 New Order Received: Yes - Notification Comment Comment: DC home Medical Screen Scoring (Post) - Cervical Exam Dilation: 1-3 cm = 1 Membranes: Intact - Uterine Contractions Frequency: > or = 36 weeks =2 Duration: > 40 seconds = 2 Intensity: N/A - Maternal Vital Signs Maternal Temperature: N/A Maternal Blood Pressure: N/A Signs of Preeclampsia: N/A Maternal Respirations: N/A - Pain Assessment Pain Scale Used: Numeric (1 - 10) Pain Intensity: 4 Pain Management Goal: 4 Pain Description: *Acute Pain Frequency: Intermittent Pain Aggravating Factors: Contractions Non-Pharmacological Interventions: Darkened Room, Distraction, Emotional/Spiritual Support, Inactivity, Relaxation Technique, Sitting - Maternal Trauma Maternal Trauma: N/A - Assessment - Baby A Heart Rate: 140 Heart Rate - NICHD Category: Category I (Normal) = 0 Position: N/A Station: N/A - Total Score Total Score - Baby A: 5 Total Score - Baby B: 5 Total Score - Baby C: 5 - Post Treatment Level of Risk Post Treatment Level of Risk - Baby A: Low (0-5) Post Treatment Level of Risk - Baby B: Low (0-5) Post Treatment Level of Risk - Baby C: Low (0-5) Disposition - Disposition OB Disposition: Discharge to home Discharge Date: 04/01/20 Discharge Time: 23:15 I agree with the RN Medical Screening Exam: Yes Risk & Benefit of care provided described in d/c instruction: Yes Diagnosis: PRIMARY INADEQUATE CONTRACTIONS
== END 2020-04-01 23:15 | disposition home or self-care (01) ==
LOC: FBPOP 21:36
PROVIDERS: ATTEND Obstetrics & Gynecology
DX: O62.9 Abnormality of forces of labor, unspecified (principal); Z3A.38 38 weeks gestation of pregnancy
CPT/HCPCS: 59025; G0463; 99213

== ENCOUNTER 2020-04-04 13:33 | Outpatient (CLI) | payer OTHER ==
[2020-04-04 15:13] VITALS: BP 118/56; PULSE 80; RESP 16; TEMP 96
== END 2020-04-04 15:00 | disposition home or self-care (01) ==
LOC: FBPOP 13:33
PROVIDERS: ATTEND Obstetrics & Gynecology
DX: O47.1 False labor at or after 37 completed weeks of gestation (principal); Z3A.38 38 weeks gestation of pregnancy
CPT/HCPCS: 59025; G0463; 99213

== ENCOUNTER 2020-04-10 20:22 | Outpatient (CLI) | payer OTHER ==
[2020-04-10 22:14] VITALS: BP 144/73; PULSE 93; RESP 16; TEMP 97.4
--- NOTE | 2020-04-26 12:24 | P.MSEPDOC ---
Presenting Problems - Arrival Data Date of Arrival on Unit: 04/10/20 Time of Arrival on Unit: 20:23 Mode of Transport: Ambulatory - Complaint OB-Reason for Admission/Chief Complaint: Possible Onset of Labor, Rule Out SROM Comment: Patient presents to triage with possible rupture of membranes at around 1830 this evening for clear fluid, states she has been jonny on and off all day around 4 minutes apart. Patient states she was 5 cm in the office today per Dr. Llamas Medical History - Information : 5 Para: 3 Term: 3 : 0 Abortions: Spontaneous or Elective: 1 Number of Living Children: 3 - Gestational Age Gestational Age by YUMI (wks/days): 39 Weeks and 3 Days Review of Systems - Review of Systems Constitutional: No problems Breast: No problems ENT: No problems Cardiovascular: No problems Respiratory: No problems Gastrointestinal: No problems Genitourinary: No problems Musculoskeletal: No problems Neurological: No problems Skin: No problems Vital Signs - Temperature Temperature: 97.4 F Temperature Source: Temporal Artery Scan - Pulse Pulse Oximetery Pulse Rate: 93 Pulse Assessment Method: Pulse Oximetry - Respirations Respiratory Rate: 16 Oxygen Delivery Method: Room Air - Blood Pressure Sitting Blood Pressure: 144/73 Blood Pressure Mean: 96 Blood Pressure Source: Automatic Cuff Medical Screen Scoring (Pre) - Cervical Exam Dilation: 4-7 cm = 2 Effacement: More than 50% = 2 Membranes: Intact - Uterine Contractions Frequency: > 5 minutes apart = 1 Duration: > 40 seconds = 2 Intensity: N/A - Maternal Vital Signs Maternal Temperature: N/A Maternal Blood Pressure: N/A Signs of Preeclampsia: N/A Maternal Respirations: N/A - Maternal Trauma Maternal Trauma: N/A - Assessment - Baby A Baseline FHR: 140 Heart Rate - NICHD Category: Category I (Normal) = 0 NST: Reactive Position: N/A Station: N/A - Total Score - Baby A Total Score - Baby A: 7 - Total Score - Baby B Total Score - Baby B: 7 - Total Score - Baby C Total Score - Baby C: 7 - Level of Risk - Baby A Level of Risk - Baby A: Medium (6-9) - Level of Risk - Baby B Level of Risk - Baby B: Medium (6-9) - Level of Risk - Baby C Level of Risk - Baby C: Medium (6-9) Physician Notification (Pre) - Physician Notified Physician Notified Date: 04/10/20 Physician Notified Time: 21:01 New Order Received: Yes - Notification Comment Comment: Orders given to recheck cervix in one hour as the cervical exam is the same as it was in the office this am. IF cervix remains unchanged discharge patient home with instructions, patient to keep induction appt for Disposition - Disposition OB Disposition: Discharge to home, Written follow up instructions reviewed Discharge Date: 04/10/20 Discharge Time: 22:00 I agree with the RN Medical Screening Exam: Yes Risk & Benefit of care provided described in d/c instruction: Yes Diagnosis: FALSE LABOR BEFORE 37 COMPLETED WEEKS OF GEST, THIRD TRI
== END 2020-04-10 22:00 | disposition home or self-care (01) ==
LOC: FBPOP 20:22
PROVIDERS: ATTEND Obstetrics & Gynecology
DX: O47.03 False labor before 37 completed weeks of gestation, third trimester (principal); Z3A.39 39 weeks gestation of pregnancy
CPT/HCPCS: 59025; 84112; G0463; 99213

== ENCOUNTER 2020-04-11 09:08 | Inpatient (IN) | payer OTHER ==
[2020-04-11] MEDS ORDERED: METHYLERGONOVINE 0.2 MG/ML 1 ML AMP IM PRN (09:20)
[2020-04-11] MEDS ORDERED: TERBUTALINE 1 MG/ML VIAL SQ PRN (09:20)
[2020-04-11] MEDS ORDERED: OXYTOCIN 10 UNIT/ML 1 ML VIAL IM PRN (09:20)
[2020-04-11] MEDS ORDERED: LIDOCAINE 0.5% (PF) 5 MG/ML (50 ML SDV) SQ PRN (09:20)
[2020-04-11] MEDS ORDERED: CARBOPROST TROMETHAMINE 250 MCG/ML 1 ML AMP IM PRN (09:20)
[2020-04-11] MEDS ORDERED: LACTATED RINGERS 1,000 ML IV SCH (09:30)
[2020-04-11] MEDS ORDERED: OXYTOCIN 30 UNITS/500 ML NS 30 UNIT in SALINE 1 500ML.BAG IV SCH (09:30)
[2020-04-11 09:34] LABS: Basophils % (A) 0 %; Eosinophils # (A) 0.2 k/uL (0-0.7); Eosinophils % (A) 2 %; HCT 36.6 % (34.0-46.0); Lymphocytes # (A) 2.9 k/uL (1.0-4.8); Lymphocytes % (A) 24 %; MCH 27.5 pg (25.0-35.0); MCHC 32.7 g/dL (31.0-37.0); MCV 83.9 fL (80.0-100.0); Mean Platelet Volume 6.9; Monocytes # (A) 0.5 k/uL (0-1.0); Monocytes % (A) 4 %; Neutrophils # (A) 8.2 k/uL (1.3-7.7); Neutrophils % (A) 68 %; Platelet Count 351 k/uL (150-450); Poikilocytosis Slight; RBC 4.36 m/uL (3.80-5.40); RDW 14.4 % (11.5-15.5)
[2020-04-11] MEDS ORDERED: SODIUM CHLORIDE 0.9% 100 ML BAG ONE (09:50)
[2020-04-11] MEDS ORDERED: fentaNYL (PF) 50 MCG/ML 5 ML AMP ONE (09:50)
[2020-04-11] MEDS ORDERED: ROPIVACAINE 5MG/ML 20ML VIAL ONE (09:50)
--- NOTE | 2020-04-11 13:18 | P.HPOB ---
History of Present Illness H&P Date: 04/11/20 Chief Complaint: Spontaneous rupture membranes This is a 24-year-old female 5 para 3 with an estimated date of confinement of 04/14/2020, estimated gestational age of 39-4/7 weeks, who presents to labor and delivery with complaints of spontaneous rupture of membranes with clear fluid at approximately 8 AM this morning. She has started to feel contractions since that time. care has been with Dr. Llamas and has been uncomplicated per patient. labs: Hepatitis B surface antigen-negative RPR-nonreactive Rubella-immune Blood type-A+ Antibody screen-negative HIV-nonreactive Hemoglobin-11.9 Random glucose-102 Group B streptococcus-negative History of positive chlamydia earlier in and test of cure negative. Obstetrical history: . History of 3 vaginal deliveries. History of 1 termination of . Gynecologic history: History of immediate treated during this . Social history: She is single. She is unemployed. Review of Systems Constitutional: Denies chills, Denies fever Eyes: denies blurred vision, denies pain Ears, nose, mouth and throat: Denies headache, Denies sore throat Cardiovascular: Denies chest pain, Denies shortness of breath Respiratory: Denies cough Gastrointestinal: Reports abdominal pain (Contractions) Genitourinary: Reports pelvic pain, Reports Musculoskeletal: Reports low back pain Integumentary: Denies pruritus, Denies rash Neurological: Denies numbness, Denies weakness Psychiatric: Reports anxiety Past Medical History Past Medical History: Asthma, GERD/Reflux, Thyroid Disorder History of Any Multi-Drug Resistant Organisms: None Reported Past Surgical History: Breast Surgery, Orthopedic Surgery Additional Past Surgical History / Comment(s): childhood ear surgery, ACL repair right knee, facial reconstruction on the left side of her face due to a dog bite at age 1, breast biopsy Past Anesthesia/Blood Transfusion Reactions: No Reported Reaction Past Psychological History: Anxiety Smoking Status: Current every day smoker Past Alcohol Use History: Occasional Additional Past Alcohol Use History / Comment(s): <5 cigs/day since age of 17 Past Drug Use History: None Reported - Past Family History Mother Family Medical History: No Reported History Medications and Allergies Home Medications Medication Instructions Recorded Confirmed Type Levothyroxine Sodium [Synthroid] 150 mcg PO DAILY 12/03/16 04/11/20 History Pnv No.95/Ferrous Fum/Folic AC 1 each PO DAILY #30 tablet 08/14/19 04/11/20 Rx [ Multivitamin Tablet] Allergies Allergy/AdvReac Type Severity Reaction Status Date / Time morphine Allergy Rash/Hives Verified 04/10/20 21:08 Sulfa (Sulfonamide Allergy Rash/Hives Verified 04/10/20 21:08 Antibiotics) topiramate [From Topamax] Allergy Anaphylaxis Verified 04/10/20 21:08 Penicillins AdvReac Nausea & Verified 04/10/20 21:08 Vomiting Exam Osteopathic Statement: *. No significant issues noted on an osteopathic structural exam other than those noted in the History and Physical/Consult. Vital Signs Temp Pulse Resp BP Pulse Ox 04/11/20 09:15 97.2 F L 88 18 111/60 97 Intake and Output 04/10/20 04/11/20 04/11/20 22:59 06:59 14:59 Other: Weight 119.748 kg HEENT: Within normal limits Heart: Regular rate and rhythm Lungs: Clear to auscultation bilaterally Abdomen: Cervix: On admission is 6-7 cm 60% -2 station. Positive amnisure was noted and clear fluid was noted. A fore bag was also palpated. heart tones: Reactive Contractions: Every 5 minutes Extremities: Negative Homans Results Result Diagrams: 04/11/20 09: Abnormal Lab Results - Last 24 Hours (Table) 04/11/20 Range/Units 09:20 WBC 12.0 H (3.8-10.6) k/uL Neutrophils # 8.2 H (1.3-7.7) k/uL Assessment and Plan (1) 39 weeks gestation of Current Visit: Yes Status: Acute Code(s): Z3A.39 - 39 WEEKS GESTATION OF Tea VENTURA SNOMED Code(s): 20547039 Plan: Admission for early active labor. Epidural anesthesia. Oxytocin augmentation of labor if necessary. Expectant management.
[2020-04-11] MEDS ORDERED: BENZOCAINE/MENTHOL SPRAY 1 GM/SPRAY AEROSOL TOPICAL PRN (14:32)
[2020-04-11] MEDS ORDERED: OXYTOCIN 20 UNITS/1000 ML NS 1,000 ML IV SCH (14:32)
[2020-04-11] MEDS ORDERED: diphenhydrAMINE 50 MG/ML 1 ML VIAL IVP PRN ×2 (14:32)
[2020-04-11] MEDS ORDERED: SIMETHICONE 80 MG CHEWABLE PO PRN (14:32)
[2020-04-11] MEDS ORDERED: diphenhydrAMINE 25 MG CAP PO PRN (14:32)
[2020-04-11] MEDS ORDERED: ZOLPIDEM 5 MG TAB PO PRN (14:32)
[2020-04-11] MEDS ORDERED: diphenhydrAMINE 50 MG CAP PO PRN (14:32)
[2020-04-11] MEDS ORDERED: LANOLIN CREAM 5 GM TUBE TOPICAL PRN (14:32)
[2020-04-11] MEDS ORDERED: HYDROCORTISONE 2.5% RECTAL CREAM 30 GM TUBE RECTAL PRN (14:32)
[2020-04-11] MEDS: IBUPROFEN 600 MG TAB PO PRN ×2 (15:16→21:26)
--- NOTE | 2020-04-11 17:02 | P.PROBDLV ---
Vaginal Delivery Note - . Vaginal Delivery Note: The patient progressed to complete dilation after oxytocin augmentation of labor and artificial rupture of membranes of the fore bag with clear fluid noted. She did receive epidural anesthesia. Once reaching complete, she began pushing. 's head came to a crown. With one further push the 's head delivered across the perineum in occiput anterior lie. She was encouraged to continue pushing. The 's shoulders delivered in a transverse lie and then the remainder the infant easily delivered and was placed on mother's abdomen. Nose and mouth were bulb suctioned. Cord was clamped and cut. Infant was taken to warmer for evaluation. A viable female was noted with scores of 9 at 1 minute and 9 at 5 minutes and weight was 8 lbs. 12 oz. Placenta delivered shortly thereafter, intact, with a three-vessel cord. Uterus contrac jim fairly well after oxytocin was given and uterine massage was carried out. Inspection of the perineum revealed a small first-degree laceration that was noted to be hemostatic. Therefore no stitching was performed. Estimated blood loss is approximately 150 mL's. Mother and are in stable condition.
[2020-04-11] MEDS: ACETAMINOPHEN TAB 325 MG TAB PO PRN (19:31)
[2020-04-11] MEDS: SENNOSIDES-DOCUSATE SODIUM 1 EACH TAB PO SCH (19:31)
[2020-04-12] MEDS: LEVOTHYROXINE 75 MCG TAB PO SCH (06:33)
[2020-04-12 06:38] LABS: Basophils % (A) 0 %; Eosinophils # (A) 0.3 k/uL (0-0.7); Eosinophils % (A) 2 %; HCT 33.5 % (34.0-46.0); HGB 10.7 gm/dL (11.4-16.0); Lymphocytes # (A) 3.9 k/uL (1.0-4.8); Lymphocytes % (A) 29 %; MCH 27.2 pg (25.0-35.0); Monocytes # (A) 0.7 k/uL (0-1.0); Monocytes % (A) 5 %; Neutrophils # (A) 8.4 k/uL (1.3-7.7); Neutrophils % (A) 62 %; Platelet Count 311 k/uL (150-450); Poikilocytosis Slight; RBC 3.94 m/uL (3.80-5.40); RDW 14.4 % (11.5-15.5); WBC 13.5 k/uL (3.8-10.6)
[2020-04-12] MEDS: ACETAMINOPHEN TAB 325 MG TAB PO PRN ×2 (07:41→23:25)
[2020-04-12] MEDS: SENNOSIDES-DOCUSATE SODIUM 1 EACH TAB PO SCH ×2 (07:41→21:10)
--- NOTE | 2020-04-12 09:15 | P.DS ---
Providers Date of admission: 04/11/20 09:08 Expected date of discharge: 04/12/20 Attending physician: Chana Llamas Primary care physician: Stated None - Discharge Diagnosis(es) (1) Normal vaginal delivery Current Visit: No Status: Acute Hospital Course: Patient presented with spontaneous rupture membranes at 39 weeks and 4 days. She underwent a normal vaginal delivery. Her course was uncomplicated. She'll be discharged home day #1 in stable condition to follow-up with me in 6 weeks. Plan - Discharge Summary New Discharge Prescriptions: New Naproxen Sodium [Anaprox DS] 550 mg PO Q12HR #30 tab No Action Levothyroxine Sodium [Synthroid] 150 mcg PO DAILY Pnv No.95/Ferrous Fum/Folic AC [ Multivitamin Tablet] 1 each PO DAILY #30 tablet Discharge Medication List Levothyroxine Sodium [Synthroid] 150 mcg PO DAILY 12/03/16 [History] Pnv No.95/Ferrous Fum/Folic AC [ Multivitamin Tablet] 1 each PO DAILY #30 tablet 08/14/19 [Rx] Naproxen Sodium [Anaprox DS] 550 mg PO Q12HR #30 tab 04/12/20 [Rx] Follow up Appointment(s)/Referral(s): Chana Llamas DO [Doctor of Osteopathic Medicine] - 6 Weeks Discharge Disposition: HOME SELF-CARE
[2020-04-12] MEDS: NAPROXEN 250 MG TAB PO SCH (15:45)
[2020-04-12] MEDS: PRENATAL VIT-IRON-FOLIC ACID 1 EACH CAP PO SCH (18:47)
[2020-04-12] MEDS ORDERED: NAPROXEN 250 MG TAB PO SCH (21:00)
[2020-04-13] MEDS: NAPROXEN 250 MG TAB PO SCH ×2 (03:29→16:29)
[2020-04-13] MEDS: ACETAMINOPHEN TAB 325 MG TAB PO PRN (07:33)
[2020-04-13] MEDS: SENNOSIDES-DOCUSATE SODIUM 1 EACH TAB PO SCH (07:33)
[2020-04-13] MEDS: LEVOTHYROXINE 75 MCG TAB PO SCH (07:34)
[2020-04-13 16:02] VITALS: BP 106/42; PULSE 76; RESP 18; TEMP 98.2
[2020-04-13] MEDS: PRENATAL VIT-IRON-FOLIC ACID 1 EACH CAP PO SCH (16:29)
== END 2020-04-13 16:31 | disposition home or self-care (01) | DRG 807 ==
LOC: 4FBP 09:08
PROVIDERS: ADMIT Obstetrics & Gynecology; ATTEND Obstetrics & Gynecology
PROC: 3E0R3BZ Introduction of Anesthetic Agent into Spinal Canal, Percutaneous Approach (ICD-10-PCS; principal; 2020-04-11)
PROC: 10E0XZZ Delivery of Products of Conception, External Approach (ICD-10-PCS; principal; 2020-04-11)
PROC: 00HU33Z Insertion of Infusion Device into Spinal Canal, Percutaneous Approach (ICD-10-PCS; principal; 2020-04-11)
DX: O99.62 Diseases of the digestive system complicating childbirth (principal); Z37.0 Single live birth; O99.284 Endocrine, nutritional and metabolic diseases complicating childbirth; O99.52 Diseases of the respiratory system complicating childbirth; O99.344 Other mental disorders complicating childbirth; O99.334 Smoking (tobacco) complicating childbirth; O70.0 First degree perineal laceration during delivery; Z3A.39 39 weeks gestation of pregnancy; J45.909 Unspecified asthma, uncomplicated; F41.9 Anxiety disorder, unspecified; F17.200 Nicotine dependence, unspecified, uncomplicated; E03.9 Hypothyroidism, unspecified; K21.9 Gastro-esophageal reflux disease without esophagitis; Z56.0 Unemployment, unspecified; Z79.890 Hormone replacement therapy; Z98.890 Other specified postprocedural states; Z88.5 Allergy status to narcotic agent; Z88.0 Allergy status to penicillin; Z88.2 Allergy status to sulfonamides; Z88.8 Allergy status to other drugs, medicaments and biological substances
CPT/HCPCS: 85025; 86850; 86900; 86901

== ENCOUNTER 2021-03-15 02:07 | Emergency (ER) | payer OTHER ==
[2021-03-15 02:12] VITALS: TEMP 98
[2021-03-15] MEDS: IBUPROFEN 400 MG TAB PO STA (03:36)
[2021-03-15] MEDS: HYDROcodone/APAP 5-325MG 1 EACH TAB PO STA (03:37)
--- NOTE | 2021-03-15 03:38 | XR ---
EXAMINATION TYPE: XR wrist complete LT DATE OF EXAM: 03/15/2021 COMPARISON: NONE HISTORY: Pain TECHNIQUE: 4 views FINDINGS: I see no fracture nor dislocation. Scaphoid bone is intact. Carpal joint spaces are normal. IMPRESSION: Negative left wrist exam. No fracture.
--- NOTE | 2021-03-15 04:21 | ED ---
Extremity Problem HPI - General Chief complaint: Extremity Problem,Nontraumatic Stated complaint: Chest Pain Time Seen by Provider: 03/15/21 02:14 Source: patient Mode of arrival: ambulatory - Related Data Home Medications Medication Instructions Recorded Confirmed Levothyroxine Sodium [Synthroid] 150 mcg PO DAILY 12/03/16 04/11/20 Previous Rx's Medication Instructions Recorded Pnv No.95/Ferrous Fum/Folic AC 1 each PO DAILY #30 tablet 08/14/19 [ Multivitamin Tablet] Naproxen Sodium [Anaprox DS] 550 mg PO Q12HR #30 tab 04/12/20 Ibuprofen [Motrin] 600 mg PO Q8HR PRN #20 tab 03/15/21 Methocarbamol [Robaxin-750] 750 mg PO TID PRN #30 tablet 03/15/21 Allergies Allergy/AdvReac Type Severity Reaction Status Date / Time morphine Allergy Rash/Hives Verified 03/15/21 02:12 Sulfa (Sulfonamide Allergy Rash/Hives Verified 03/15/21 02:12 Antibiotics) topiramate [From Topamax] Allergy Anaphylaxis Verified 03/15/21 02:12 Penicillins AdvReac Nausea & Verified 03/15/21 02:12 Vomiting Review of Systems ROS Statement: Those systems with pertinent positive or pertinent negative responses have been documented in the HPI. ROS Other: All systems not noted in ROS Statement are negative. Past Medical History Past Medical History: Asthma, GERD/Reflux, Thyroid Disorder Additional Past Medical History / Comment(s): right sided abd. pain, diarrhea, N/V, gas, bloating for 3 months, states liver enlarged History of Any Multi-Drug Resistant Organisms: None Reported Past Surgical History: Breast Surgery, Orthopedic Surgery Additional Past Surgical History / Comment(s): childhood ear surgery, ACL repair right knee, facial reconstruction on the left side of her face due to a dog bite at age 1, breast biopsy Past Anesthesia/Blood Transfusion Reactions: No Reported Reaction Past Psychological History: Anxiety Smoking Status: Current every day smoker Past Alcohol Use History: Occasional Past Drug Use History: None Reported - Past Family History Mother Family Medical History: No Reported History Course Vital Signs 03/15/21 02:08 Temperature 98 F Pulse Rate 98 Respiratory 18 Rate Blood Pressure 131/88 O2 Sat by Pulse 100 Oximetry Disposition Clinical Impression: Radiculopathy affecting upper extremity Disposition: HOME SELF-CARE Condition: Good Instructions (If sedation given, give patient instructions): Arm Pain (ED) Prescriptions: Ibuprofen [Motrin] 600 mg PO Q8HR PRN #20 tab PRN Reason: Pain Methocarbamol [Robaxin-750] 750 mg PO TID PRN #30 tablet PRN Reason: pain Is patient prescribed a controlled substance at d/c from ED?: No Referrals: Nnamdi Hernández MD [Primary Care Provider] - 1-2 days
[2021-03-15 04:36] VITALS: BP 125/81; PULSE 88; RESP 16
== END 2021-03-15 04:30 | disposition home or self-care (01) ==
LOC: EC 02:07
DX: M54.10 Radiculopathy, site unspecified (principal); R07.9 Chest pain, unspecified
CPT/HCPCS: 93005; 99285

== ENCOUNTER 2022-05-25 16:09 | Emergency (ER) | payer OTHER ==
[2022-05-25 16:52] VITALS: BP 122/78; PULSE 88; RESP 16; TEMP 98.2
[2022-05-25] MEDS ORDERED: KETOROLAC 15 MG/ML 1 ML VIAL IM STA (17:31)
[2022-05-25] MEDS ORDERED: SODIUM CHLORIDE 0.9% 1,000 ML IV STA (17:31)
--- NOTE | 2022-05-25 17:58 | US ---
EXAMINATION TYPE: US venous doppler duplex LE RT DATE OF EXAM: 05/25/2022 5:47 PM COMPARISON: NONE CLINICAL HISTORY: pain. Pt states right leg stiffness, no known prior DVT SIDE PERFORMED: Right TECHNIQUE: The lower extremity deep venous system is examined utilizing real time linear array sonog chepe with graded compression, doppler sonography and color-flow sonography. VESSELS IMAGED: Common Femoral Vein Deep Femoral Vein Greater Saphenous Vein * Femoral Vein Popliteal Vein Small Saphenous Vein * Proximal Calf Veins (* superficial vessels) Right Leg: Negative for DVT Grayscale, color doppler, spectral doppler imaging performed of the deep veins of the lower extremiti es. There is normal flow, compressibility, vascular waveforms. IMPRESSION: No evidence of right lower extremity deep vein thrombosis.
--- NOTE | 2022-05-25 18:02 | XR ---
EXAMINATION TYPE: XR chest 2V DATE OF EXAM: 05/25/2022 5:57 PM COMPARISON: Chest x-ray 03/02/2019 TECHNIQUE: XR chest 2V . CLINICAL INDICATION:Female, 26 years old with history of Chest Pain; FINDINGS: Lungs/Pleura: There is no evidence of pleural effusion, focal consolidation, or pneumothorax. Pulmonary vascularity: Unremarkable. Heart/mediastinum: Cardiomediastinal silhouette is unremarkable. Musculoskeletal: No acute osseous pathology. IMPRESSION: No acute cardiopulmonary disease/process.
[2022-05-25 18:04] LABS: Basophils # (A) 0.1 k/uL (0-0.2); Basophils % (A) 1 %; Eosinophils # (A) 0.5 k/uL (0-0.7); Eosinophils % (A) 5 %; HGB 14.6 gm/dL (11.4-16.0); Lymphocytes # (A) 4.7 k/uL (1.0-4.8); Lymphocytes % (A) 45 %; MCHC 33.2 g/dL (31.0-37.0); MCV 84.5 fL (80.0-100.0); Mean Platelet Volume 7.3; Monocytes # (A) 0.4 k/uL (0-1.0); Monocytes % (A) 4 %; Neutrophils # (A) 4.5 k/uL (1.3-7.7); Neutrophils % (A) 44 %; Platelet Count 422 k/uL (150-450); RBC 5.21 m/uL (3.80-5.40); RDW 13.7 % (11.5-15.5); WBC 10.3 k/uL (3.8-10.6)
[2022-05-25] MEDS ORDERED: KETOROLAC 15 MG/ML 1 ML VIAL IVP STA (18:04)
[2022-05-25 18:15] LABS: ALT 20 U/L (4-34); AST 18 U/L (14-36); African American GFR (CKD) >90 (>60 ml/min/1.73 sqM); Alkaline Phosphatase 95 U/L (38-126); Anion Gap 14 mmol/L; Blood Urea Nitrogen 10 mg/dL (7-17); Calcium 9.7 mg/dL (8.4-10.2); Carbon Dioxide 23 mmol/L (22-30); Chloride 104 mmol/L (98-107); Glucose 105 mg/dL (74-99); Magnesium 2.1 mg/dL (1.6-2.3); Non-African American GFR(CKD) >90 (>60 ml/min/1.73 sqM); Sodium 141 mmol/L (137-145); Total Bilirubin 0.3 mg/dL (0.2-1.3)
[2022-05-25 18:19] LABS: INR 0.9 (<1.2); Prothrombin Time 9.6 sec (9.0-12.0)
--- NOTE | 2022-05-25 18:48 | ED ---
Extremity Problem HPI - General Chief complaint: Extremity Problem,Nontraumatic Stated complaint: Stiff Right Leg Time Seen by Provider: 05/25/22 16:55 Source: patient Mode of arrival: ambulatory Limitations: no limitations - History of Present Illness Initial comments: Patient is a 26-year-old female who presents to the emergency department with a chief complaint of right thigh pain. Patient describes it as a stiffness in her right thigh. States this is been occurring intermittently since she had her baby in September. Today she noticed stiffness behind her right knee as well. She took Motrin this morning with some relief. She denies leg swelling, tingling, numbness.. Denies history of DVT and PE. Denies family history of DVT and PE. She currently takes control via combination pill. She denies recent airplane travel and long car rides. Patient also mentions intermittent palpitations. Patient states the palpitations have been occurring intermittently for several years however she has been feeling them more lately. She has never seen a grey roll man or had this issue evaluated. She denies lightheadedness, dizziness, chest pain, shortness of breath, abdominal pain. Reports drinking one cup of coffee a day and denies other caffeine use. Denies illicit drug use. - Related Data Home Medications Medication Instructions Recorded Confirmed Levothyroxine Sodium [Synthroid] 150 mcg PO DAILY 12/03/16 05/25/22 Previous Rx's Medication Instructions Recorded Cyclobenzaprine [Flexeril] 5 mg PO HS PRN #7 tablet 05/25/22 Ketorolac [Toradol] 10 mg PO Q8HR PRN #15 tab 05/25/22 Allergies Allergy/AdvReac Type Severity Reaction Status Date / Time morphine Allergy Rash/Hives Verified 05/25/22 17:49 Sulfa (Sulfonamide Allergy Rash/Hives Verified 05/25/22 17:49 Antibiotics) topiramate [From Topamax] Allergy Anaphylaxis Verified 05/25/22 17:49 Penicillins AdvReac Nausea & Verified 05/25/22 17:49 Vomiting Review of Systems ROS Statement: Those systems with pertinent positive or pertinent negative responses have been documented in the HPI. ROS Other: All systems not noted in ROS Statement are negative. Past Medical History Past Medical History: Asthma, GERD/Reflux, Thyroid Disorder Additional Past Medical History / Comment(s): right sided abd. pain, diarrhea, N /V, gas, bloating for 3 months, states liver enlarged History of Any Multi-Drug Resistant Organisms: None Reported Past Surgical History: Breast Surgery, Orthopedic Surgery Additional Past Surgical History / Comment(s): childhood ear surgery, ACL repair right knee, facial reconstruction on the left side of her face due to a dog bite at age 1, breast biopsy Past Anesthesia/Blood Transfusion Reactions: No Reported Reaction Past Psychological History: ADD/ADHD, Anxiety, Depression Smoking Status: Current every day smoker Past Alcohol Use History: None Reported Past Drug Use History: None Reported - Past Family History Mother Family Medical History: No Reported History General Exam Limitations: no limitations General appearance: alert, in no apparent distress Head exam: Present: atraumatic, normocephalic, normal inspection Eye exam: Present: normal appearance, PERRL, EOMI. Absent: scleral icterus, conjunctival injection, periorbital swelling Respiratory exam: Present: normal lung sounds bilaterally. Absent: respiratory distress, wheezes, rales, rhonchi, stridor Cardiovascular Exam: Present: regular rate, normal rhythm, normal heart sounds. Absent: systolic murmur, diastolic murmur, rubs, gallop, clicks Right Hip exam: Present: normal inspection, full ROM. Absent: tenderness, swelling Upper Leg exam: Present: normal inspection, full ROM, tenderness (posterior thigh). Absent: swelling, abrasion, laceration, ecchymosis, erythema Knee exam: Present: normal inspection, full ROM. Absent: tenderness, swelling, abrasion, laceration, ecchymosis, erythema, effusion Lower Leg exam: Present: normal inspection, full ROM, tenderness (calf), Homans' sign. Absent: swelling, abrasion, ecchymosis Ankle exam: Present: normal inspection, full ROM. Absent: tenderness, swelling Foot/Toe exam: Present: normal inspection, full ROM. Absent: tenderness, swelling Neurovascular tendon exam: Present: no vascular compromise. Absent: abnormal cap refill, pallor, foot drop Gait: observed and normal Course Vital Signs 05/25/22 16:47 Temperature 98.2 F Pulse Rate 88 Respiratory 16 Rate Blood Pressure 122/78 O2 Sat by Pulse 99 Oximetry Medical Decision Making - Medical Decision Making This is a 26-year-old female presenting with right thigh stiffness and intermittent palpitations. Homans sign present in right lower extremity. Patient was placed on secured entrance monitor. EKG shows sinus rhythm with no ST segment elevation or depression. There are lead III T-wave inversions which appear new compared to old EKG. Laboratory studies obtained and are unremarkable. Troponin within normal limits. She does not have chest pain. Ultrasound with Doppler of right lower extremity is negative for DVT. Patient given Toradol which improved pain. During patient's stay I did observe intermittent episodes of PVCs with bigeminy. Heart rate controlled. Results discussed with patient. Patient will be discharged with referral to [facility] roll [facility]. Return parameters discussed. Patient verbalizes understanding and is agreeable with plan. Dr. Stark is my attending. - Lab Data Result diagrams: 05/25/22 17:50 05/25/22 17:50 Lab Results 05/25/22 05/25/22 05/25/22 Range/Units 17:50 17:50 17:50 WBC 10.3 (3.8-10.6) k/uL RBC 5.21 (3.80-5.40) m/uL Hgb 14.6 (11.4-16.0) gm/dL Hct 44.0 (34.0-46.0) % MCV 84.5 (80.0-100.0) fL MCH 28.0 (25.0-35.0) pg MCHC 33.2 (31.0-37.0) g/dL RDW 13.7 (11.5-15.5) % Plt Count 422 (150-450) k/uL MPV 7.3 Neutrophils % 44 % Lymphocytes % 45 % Monocytes % 4 % Eosinophils % 5 % Basophils % 1 % Neutrophils # 4.5 (1.3-7.7) k/uL Lymphocytes # 4.7 (1.0-4.8) k/uL Monocytes # 0.4 (0-1.0) k/uL Eosinophils # 0.5 (0-0.7) k/uL Basophils # 0.1 (0-0.2) k/uL PT 9.6 (9.0-12.0) sec INR 0.9 (<1.2) APTT 24.0 (22.0-30.0) sec D-Dimer 0.27 (<0.60) mg/L FEU Sodium 141 (137-145) mmol/L Potassium 4.0 (3.5-5.1) mmol/L Chloride 104 (98-107) mmol/L Carbon Dioxide 23 (22-30) mmol/L Anion Gap 14 mmol/L BUN 10 (7-17) mg/dL Creatinine 0.79 (0.52-1.04) mg/dL Est GFR (CKD-EPI)AfAm >90 (>60 ml/min/1.73 sqM) Est GFR (CKD-EPI)NonAf >90 (>60 ml/min/1.73 sqM) Glucose 105 H (74-99) mg/dL Calcium 9.7 (8.4-10.2) mg/dL Magnesium 2.1 (1.6-2.3) mg/dL Total Bilirubin 0.3 (0.2-1.3) mg/dL AST 18 (14-36) U/L ALT 20 (4-34) U/L Alkaline Phosphatase 95 (38-126) U/L Troponin I (0.000-0.034) ng/mL Total Protein 8.0 (6.3-8.2) g/dL Albumin 5.0 (3.5-5.0) g/dL 05/25/22 Range/Units 17:50 WBC (3.8-10.6) k/uL RBC (3.80-5.40) m/uL Hgb (11.4-16.0) gm/dL Hct (34.0-46.0) % MCV (80.0-100.0) fL MCH (25.0-35.0) pg MCHC (31.0-37.0) g/dL RDW (11.5-15.5) % Plt Count (150-450) k/uL MPV Neutrophils % % Lymphocytes % % Monocytes % % Eosinophils % % Basophils % % Neutrophils # (1.3-7.7) k/uL Lymphocytes # (1.0-4.8) k/uL Monocytes # (0-1.0) k/uL Eosinophils # (0-0.7) k/uL Basophils # (0-0.2) k/uL PT (9.0-12.0) sec INR (<1.2) APTT (22.0-30.0) sec D-Dimer (<0.60) mg/L FEU Sodium (137-145) mmol/L Potassium (3.5-5.1) mmol/L Chloride (98-107) mmol/L Carbon Dioxide (22-30) mmol/L Anion Gap mmol/L BUN (7-17) mg/dL Creatinine (0.52-1.04) mg/dL Est GFR (CKD-EPI)AfAm (>60 ml/min/1.73 sqM) Est GFR (CKD-EPI)NonAf (>60 ml/min/1.73 sqM) Glucose (74-99) mg/dL Calcium (8.4-10.2) mg/dL Magnesium (1.6-2.3) mg/dL Total Bilirubin (0.2-1.3) mg/dL AST (14-36) U/L ALT (4-34) U/L Alkaline Phosphatase (38-126) U/L Troponin I <0.012 (0.000-0.034) ng/mL Total Protein (6.3-8.2) g/dL Albumin (3.5-5.0) g/dL - EKG Data EKG Comments: EKG taken at 16:57 Sinus rhythm, no ST segment elevation or depression. new T-wave inversions in lead III Ventricular rate 75 AZ interval 153 QRS duration 83 QTC 415 Disposition Clinical Impression: Intermittent palpitations, Right thigh pain Disposition: HOME SELF-CARE Condition: Good Instructions (If sedation given, give patient instructions): Heart Palpitations (ED), Musculoskeletal Pain (ED), Premature Ventricular Contractions (ED) Additional Instructions: Take medication as directed. Do not drink alcohol or operate machinery while taking Flexeril as it can make you sleepy. Please follow up with cardiology in the morning regarding palpitations and premature ventricular contractions today. Follow-up with primary care provider regarding leg pain. Return to the emergency department if you experience new, concerning, or worsening symptoms. Prescriptions: Cyclobenzaprine [Flexeril] 5 mg PO HS PRN #7 tablet PRN Reason: Muscle Spasm Ketorolac [Toradol] 10 mg PO Q8HR PRN #15 tab PRN Reason: Pain Is patient prescribed a controlled substance at d/c from ED?: No Referrals: Eduardo Herrera MD [Primary Care Provider] - 1-2 days Jordan Calixto MD [STAFF PHYSICIAN] - 1-2 days
== END 2022-05-25 19:12 | disposition home or self-care (01) ==
LOC: EC 16:09
DX: R00.2 Palpitations (principal); M79.651 Pain in right thigh; J45.909 Unspecified asthma, uncomplicated; K21.9 Gastro-esophageal reflux disease without esophagitis; E07.9 Disorder of thyroid, unspecified; F90.9 Attention-deficit hyperactivity disorder, unspecified type; F32.A Depression, unspecified; F41.9 Anxiety disorder, unspecified; F17.200 Nicotine dependence, unspecified, uncomplicated; Z79.890 Hormone replacement therapy; Z88.2 Allergy status to sulfonamides; Z88.0 Allergy status to penicillin; Z88.8 Allergy status to other drugs, medicaments and biological substances; Z79.899 Other long term (current) drug therapy
CPT/HCPCS: 36415; 93005; 85379; 80053; 83735; 84484; 85025; 85610; 85730; 71046; 93971; 99284; 96374; 96361; J1885

== ENCOUNTER 2023-04-25 18:24 | Inpatient (IN) | payer OTHER ==
[2023-04-25] MEDS: LACTATED RINGERS 1,000 ML IV SCH (18:45)
[2023-04-25 19:24] LABS: Basophils # (A) 0.1 k/uL (0-0.2); Basophils % (A) 0 %; Eosinophils # (A) 0.2 k/uL (0-0.7); Eosinophils % (A) 1 %; HCT 40.2 % (34.0-46.0); HGB 13.1 gm/dL (11.4-16.0); Hypochromasia Slight; Lymphocytes # (A) 2.4 k/uL (1.0-4.8); Lymphocytes % (A) 16 %; MCH 30.7 pg (25.0-35.0); MCHC 32.7 g/dL (31.0-37.0); MCV 93.7 fL (80.0-100.0); Mean Platelet Volume 8.1; Monocytes # (A) 0.4 k/uL (0-1.0); Monocytes % (A) 3 %; Neutrophils # (A) 11.5 k/uL (1.3-7.7); Neutrophils % (A) 79 %; Platelet Count 279 k/uL (150-450); RBC 4.29 m/uL (3.80-5.40); WBC 14.7 k/uL (3.8-10.6)
--- NOTE | 2023-04-25 19:40 | US ---
EXAMINATION TYPE: US OB limited DATE OF EXAM: 04/25/2023 COMPARISON: NONE CLINICAL INDICATION: Female, 27 years old with history of bleeding; bleeding EXAM PERFORMED: Transabdominal (TA) GESTATIONAL AGE / DATING Physician Established: (38 weeks/4 days) EDC: 05/05/2023 No growth performed on today?s study per ordering physician SURVEY PLACENTA: Anterior PREVIA: No Previa Ultrasound evidence of abruption? No CODY: 4.35 cm oligo Ultrasound evidence of premature rupture of membranes? no (Tech?if abnormal transabdominally?image transvaginally to substantiate abnormality.) PRESENTATION: Vertex HEART RATE: 165 bpm RHYTHM: Normal IMPRESSION: Oligohydramnios.
[2023-04-25 20:03] VITALS: RESP 16
[2023-04-25] MEDS: OXYTOCIN 30 UNITS/500 ML NS 30 UNIT in SALINE 1 500ML.BAG IV SCH ×2 (21:51→22:18)
[2023-04-25] MEDS ORDERED: miSOPROStoL 200 MCG TAB PO PRN (22:18)
[2023-04-25] MEDS ORDERED: OXYTOCIN 10 UNIT/ML 1 ML VIAL IM PRN (22:18)
[2023-04-25] MEDS ORDERED: LIDOCAINE 0.5% (PF) 5 MG/ML (50 ML SDV) SQ PRN (22:18)
[2023-04-25] MEDS ORDERED: CARBOPROST TROMETHAMINE 250 MCG/ML 1 ML AMP IM PRN (22:18)
[2023-04-25] MEDS ORDERED: METHYLERGONOVINE 0.2 MG/ML 1 ML AMP IM PRN (22:18)
[2023-04-25] MEDS ORDERED: TERBUTALINE 1 MG/ML VIAL SQ PRN (22:18)
[2023-04-25] MEDS ORDERED: TRANEXAMIC 1,000 MG/100ML-NACL 1,000 MG in EMPTY BAG 1 BAG IV PRN (22:18)
[2023-04-26] MEDS ORDERED: LANOLIN CREAM 5 GM TUBE TOPICAL PRN (01:27)
[2023-04-26] MEDS ORDERED: diphenhydrAMINE 25 MG CAP PO PRN (01:27)
[2023-04-26] MEDS ORDERED: HYDROCORTISONE 2.5% RECTAL CREAM 30 GM TUBE RECTAL PRN (01:27)
[2023-04-26] MEDS ORDERED: ZOLPIDEM 5 MG TAB PO PRN (01:27)
[2023-04-26] MEDS ORDERED: diphenhydrAMINE 50 MG/ML 1 ML VIAL IVP PRN ×2 (01:27)
[2023-04-26] MEDS ORDERED: diphenhydrAMINE 50 MG CAP PO PRN (01:27)
[2023-04-26] MEDS ORDERED: BENZOCAINE/MENTHOL SPRAY 1 GM/SPRAY AEROSOL TOPICAL PRN (01:27)
[2023-04-26] MEDS ORDERED: SIMETHICONE 80 MG CHEWABLE PO PRN (01:27)
[2023-04-26] MEDS: IBUPROFEN 600 MG TAB PO PRN ×2 (01:41→14:17)
[2023-04-26] MEDS: ACETAMINOPHEN TAB 325 MG TAB PO PRN ×2 (03:49→19:01)
[2023-04-26] MEDS: LACTATED RINGERS 1,000 ML IV SCH ×2 (03:52→22:26)
--- NOTE | 2023-04-26 08:42 | P.HPOB ---
History of Present Illness H&P Date: 04/25/23 Chief Complaint: contractions and vaginal bleeding 19-year-old presents at 38 weeks and 4 days in active labor. Her cervix went from 2 cm to 5 centers dilated, 90% effaced, -2 station. She is jonny every 2-4 minutes. heart tones 135 with moderate variability and reactive. Review of Systems All systems: negative Constitutional: Denies chills, Denies fever Eyes: denies blurred vision, denies pain Ears, nose, mouth and throat: Denies headache, Denies sore throat Cardiovascular: Denies chest pain, Denies shortness of breath Respiratory: Denies cough Gastrointestinal: Denies abdominal pain, Denies diarrhea, Denies nausea, Denies vomiting Genitourinary: Denies dysuria, Denies hematuria Musculoskeletal: Denies myalgias Integumentary: Denies pruritus, Denies rash Neurological: Denies numbness, Denies weakness Psychiatric: Denies anxiety, Denies depression Endocrine: Denies fatigue, Denies weight change Past Medical History Past Medical History: Asthma, GERD/Reflux, Thyroid Disorder Additional Past Medical History / Comment(s): right sided abd. pain, diarrhea, N/V, gas, bloating for 3 months, states liver enlarged ((NAFLD), hashimotos, hypothyroid History of Any Multi-Drug Resistant Organisms: None Reported Past Surgical History: Breast Surgery, Orthopedic Surgery Additional Past Surgical History / Comment(s): childhood ear surgery, ACL repair right knee, facial reconstruction on the left side of her face due to a dog bite at age 1, breast biopsy Past Anesthesia/Blood Transfusion Reactions: No Reported Reaction Past Psychological History: ADD/ADHD, Anxiety, Depression Smoking Status: Current every day smoker Past Alcohol Use History: None Reported Additional Past Alcohol Use History / Comment(s): <3 cigs/day since age of 17 Past Drug Use History: None Reported Additional Drug Use History / Comment(s): occasional use not during - Past Family History Mother Family Medical History: No Reported History Medications and Allergies Home Medications Medication Instructions Recorded Confirmed Type Levothyroxine Sodium [Synthroid] 150 mcg PO DAILY 12/03/16 04/25/23 History Allergies Allergy/AdvReac Type Severity Reaction Status Date / Time morphine Allergy Rash/Hives Verified 04/25/23 18:40 Sulfa (Sulfonamide Allergy Rash/Hives Verified 04/25/23 18:40 Antibiotics) topiramate [From Topamax] Allergy Anaphylaxis Verified 04/25/23 18:40 Penicillins AdvReac Nausea & Verified 04/25/23 18:40 Vomiting Exam Osteopathic Statement: *. No significant issues noted on an osteopathic structural exam other than those noted in the History and Physical/Consult. Vital Signs Temp Pulse Resp BP Pulse Ox 04/26/23 03:55 98.5 F 78 16 118/55 98 04/26/23 00:04 75 16 126/70 04/25/23 23:34 68 16 128/70 04/25/23 23:04 97.4 F L 69 16 127/73 04/25/23 22:49 75 16 115/84 04/25/23 22:34 80 16 149/79 04/25/23 22:19 96.6 F L 60 16 160/86 04/25/23 22:04 86 16 153/89 04/25/23 19:45 97.0 F L 71 16 131/69 04/25/23 18:38 88 16 137/93 97 Intake and Output 04/25/23 04/26/23 04/26/23 22:59 06:59 14:59 Intake Total 622.117 Output Total 160 Balance 622.117 -160 Intake: Intake, IV Titration 622.117 Amount Oxytocin 30 Units/500 ml 622.117 Ns 30 unit In Saline 1 500ml.bag @ Per Protocol IV .Q0M [facility] Rx#:[id number] Output: Output, Quantitative 160 Blood Loss Other: # Voids 2 2 Weight 68.946 kg Heart: Regular rate and rhythm Lungs: Clear to auscultation bilaterally Abdomen: Soft, nontender Extremities: Negative Homans sign Results Result Diagrams: 04/25/23 18:50 Abnormal Lab Results - Last 24 Hours (Table) 04/25/23 Range/Units 18:50 WBC 14.7 H (3.8-10.6) k/uL Neutrophils # 11.5 H (1.3-7.7) k/uL Assessment and Plan (1) Normal labor Current Visit: No Status: Resolved Code(s): O80 - ENCOUNTER FOR FULL-TERM UNCOMPLICATED DELIVERY; Z37.9 - OUTCOME OF DELIVERY, UNSPECIFIED SNOMED Code(s): 59907239 Plan: 1. Admit to family place 2. Expectant management 3. Anticipate normal vaginal delivery
--- NOTE | 2023-04-26 08:44 | P.PROBDLV ---
Vaginal Delivery Note - . Vaginal Delivery Note: 27-year-old presents at 38 weeks and 4 days in active labor. Her cervix went from 2 cm to 5 centers dilated, 90% effaced, -2 station. She is jonny every 2-4 minutes. heart tones 135 with moderate variability and reactive. Amniotomy performed at 1931 and bloody fluid was noted. Her cervix was completely dilated at 2147. I was called to the [facility] maturity pushed once and the baby came out at 2148. Cord was clamped and cut infant placed on mother's abdomen. Apgars 8, 9, weight 6 lbs. 7 oz. Placenta delivered spontaneously, intact with three-vessel cord at 2150. Vagina, cervix, and perineum were inspected. No lacerations noted. Estimated blood loss 200 mL. Mother and baby in stable condition.
--- NOTE | 2023-04-26 08:45 | P.DS ---
Providers Date of admission: 04/25/23 19:15 Expected date of discharge: 04/26/23 Attending physician: Chana Llamas Primary care physician: Stated None - Discharge Diagnosis(es) (1) Normal labor Current Visit: No Status: Resolved (2) Normal vaginal delivery Current Visit: No Status: Acute Hospital Course: Patient presented in active labor. She underwent normal vaginal delivery. course has been uneventful. She denies nausea, vomiting, chest pain, shortness of breath or calf pain. She'll be discharged home day #1 in stable condition to follow-up with me in 6 weeks. Plan - Discharge Summary New Discharge Prescriptions: New Ibuprofen [Motrin] 600 mg PO Q6HR PRN #30 tab PRN Reason: Mild Pain (Scale 1 To 3) No Action Levothyroxine Sodium [Synthroid] 150 mcg PO DAILY Discharge Medication List Levothyroxine Sodium [Synthroid] 150 mcg PO DAILY 12/03/16 [History] Ibuprofen [Motrin] 600 mg PO Q6HR PRN #30 tab 04/26/23 [Rx] Follow up Appointment(s)/Referral(s): Chana Llamas DO [Doctor of Osteopathic Medicine] - 6 Weeks Discharge Disposition: HOME SELF-CARE
[2023-04-26] MEDS: SENNOSIDES-DOCUSATE SODIUM 1 EACH TAB PO SCH ×2 (08:54→22:25)
[2023-04-26 17:11] VITALS: BP 115/77; PULSE 85; TEMP 98.3
== END 2023-04-26 22:47 | disposition home or self-care (01) | DRG 560 ==
LOC: FBPOP 18:24 → 4FBP 19:15
PROVIDERS: ADMIT Obstetrics & Gynecology; ATTEND Obstetrics & Gynecology
PROC: 10E0XZZ Delivery of Products of Conception, External Approach (ICD-10-PCS; principal; 2023-04-25)
PROC: 10907ZC Drainage of Amniotic Fluid, Therapeutic from Products of Conception, Via Natural or Artificial Opening (ICD-10-PCS; 2023-04-25)
PROC: 3E033VJ Introduction of Other Hormone into Peripheral Vein, Percutaneous Approach (ICD-10-PCS; 2023-04-25)
DX: O99.334 Smoking (tobacco) complicating childbirth (principal); F32.A Depression, unspecified; F41.9 Anxiety disorder, unspecified; O26.62 Liver and biliary tract disorders in childbirth; O99.62 Diseases of the digestive system complicating childbirth; O99.52 Diseases of the respiratory system complicating childbirth; O99.284 Endocrine, nutritional and metabolic diseases complicating childbirth; F90.9 Attention-deficit hyperactivity disorder, unspecified type; J45.909 Unspecified asthma, uncomplicated; E06.3 Autoimmune thyroiditis; R16.0 Hepatomegaly, not elsewhere classified; K76.0 Fatty (change of) liver, not elsewhere classified; F17.210 Nicotine dependence, cigarettes, uncomplicated; O99.344 Other mental disorders complicating childbirth; Z3A.38 38 weeks gestation of pregnancy; Z37.0 Single live birth; Z79.890 Hormone replacement therapy; Z88.2 Allergy status to sulfonamides; Z88.5 Allergy status to narcotic agent; Z88.0 Allergy status to penicillin
CPT/HCPCS: 36415; 59025; 76815; 85025; 86850; 86900; 86901; 99213